=== PATIENT | male | born 1965 | race Caucasian/White ===

== ENCOUNTER 2019-02-04 08:05 | Inpatient (IN) | payer OTHER ==
--- NOTE | 2019-01-29 11:02 | RAD REPORT ---
EXAM DESCRIPTION: RAD - Chest Pa And Lat (2 Views) - 01/29/2019 10:56 am CLINICAL HISTORY: preop Chest pain. COMPARISON: Chest Single View dated 10/22/2018; Chest Single View dated 01/14/2017; Chest Single View d ated 10/13/2016 FINDINGS: The lungs are clear. The heart is normal in size. No displaced fractures. IMPRESSION: No acute or concerning finding suspected.
[2019-01-29 11:26] LABS: Protime INR 0.89
[2019-01-29 11:29] LABS: Absolute Lymphocytes (CBC) 1.9 K/uL (0.7-4.9); Basophils % 1.2 % (0-1.3); Eosinophils % 9.4 % (0-4.4); Hematocrit 42.4 % (39.6-49.0); Lymphocytes % 29.5 % (15.3-44.8); MPV 11.3 fL (7.6-11.3); RBC Red Blood Cell Count 5.22 M/uL (4.33-5.43)
[2019-01-29 11:35] LABS: BUN Blood Urea Nitrogen 20 mg/dL (7-18); Bicarbonate 24 mmol/L (21-32); Glucose Level 98 mg/dL (74-106); Potassium 4.3 mmol/L (3.5-5.1); Sodium Level 139 mmol/L (136-145)
[2019-01-29 12:38] LABS: Blood Morphology Comment NOT SEEN (NOT SEEN); Platelet Estimate DECR; Urine White Blood Cell Casts OK
--- NOTE | 2019-01-29 18:41 | EKG ---
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
[~2019-02-04 08:05] MED LIST: TRANEXAMIC ACID 1,000 MG in NA CHLORIDE 0.9% 50 ML IV SCH; VANCOMYCIN/NS 1 gm 1 GM/250 ML BAG IV SCH
--- OUTSIDE RECORDS SUMMARY | 2019-02-04 08:08 | XMS REPORT ---
:1965 Author Organization e[employer] Care Team Providers Name Role Phone Ribera Julian Provider Role Unavailable Allergies, Adverse Reactions, Alerts Substance Reaction Event Type N.K.D.A. Info Not Available Non Drug Allergy Problems Problem Type Condition Code Onset Dates Condition Status Problem Type 2 diabetes mellitus without E11.9 Active complication, without long-term current use of insulin Problem Essential hypertension I10 Active Problem Primary osteoarthritis of left knee M17.12 Active Assessment Pain in joint of left knee M25.562 Active Assessment Primary osteoarthritis of left knee M17.12 Active Problem Dyslipidemia E78.5 Active Medications Medication Code Code Instructions Start End Status Dosage System Date Date GlipiZIDE [facility] [address]-67 Active not defined Atenolol NDC 0 Active not defined Omeprazole NDC 0 Active not defined Farxiga NDC 0 Active not defined Gabapentin NDC 0 Active not defined PredniSONE [facility] 22457289764 20 MG Orally Active 1 tablet BID Augmentin [facility] 66444641264 875-125 MG Active 1 tablet Orally every 12 hrs Simvastatin [facility] [address]-28 Active not defined Metformin HCl [facility] [address]-81 Active not defined Results No Known Results Summary Purpose [facility]
--- OUTSIDE RECORDS SUMMARY | 2019-02-04 08:08 | XMS REPORT ---
[...] osteoarthritis of left knee M17.12 Active Assessment Primary osteoarthritis of left knee M17.12 Active Problem Dyslipidemia E78.5 Active Medications Medication Code Code Instructions Start End Status Dosage System Date Date Atenolol NDC 0 Active not defined Tramadol HCl [facility] 59973699611 50 MG Orally May 08, Active 1 tablet every 6 hrs 2017 as needed Farxiga NDC 0 Active not defined Gabapentin NDC 0 Active not defined Omeprazole NDC 0 Active not defined Metformin HCl [facility] [address]-97 Active not defined Simvastatin [facility] [address]-33 Active not defined GlipiZIDE [facility] [address]-64 Active not defined Results No Known Results Summary Purpose [employer] Submission
--- OUTSIDE RECORDS SUMMARY | 2019-02-04 08:09 | XMS REPORT ---
:1965 Author Organization e[employer] Care Team Providers Name Role Phone Julian Ribera Provider Role Unavailable Allergies, Adverse Reactions, Alerts [...] in joint of left knee M25.562 Active Problem Dyslipidemia E78.5 Active Medications Medication Code Code Instructions Start End Status Dosage System Date Date Tramadol HCl [facility] 50713431456 50 MG Orally Active 1 tablet as every 6 hrs needed Ibuprofen [facility] 20276584659 200 MG Orally Active 1 tablet Three times a with food day or milk as needed Simvastatin [facility] [address]-18 Active not defined Farxiga NDC 0 Active not defined GlipiZIDE [facility] [address]-54 Active not defined Atenolol NDC 0 Active not defined Lyrica [facility] 01107247625 25 MG Orally Active 2 capsules Twice a day Omeprazole [facility] 47918811215 Active not defined Metformin HCl [facility] [address]-46 Active not defined Results No Known Results Summary Purpose [employer] Submission
--- OUTSIDE RECORDS SUMMARY | 2019-02-04 08:09 | XMS REPORT ---
:1965 Author Organization e[employer] Care Team Providers Name Role Phone Julian Ribera Provider Role Unavailable Allergies No Known Allergies Problems Problem Type Condition Code Onset Dates Condition Status Problem Type 2 diabetes mellitus without E11.9 Active complication, without long-term current use of insulin Problem Essential hypertension I10 Active Problem Primary osteoarthritis of left knee M17.12 Active Problem Dyslipidemia E78.5 Active Medications Medication Code Code Instructions Start End Date Status Dosage System Date Tramadol HCl [facility] 73997485506 50 MG Orally December 09, Active 1 tablet every 6 hrs 2019 as needed Results No Known Results Summary Purpose [employer]Works Submission
--- OUTSIDE RECORDS SUMMARY | 2019-02-04 08:09 | XMS REPORT ---
[...] M17.12 Active Problem Dyslipidemia E78.5 Active Medications No Known Medications Results No Known Results Summary Purpose [employer] Submission
--- OUTSIDE RECORDS SUMMARY | 2019-02-04 08:09 | XMS REPORT ---
[...] Start End Status Dosage System Date Date Ibuprofen [facility] 36523558983 200 MG Orally Active 1 tablet Three times a with food day or milk as needed GlipiZIDE [facility] [address]-43 Active not defined Farxiga NDC 0 Active not defined Atenolol NDC 0 Active not defined Lyrica [facility] 88255242009 25 MG Orally Active 2 capsules Twice a day Simvastatin [facility] [address]-09 Active not defined Omeprazole [facility] [address]-04 Active not defined Metformin HCl [facility] [address]-89 Active not defined Tramadol HCl [facility] 68513759751 50 MG Orally Active 1 tablet as every 6 hrs needed Results No Known Results Summary Purpose [employer]ClinicalWorks Submission
--- OUTSIDE RECORDS SUMMARY | 2019-02-04 08:09 | XMS REPORT ---
[...] End Status Dosage System Date Date GlipiZIDE [facility] [address]-96 Active not defined Atenolol NDC 0 Active not defined Metformin HCl [facility] [address]-39 Active not defined Gabapentin NDC 0 Active not defined Simvastatin [facility] [address]-60 Active not defined Farxiga NDC 0 Active not defined Omeprazole NDC 0 Active not defined Tramadol HCl [facility] 42310269721 50 MG Orally Active 1 tablet every 6 hrs as needed Results No Known Results Summary Purpose [employer]Works Submission
--- OUTSIDE RECORDS SUMMARY | 2019-02-04 08:09 | XMS REPORT ---
[...] Status Dosage System Date Tramadol HCl [facility] 01563803824 50 MG Orally Aug 22, Active 1 tablet every 6 hrs PRN 2019 as needed pain Results No Known Results Summary Purpose [employer]ClinicalWorks Submission
--- OUTSIDE RECORDS SUMMARY | 2019-02-04 08:09 | XMS REPORT ---
[...] Problem Dyslipidemia E78.5 Active Medications Medication Code System Code Instructions Start End Date Status Dosage Date Xarelto [facility] 68887179718 10 MG Orally Once January 29, Active 1 tablet a day 2019 with food Results No Known Results Summary Purpose [employer]ClinicalWorks Submission
--- OUTSIDE RECORDS SUMMARY | 2019-02-04 08:09 | XMS REPORT ---
[...] Start End Date Status Dosage System Date Tylenol (#4) NDC 0 60/300 oral Q 6 February 02February 12, Active take 1 with codeine hrs PRN 2018 2018 tablet Tramadol HCl [facility] 93672789813 50 MG Orally February 02March 04, Active 1 tablet every 6 hrs 2018 2018 as needed Results No Known Results Summary Purpose [employer]ClinicalWorks Submission
[2019-02-04] MEDS ORDERED: CEFAZOLIN/SWI 2gm 2 GM/20 ML SYR ONE (08:46)
[2019-02-04] MEDS ORDERED: D50W 25 GM/50 ML SYRINGE IV ONE (08:46)
[2019-02-04] MEDS ORDERED: NA CHLORIDE 0.9% 1,000 ML ONE ×2 (08:46→14:08)
[2019-02-04] MEDS ORDERED: FENTANYL CITR 250 MCG/5 ML ONE ×2 (09:29→10:10)
[2019-02-04] MEDS ORDERED: MIDAZOLAM HCL 2 MG/2 ML INJ ONE ×2 (09:29→10:10)
[2019-02-04] MEDS ORDERED: PROPOFOL 200 MG/20 ML VIAL IV ONE (09:29)
[2019-02-04] MEDS ORDERED: LIDOCAINE 2% MPF 5 ML VIAL ONE (09:29)
[2019-02-04] MEDS ORDERED: EPINEPHRINE/PF 1 MG/ML AMP ONE (10:10)
[2019-02-04] MEDS ORDERED: DEXAMETHASONE 4 MG/ML VIAL ONE (10:10)
[2019-02-04] MEDS ORDERED: ROPLVACAINE HCL 20 ML ONE (10:11)
[2019-02-04] MEDS: BUPIVACA 0.5%/EPI 0.0005%/PF 30 ML VIAL ONE ×2 (12:03→13:40)
[2019-02-04] MEDS: NA CHLORIDE 0.9% 1,000 ML ONE ×2 (12:05→12:25)
[2019-02-04] MEDS ORDERED: KETOROLAC 30 MG/ML INJ ONE (13:36)
[2019-02-04] MEDS: HYDROMORPHONE HCL 2 MG/ML inj ONE ×4 (14:15→14:39)
--- NOTE | 2019-02-04 14:19 | P.BOP ---
Preoperative diagnosis: left knee osteoarthritis Postoperative diagnosis: same Primary procedure: left total knee arthroplasty Development Planner: NONE,NONE Estimated blood loss: 20 cc Specimen: left knee bone remnants Findings: see dictation Anesthesia: General Complications: None Implants: Ric Persona 9 STD CR femur, G tibia, 10 mm CR Poly Fluids & blood products: per anesthesia record; TT: 80 mins @ 300 mmHg Transferred to: Recovery Room Condition: Good
[2019-02-04] MEDS ORDERED: DOCUSATE NA 100 MG CAP PO PRN (14:20)
[2019-02-04] MEDS ORDERED: ONDANSETRON 4 MG/2 ML VIAL IV PRN (14:20)
[2019-02-04] MEDS ORDERED: TRAMADOL HCL 50 MG TAB PO PRN (14:23)
[2019-02-04] MEDS: HYDROMORPHONE HCL 1 MG/ML INJ ONE ×2 (14:49→15:06)
--- NOTE | 2019-02-04 15:10 | RAD REPORT ---
EXAM DESCRIPTION: RAD - Knee Left 2 View - 02/04/2019 2:59 pm CLINICAL HISTORY: Left knee surgery FINDINGS: Postsurgical changes left knee arthroplasty. Prosthesis is in good position No fracture or dislocation
[2019-02-04 15:13] LABS: Hematocrit 41.6 % (39.6-49.0)
[2019-02-04] MEDS ORDERED: MORPHINE 4 MG/ML SYR IV ONE ×2 (15:25→15:32)
[2019-02-04] MEDS: MORPHINE 4 MG/ML SYR IV PRN ×3 (15:25→21:19)
[2019-02-04 15:29] VITALS: O2SAT 97
[2019-02-04] MEDS ORDERED: GLUCAGON 1 MG/VIAL IM PRN (15:58)
[2019-02-04] MEDS ORDERED: D50W 25 GM/50 ML SYRINGE IV PRN (15:58)
--- NOTE | 2019-02-04 16:00 | P.CNS ---
Date of Consult: 02/04/19 Reason for Consult: Medical management Requesting Physician: Julian Ribera Primary Care Provider: Dr. Tamayo; Ortho-Dr. Ribera Chief Complaint: Status post left total knee replacement History of Present Illness: 53-year-old male presented to the hospital for elective surgery-left total knee replacement. Patient with underlying diabetes mellitus type 2-non insulin dependent, hypertension, hyperlipidemia and diabetic neuropathy. Patient has been suffering from left knee arthritis. Patient has failed conservative treatment including corticosteroid and Visco supplemental injections. Patient had total left knee replacement today. I was consulted for medical management. Patient currently stable at this time postoperatively. Patient with well controlled diabetes and hypertension. No complaints noted at this time. Allergies acetaminophen [From Vicodin] Allergy (Verified 01/29/19 10:07) Unknown hydrocodone [From Vicodin] Allergy (Verified 01/29/19 10:07) Unknown Home medications list reviewed: Yes Home Medications: Atenolol 100 mg PO [id number] 10/19/18 Dapagliflozin Propanediol [Farxiga] 10 mg PO DAILY 10/19/18 Metformin ER [Glucophage ER*] 1,000 mg PO BID 10/19/18 Omeprazole 20 mg PO BID 10/19/18 Pregabalin [Lyrica] 100 mg PO BID 10/19/18 Simvastatin 40 mg PO BEDTIME 10/19/18 glipiZIDE [Glipizide] 5 mg PO BID 10/19/18 Semaglutide [Ozempic] 0.25 mg SQ EVERY 7TH DAY 01/29/19 - Past Medical/Surgical History Diabetic: Yes -: Diabetes mellitus type 2, non-insulin dependent -: Hyperlipidemia -: Neuropathy -: Obstructive sleep apnea -: Asthma -: Osteoarthritis -: HTN -: Left foot fx repair (pin in place) -: Left knee sx x7 -: tonsillectomy -: Right 1st and 2nd toe amputations -: hernia repair Psychosocial/ Personal History: Patient is - Family History Father Medical History: Hypertension, Diabetes Sister Medical History: Diabetes Mother Medical History: Diabetes, Stroke Notes: breast - Social History Smoking Status: Current every day smoker Alcohol use: Yes CD- Drugs: No Caffeine use: Yes Place of Residence: Home Review of Systems General: As per HPI Eyes: Unremarkable ENT: Unremarkable Respiratory: Unremarkable Cardiovascular: Unremarkable Gastrointestinal: Unremarkable Genitourinary: Unremarkable Musculoskeletal: Leg Pain Integumentary: Unremarkable Neurological: Unremarkable Lymphatics: Unremarkable Physical Examination Temp Pulse Resp BP Pulse Ox 97.8 F 88 14 147/79 H 02/04/19 15:01 02/04/19 15:01 02/04/19 15:01 02/04/19 15:01 General: Alert, In no apparent distress, Cooperative HEENT: Atraumatic, Normocephalic, PERRLA, Mucous membr. moist/pink Neck: Supple Respiratory: Clear to auscultation bilaterally, Normal air movement Cardiovascular: Normal pulses, Regular rate/rhythm Gastrointestinal: Normal bowel sounds, Soft and benign, Non-distended, No tenderness, No masses, No rebound, No guarding Musculoskeletal: Other (Postoperative changes noted to the left knee) Neurological: Normal speech, Normal strength at 5/5 x4 extr, Normal tone, Normal affect Laboratory Data (last 24 hrs) 02/04/19 14:42: Hgb 13.2 L, Hct 41.6 Conclusions/Impression: Impression: Severe left knee arthritis, failed conservative therapy status post total left knee replacement Diabetes mellitus type 2, [id number] Hypertension Hyperlipidemia Obstructive sleep apnea Plan: Case discussed at length with orthopedics. Patient status post total left knee replacement. Will restart home medications for diabetes, hypertension, hyperlipidemia. Patient will continue with CPAP at night. DVT prophylaxis to be initiated. Pain medication will be provided. Physical therapy to be initiated tomorrow. Orthopedics plan of care is likely discharge on Saturday with home health/physical therapy. Will continue to reassess. Will provide Accu-Cheks and sliding scale. Will follow along with Orthopedics. Time Spent Managing Pts care (In Minutes): 55
[2019-02-04] MEDS: INSULIN -REGULAR HUMAN 50 UNIT/0.5 ML ML SQ SCH ×2 (16:30→21:27)
[2019-02-04] MEDS: CEFAZOLIN/SWI 2gm 2 GM/20 ML SYR IVP SCH (17:02)
[2019-02-04 19:49] VITALS: BMI 36.3
[2019-02-04] MEDS: CODEINE 30MG/APAP 300MG TAB PO PRN ×2 (20:02→23:59)
[2019-02-04] MEDS ORDERED: HOME MED 1 EA UNK (Pregabalin [Lyrica] 100 MG) PO SCH (21:00)
[2019-02-04] MEDS ORDERED: METFORMIN 1000 MG PO SCH (21:00)
[2019-02-04] MEDS ORDERED: HOME MED 1 EA UNK (Simvastatin [Simvastatin] 40 MG) PO SCH (21:00)
[2019-02-04] MEDS ORDERED: HOME MED 1 EA UNK (Omeprazole [Omeprazole] 20 MG) PO SCH (21:00)
[2019-02-04] MEDS ORDERED: GLIPIZIDE 5 MG PO SCH (21:00)
--- NOTE | 2019-02-04 22:20 | P.OP ---
Preoperative diagnosis: left knee osteoarthritis Postoperative diagnosis: same Primary procedure: left total knee arthroplasty Anesthesia: general Estimated blood loss: 20 cc Specimen: left knee bone remnants Findings: see dictation Operative Technique: Indication For Procedure: Alessandro is a 53-year-old male, who presented to my clinic with left knee pain due to left knee osteoarthritis. The patient failed conservative treatment measures including home exercises, corticosteroid injections and viscosupplementation injections. He reported continued pain that affect his activities of daily living. He was recommended for total knee arthoplasty. Description Of Procedure: After informed consent was obtained, the patient was identified in preop holding area. The left lower extremity was marked. The patient underwent a femoral nerve block performed by Anesthesia. He was then taken back to the operative room and transferred to the operating table in supine fashion and placed under general anesthesia. The left lower extremity was then prepped and draped in usual sterile fashion. A time-out was initiated. Correct patient and procedure were confirmed and identified. The patient had received preoperative prophylactic antibiotics. The right lower extremity was exsanguinated and the tourniquet was inflated to 300 mmHg. Approximately, a 20 cm longitudinal incision was made over the anterior aspect of the knee centered over the patella. A standard median parapatellar approach was taken. The dissection was taken to the extensor mechanism. A median parapatellar arthrotomy was then performed. The patella was then everted and the fat pad and medial and lateral meniscus were excised. A lateral release was performed of the patella and osteophytes were removed using a rongeur. There was minimal cartilage wear on the undersurface of the patella and it was decided to not resurface the patella. Next, attention was taken to the femur, retractors were placed within the knee and the knee was held in flexion. A partial synovectomy was performed over the anterior aspect of the distal femur. A cutting block has been created preoperatively using CT imaging and the block was then placed over the distal femur and then positioned and was stacked into place and pins were placed within the guide hole in the block. The distal femoral cutting guide was then placed over the pre-placed guide pin and the distal femur was cut after proper confirming using an Albert wing. After this was performed, the anterior-posterior distal femoral cuts were made as well as the chamfer cut without complication. MCL and lateral collateral were protected as well as patellar tendon with knee retractors. Bone remnants were then removed and sent to Pathology. Next attention was taken to the proximal tibia. The soft tissue medially was then elevated off the proximal tibia directly off bone using Bovie electrocautery. Pre-made cutting block was placed over the proximal tibia and once locked into position, pin were placed as well as the alignment margaux was used to ensure proper placement of the cutting guide. There was overall good alignment and position of the cutting guide. Pins were then placed. The cutting block was removed. The cutting guide was placed on the proximal tibia and again the albert wing was then used to ensure proper depth of the cut. An osteotome then used to make cuts around the PCL and the saw was used to cut the proximal tibia and the proximal tibial cut was then removed with the meniscal grasper. Bone fragments were then removed and meniscectomies were completed. Next, the knee was held in 90 degrees of flexion and forward extension and a 10-mm guide was then selected and there was good overall fit and stability in flexion and extension. Next, the trials were placed, size 9 CR standard femur was placed and a size G tibia with a 10 mm poly. The knee was then ranged and had good stability, both in forward flexion and extension and had full range of motion. The knee was ranged and there was good stability of the patella as well as the rest of the knee. The tibia was marked with the Bovie electrocautery. The femur was drilled and once in proper position and the tibia was punched. Trial implants were then removed. The knee was then irrigated thoroughly with pulsed lavage normal saline. A 0.5% Marcaine with epinephrine was then used 30 cc for local anesthetic and to aid with postoperative pain control. The cement was prepared as well as the implant. Size G tibia was then placed followed by the size 9 standard CR femur. Excess cement was then removed using [place] elevator. A 10-mm trial poly was then placed and the knee was held in full extension as the cement hardened. Once the cement was completely hardened, the knee was ranged with good overall stability as well as good flexion and extension. Trial poly ethylene liner was removed and a final 10 mm CR poly was placed and locked in position. The knee was again irrigated thoroughly with normal saline. The tourniquet was let down. Hemostasis was achieved with Bovie electrocautery. The extensor mechanism was closed with #1 Vicryl in an interrupted fashion followed by #1 Vicryl in a running fashion. Fascia was then approximated using 0 Vicryl. Subcutaneous tissue was approximated used 2-0 Vicryl and the skin was approximated using a skin staple. Sterile dressings were applied. The patient was awakened and transferred to PACU in stable condition. Postoperative Plan: He will be weightbearing as tolerated. Physical therapy will be consulted to aid with mobilization and he will be admitted for pain management and blood pressure monitoring given his history of diabetes mellitus , hyperlipidemia and hypertension. He will stay at least 2 midnights while in the hospital. CPM machine will be placed in the PACU postoperatively. Complications: None Implants: Ric Persona Size 9 STD femur, G tibia, 10 mm CR poly Fluids & blood products: per anesthesia record; TT: 80 mins @ 300 mmHg Transferred to: Recovery Room Condition: Good
[2019-02-05] MEDS: CEFAZOLIN/SWI 2gm 2 GM/20 ML SYR IVP SCH ×2 (00:02→08:31)
[2019-02-05] MEDS: MORPHINE 4 MG/ML SYR IV PRN ×4 (04:34→21:01)
[2019-02-05] MEDS ORDERED: ATENOLOL 100 MG PO SCH (06:00)
[2019-02-05] MEDS: ENOXAPARIN 30 MG/0.3 ML SQ SCH ×2 (06:03→08:32)
[2019-02-05] MEDS: CODEINE 30MG/APAP 300MG TAB PO PRN ×5 (06:03→23:18)
[2019-02-05 06:22] LABS: Absolute Lymphocytes (CBC) 1.3 K/uL (0.7-4.9); Basophils % 0.6 % (0-1.3); Eosinophils % 0.7 % (0-4.4); Hematocrit 38.5 % (39.6-49.0); Lymphocytes % 14.2 % (15.3-44.8); MPV 10.8 fL (7.6-11.3); Monocytes % 12.1 % (3.3-12.3); RBC Red Blood Cell Count 4.71 M/uL (4.33-5.43)
[2019-02-05] MEDS: INSULIN -REGULAR HUMAN 50 UNIT/0.5 ML ML SQ SCH ×4 (07:30→21:00)
--- NOTE | 2019-02-05 08:07 | P.PN ---
Subjective Date of Service: 02/05/19 Primary Care Provider: Dr. Tamayo; Ortho-Dr. Ribera Chief Complaint: Status post left total knee replacement some breakthrough pain overnight as block wore off; Tylenol #3 not providing adequate pain relief at this time Physical Examination - Vital Signs Temperature: 97.9 F Blood Pressure: 112/57 Pulse: 84 Respirations: 18 Pulse Ox (%): 96 - Physical Exam General: Alert, In no apparent distress Musculoskeletal: Other (LLE: dressing c/d/i; NVI distally) - Studies Laboratory Data (last 24 hrs) 02/05/19 05:45: WBC 9.0 D, Hgb 12.6 L, Hct 38.5 L, Plt Count 158 D 02/04/19 14:42: Hgb 13.2 L, Hct 41.6 Assessment And Plan - Plan Alessandro is a 53 yo male s/p L TKA POD#1 w/ h/o DM, HTN -Dr. Curry for medical management -PT to mobilize; WBAT LLE -lovenox for DVT prophylaxis -will make tramadol 50 mg scheduled Q6 hours to aid with pain control
[2019-02-05] MEDS: CELECOXIB 100 MG CAPSULE PO SCH (08:29)
[2019-02-05] MEDS: TRAMADOL HCL 50 MG TAB PO SCH ×3 (08:29→19:38)
[2019-02-05] MEDS ORDERED: HOME MED 1 EA UNK (Dapagliflozin Propanediol [Farxiga] 10 MG) PO SCH (09:00)
--- NOTE | 2019-02-05 14:48 | P.PN ---
Subjective Date of Service: 02/05/19 Primary Care Provider: Dr. Tamayo; Ortho-Dr. Ribera Chief Complaint: Status post left total knee replacement Subjective: Doing well (Patient reports some pain to the knee this morning.) Physical Examination - Vital Signs Temperature: 97.9 F Blood Pressure: 112/57 Pulse: 84 Respirations: 18 Pulse Ox (%): 96 - Physical Exam General: Alert, In no apparent distress, Oriented x3, Cooperative HEENT: Atraumatic Neck: Supple Respiratory: Clear to auscultation bilaterally, Normal air movement Cardiovascular: Normal pulses, Regular rate/rhythm Gastrointestinal: Normal bowel sounds, Soft and benign, Non-distended Neurological: Normal speech, Normal strength at 5/5 x4 extr, Normal tone - Studies Laboratory Data (last 24 hrs) 02/05/19 05:45: WBC 9.0 D, Hgb 12.6 L, Hct 38.5 L, Plt Count 158 D 02/04/19 14:42: Hgb 13.2 L, Hct 41.6 Medications List Reviewed: Yes Assessment & Plan Discharge Plan: Home Plan to discharge in: 24 Hours Physician Review Additional Text: Impression: Severe left knee arthritis, failed conservative therapy status post total left knee replacement Diabetes mellitus type 2, pbc-tfubyhi-pquqduvxr Hypertension Hyperlipidemia Obstructive sleep apnea Plan: Patient to start physical therapy. Pain medication adjusted by orthopedics. Continue with DVT prophylaxis-Lovenox. Patient continues with home medications for diabetes, hypertension and hyperlipidemia. Arrangements for Dc planning in place. Likely discharge as early as tomorrow. Patient will do outpatient physical therapy in [place]. Continue to monitor and assess closely. Lab stable. Time Spent Managing Pts Care (In Minutes): 55
[2019-02-06] MEDS: MORPHINE 4 MG/ML SYR IV PRN ×4 (01:04→13:49)
[2019-02-06] MEDS: TRAMADOL HCL 50 MG TAB PO SCH ×3 (02:19→14:25)
[2019-02-06] MEDS: CODEINE 30MG/APAP 300MG TAB PO PRN (04:22)
[2019-02-06 06:31] LABS: Absolute Lymphocytes (CBC) 1.2 K/uL (0.7-4.9); Basophils % 0.4 % (0-1.3); Eosinophils % 2.8 % (0-4.4); Hematocrit 38.5 % (39.6-49.0); Lymphocytes % 17.7 % (15.3-44.8); MPV 11.1 fL (7.6-11.3); Monocytes % 14.2 % (3.3-12.3)
[2019-02-06] MEDS: INSULIN -REGULAR HUMAN 50 UNIT/0.5 ML ML SQ SCH ×2 (07:30→11:30)
[2019-02-06] MEDS: CELECOXIB 100 MG CAPSULE PO SCH (08:30)
[2019-02-06] MEDS ORDERED: ENOXAPARIN 40 MG/0.4 ML SQ SCH (09:00)
[2019-02-06] MEDS ORDERED: TYLENOL PO PRN (09:00)
[2019-02-06] MEDS ORDERED: ENOXAPARIN 30 MG/0.3 ML SQ SCH (09:00)
--- NOTE | 2019-02-06 10:02 | P.PN ---
Subjective Date of Service: 02/06/19 Primary Care Provider: Dr. Tamayo; Ortho-Dr. Ribera Chief Complaint: Status post left total knee replacement Subjective: Other (Patient reported pain to the left lower extremity. Medications for pain yesterday by orthopedics.) Physical Examination - Vital Signs Temperature: 97.8 F Blood Pressure: 164/83 Pulse: 98 Respirations: 16 Pulse Ox (%): 94 - Physical Exam General: Alert, In no apparent distress, Oriented x3, Cooperative HEENT: Atraumatic Neck: Supple Respiratory: Clear to auscultation bilaterally, Normal air movement Cardiovascular: Normal pulses, Regular rate/rhythm Gastrointestinal: Normal bowel sounds, Soft and benign Musculoskeletal: Other (Left lower extremity currently an oscillating machine.) Neurological: Normal speech, Normal strength at 5/5 x4 extr, Normal tone, Normal affect - Studies Laboratory Data (last 24 hrs) 02/06/19 06:03: WBC 7.1 D, Hgb 12.4 L, Hct 38.5 L, Plt Count 130 L Medications List Reviewed: Yes Assessment & Plan Discharge Plan: Home Plan to discharge in: 24 Hours Physician Review Additional Text: Impression: Severe left knee arthritis, failed conservative therapy status post total left knee replacement Diabetes mellitus type 2, smn-ryssgtt-wyijhxbgr Hypertension Hyperlipidemia Obstructive sleep apnea Plan: Severe left knee arthritis, failed conservative therapy status post total left knee replacement: Orthopedics adjusted pain medications yesterday. Pain medication to be adjusted today. Tylenol #3 increased to Tylenol #4. Will increase Lyrica to 150 mg 1 pill twice daily for better pain control. Patient to continue with physical therapy today. Likely discharge as early as today. Patient plans to do outpatient physical therapy at [place]. There is plan for outpatient DVT oral prophylaxis at discharge. Await recommendations by orthopedics about discharge. Diabetes mellitus type 2, gfd-vulfeyc-xrezujjvf: Overall stable. Continue with home medication. Hypertension: Stable. Continue with home medication. Hyperlipidemia: Stable, continue with home medication. Obstructive sleep apnea: Continue with CPAP at night. Time Spent Managing Pts Care (In Minutes): 55
--- NOTE | 2019-02-06 11:52 | P.DS ---
Admission Date: 02/04/19 Discharge Date: 02/06/19 Primary Care Provider: Dr. Tamayo; Ortho-Dr. Ribera Disposition: ROUTINE DISCHARGE Discharge Condition: GOOD Reason for Admission: Status post left total knee replacement Consultations: Dr. Curry- Hospitalist Medicine Procedures: Left total knee arthroplasty on 02/04/2019 Brief History of Present Illness: Alessandro is a 53 yo male w/ PMHx of DM, HTN, hyperlipidemia and underwent L TKA on 02/06/2019 without complication Hospital Course: Alessandro underwent L TKA on 02/04/19 without complication and was admitted to the floor. Dr. Curry was consulted for medical management while on the floor. His blood glucose was monitored and his vital signs remained stable while on the floor. Physical therapy was consulted and aided with mobilization while in the hospital. He was discharged on 02/06/2019 in stable condition. He was on lovenox for DVT prophylaxis while in the hospital and will start Xarelto while at home. Vital Signs/Physical Exam: Temp Pulse Resp BP Pulse Ox 97.8 F 98 H 16 164/83 H 94 02/06/19 10:01 02/06/19 10:01 02/06/19 10:01 02/06/19 10:01 02/06/19 10:01 Laboratory Data at Discharge: WBC 7.1 K/uL (4.3-10.9) D 02/06/19 06:03 Hgb 12.4 g/dL (13.6-17.9) L 02/06/19 06:03 Hct 38.5 % (39.6-49.0) L 02/06/19 06:03 Plt Count 130 K/uL (152-406) L 02/06/19 06:03 PT 10.6 SECONDS (9.5-12.5) 01/29/19 10:35 INR 0.89 01/29/19 10:35 APTT 30.8 SECONDS (24.3-36.9) 01/29/19 10:35 Sodium 139 mmol/L (136-145) 01/29/19 10:35 Potassium 4.3 mmol/L (3.5-5.1) 01/29/19 10:35 BUN 20 mg/dL (7-18) H 01/29/19 10:35 Creatinine 0.82 mg/dL (0.55-1.3) 01/29/19 10:35 Glucose 98 mg/dL (74-106) 01/29/19 10:35 Home Medications: Atenolol 100 mg PO [id number] 10/19/18 Dapagliflozin Propanediol [Farxiga] 10 mg PO DAILY 10/19/18 Metformin ER [Glucophage ER*] 1,000 mg PO BID 10/19/18 Omeprazole 20 mg PO BID 10/19/18 Pregabalin [Lyrica] 100 mg PO BID 10/19/18 Simvastatin 40 mg PO BEDTIME 10/19/18 glipiZIDE [Glipizide] 5 mg PO BID 10/19/18 Semaglutide [Ozempic] 0.25 mg SQ EVERY 7TH DAY 01/29/19 Tylenol #4 1 tab PO Q6HP PRN 02/06/19 traMADol HCL [Ultram*] 50 mg PO Q6H tab 02/06/19 Patient Discharge Instructions: keep dressing c/d/i; change dressing with new aquacel bandage on Saturday02/09/19 and clean incision with alcohol swabs; begin Xarelto on 02/07/2019 with breakfast for DVT prophylaxis Diet: ADA Activity: Weight bearing as tolerated Followup: Julian Ribera MD [ACTIVE - CAN ADMIT] -
[2019-02-06 13:10] VITALS: BP 100/73; TEMP 97.3
[2019-02-06] MEDS ORDERED: PREGABALIN 150 MG PO SCH (21:00)
[2019-02-11] MEDS ORDERED: SEMAGLUTIDE 0.25 MG SQ SCH (09:00)
== END 2019-02-06 14:31 | disposition home or self-care (01) | DRG 470 ==
LOC: PRE 08:05 → 2ND 15:21 → 4TH 02-05 20:44
PROVIDERS: ADMIT Orthopaedic Surgery Sports Medicine; ATTEND Orthopaedic Surgery Sports Medicine
PROC: 0SRD0J9 Replacement of Left Knee Joint with Synthetic Substitute, Cemented, Open Approach (ICD-10-PCS; principal; 2019-02-04 09:45)
DX: M17.12 Unilateral primary osteoarthritis, left knee (principal); E11.40 Type 2 diabetes mellitus with diabetic neuropathy, unspecified; I10 Essential (primary) hypertension; E78.5 Hyperlipidemia, unspecified; G47.33 Obstructive sleep apnea (adult) (pediatric); F17.210 Nicotine dependence, cigarettes, uncomplicated; Z79.84 Long term (current) use of oral hypoglycemic drugs
CPT/HCPCS: 36415; 71046; 80048; 82962; 85014; 85018; 85025; 85610; 85730; 88304; 88305; 88311; 93005; 97110; 97116; 97139; 97163; 97530; J0171; J0690; J1170; J1650; J2250; J2704; J2795; J3010; J3370; J7030

== ENCOUNTER 2020-05-25 11:22 | Emergency (ER) | payer OTHER ==
--- OUTSIDE RECORDS SUMMARY | 2020-05-25 11:25 | XMS REPORT | Continuity of Care Document ---
:1965 Author Organization [facility] t Address [address] [place] [address] Care Team Providers Name Role Phone Unavailable Unavailable Unavailable Problems Condition Condition Condition Status Onset Resolution Last Treating Co mments Source Name Details Category Date Date Treatment Clinician Date Type 2 Type [address] [facility] diabetes diabetes [facility] - mellitus mellitus Mem[facility] a without without l complicati complicati Ou tpati on, on, ent without without Clinics long-term long-term current current use of use of insulin insulin Essential Essential Problem Active [facility] hypertensi hypertensi Taya kes - on on [facility] Primary Primary Problem Active [facility] osteoarthr osteoarthr Taya kes - itis of itis of Memoria left knee left knee l [facility] Dyslipidem Dyslipidem Problem Active [facility] ia ia [facility] Presence Presence Problem Active [facility] left of left [facility] - artificial artificial Me moria knee joint knee joint l [facility] Pain, Pain, Diagnosis Active [facility] joint, joint, [facility] - knee, left knee, left Me moria l [facility] Allergies, Adverse Reactions, Alerts This patient has no known allergies or adverse reactions. Medications Ordered Filled Start Stop Current Ordering Indication Dosage Frequency Signature Comments Components Source Medication Medication Date Date Medication? Clinician (SIG) Name Name Tramadol Tramadol 2019-0 2019- No Julian [address] [facility] HCl HCl 03-02 Ribera as needed [facility] - 00:00: 00:00 [facility] 00 [facility] ent Clinics Xarelto Xarelto 2019-0 Yes Julian [address] [facility] 6-20 Ribera with food [facility] - 00:[facility]: [facility] Lyrica Lyrica Yes Julian [address] [facility]era [facility] Ibuprofen Ibuprofen Yes Julian [address] [facility] Rbiera with food [facility] - or milk as Memoria needed l Outpati ent Clinics Atenolol Atenolol Yes Julian not [facility] Ribera defined [facility] Tylenol Tylenol Yes Julian not [facility] (#4) with (#4) with Ribera defined Taya kes - codeine codeine [facility] Farxiga Farxiga Yes Julian not [facility]era defined [facility] GlipiZIDE GlipiZIDE Yes Julian not [facility] defined [facility] Omeprazole Omeprazole Yes Julian not [facility]era defined [facility] Ozempic Ozempic Yes Julian not [facility] Ribera defined [facility] Simvastatin Simvastatin Yes Julian not [facility]era defined [facility] Metformin Metformin Yes Julian not [facility] HCl HCl [facility] defined [facility] Procedures This patient has no known procedures. Encounters Start End Encounter Admission Attending Care Care Encounter Source Date/Time Date/Time Type Type Clinicians Facility Department ID 2020-02-15 2020-02-15 Outpatient Mic Gruber [id number] [facility] 15:[facility]00 15:00[facility]00 [facility] 2019-07-30 2019-07-30 Outpatient Mic Gruber [id number] [facility] 15:30:00 15:30:00 t [facility] 2019-05-04 2019-05-04 Outpatient Mic Gruber [id number] [facility] 15:30:00 15:30:00 t [facility] 2019-03-23 2019-03-23 [facility] [id number] [facility] 11:00:00 11:00:00 t [facility] 2019-03-02 2019-03-02 [facility] [id number] [facility] 08:59:00 08:59:00 t [facility] 2019-02-17 2019-02-17 [facility] [id number] [facility] 14:30:00 14:30:00 t [facility] 2019-02-05 2019-02-05 [facility] [id number] [facility] [address] 10:30:00 10:30:00 t [facility] 2019-02-05 2019-02-05 [facility] [id number] [facility] 09[facility]38:00 09:38:00 t [facility] 2019-02-03 2019-02-03 [facility] [id number] [facility] 13:19:00 13:19:00 t [facility] 2019-02-02 2019-02-02 [facility] [id number] [facility] 14:39:00 14:39:00 t [facility] 2019-02-02 2019-02-02 [facility] [id number] [facility] 12:32:00 12:32:00 t [facility] 2019-01-29 2019-01-29 [facility] [id number] [facility] [address] 13:21:00 13:21:00 t [facility] 2019-01-29 2019-01-29 [facility] [id number] [facility] [address] 11:43:00 11:43:00 t [facility] 2019-01-29 2019-01-29 [facility] [id number] [facility] 09:33:00 09:33:00 t [facility] 2018-12-22 2018-12-22 [facility] [id number] [facility] [address] 14:29:00 14:29:00 t [facility] 2018-12-10 2018-12-10 [facility] [id number] [facility] 14:29:00 14:29:00 t [facility] 2018-12-09 2018-12-09 [facility] [id number] [facility] [address] 11:06:00 11:06:00 t [facility] 2018-12-08 2018-12-08 [facility] [id number] [facility] 14:04:00 14:04:00 t [facility] 2018-12-03 2018-12-03 [facility] [id number] [facility] 08:30:00 08:30:00 t [facility] 2018-09-29 2018-09-29 [facility] [id number] [facility] 15:00:00 15:00:00 t [facility] 2018-08-22 2018-08-22 [facility] [id number] [facility] 11:04:00 11:04:00 t [facility] 2018-05-20 2018-05-20 Outpatient Mic Gruber [id number] [facility] 15:30:00 15:30:00 t [facility] 2018-05-08 2018-05-08 Outpatient Mic Gruber [id number] [facility] 08:30:00 08:30:00 t [facility] 2018-04-28 2018-04-28 Outpatient Mic Gruber [id number] [facility] 13:30:00 13:30:00 t [facility] Results This patient has no known results.
--- NOTE | 2020-05-25 12:11 | ER ---
Nurse's Notes [facility] Name: Alessandro Taylor Age: 54 yrs Sex: Male : 1965 Arrival Date: 05/25/2020 Time: 11:29 Bed 23 Private MD: Diagnosis: Laceration without foreign body of right thumb without damage to nail Presentation: 05/25 11:33 Chief complaint: Patient states: Lac on R thumb by a knife on Saturday. Now swelling , ca1 draining a bit, tender and red. Coronavirus screen: Client denies travel out of the [place] in the last 14 days. At this time, the client does not indicate any symptoms associated with coronavirus-19. Ebola Screen: Patient negative for fever greater than or equal to 101.5 degrees Fahrenheit, and additional compatible Ebola Virus Disease symptoms Patient denies exposure to infectious person. Patient denies travel to an Ebola-affected area in the 21 days before illness onset. No symptoms or risks identified at this time. Initial Sepsis Screen: Does the patient meet any 2 criteria? No. Patient's initial sepsis screen is negative. Does the patient have a suspected source of infection? No. Patient's initial sepsis screen is negative. Risk Assessment: Do you want to hurt yourself or someone else? Patient reports no desire to harm self or others. Onset of symptoms was May 23, 2020. 11:33 Method Of Arrival: Ambulatory ca1 11:33 Acuity: ROBERT 5 ca1 12:06 Acuity: ROBERT 4 hb Historical: - Allergies: 11:40 HYDROCODONE; ca1 11:40 Vicodin; ca1 - Home Meds: 11:40 atenolol 100 mg Oral tab 1 tab once daily [Active]; Jardiance oral oral [Active]; ca1 glipizide 10 mg Oral tab 1 tab once daily [Active]; Lyrica 150 mg Oral 1 cap daily [Active]; metformin 1,000 mg Oral tr24 2 tabs once daily [Active]; omeprazole 40 mg oral cpDR 1 cap once daily [Active]; simvastatin 40 mg Oral tab 1 tab once daily [Active]; - PMHx: 11:40 Diabetes - NIDDM; GERD; High Cholesterol; Hyperlipidemia; Hypertension; osteomyelitis; ca1 - PSHx: 11:40 toe amputation; Hernia repair; ca1 - Immunization history:: Adult Immunizations up to date, Last tetanus immunization: up to date. - Social history:: Smoking status: Patient reports the use of cigarette tobacco products, smokes one-half pack cigarettes per day. Screenin:12 Abuse screen: Denies threats or abuse. Denies injuries from another. Nutritional hb screening: No deficits noted. Tuberculosis screening: No symptoms or risk factors identified. Fall Risk None identified. Assessment: 12:12 General: Appears in no apparent distress. Behavior is calm, cooperative. Pain: Pain hb currently is 6 out of 10 on a pain scale. Neuro: Level of Consciousness is awake, alert, obeys commands, Oriented to person, place, time, situation. Cardiovascular: Capillary refill < 3 seconds Patient's skin is warm and dry. Respiratory: Respiratory effort is even, unlabored, Respiratory pattern is regular, symmetrical. GI: No signs and/or symptoms were reported involving the gastrointestinal system. : No signs and/or symptoms were reported regarding the genitourinary system. EENT: No signs and/or symptoms were reported regarding the EENT system. Derm: Skin is pink, warm \T\ dry. Musculoskeletal: No signs and/or symptoms reported regarding the musculoskeletal system. Injury Description: Laceration sustained to dorsal aspect of proximal phalanx of right thumb is not bleeding. 12:24 Reassessment: Discharge pending shot time. hb Vital Signs: 11:33 BP 130 / 69; Pulse 83; Resp 15 S; Temp 97.1(TE); Pulse Ox 99% on R/A; Weight 117.03 kg ca1 (R); Height 5 ft. 10 in. (177.80 cm) (R); Pain 6/10; 11:33 Body Mass Index 37.02 (117.03 kg, 177.80 cm) ca1 ED Course: 11:29 Patient arrived in ED. mr 11:37 Triage completed. ca1 11:40 Arm band placed on right wrist. ca1 11:54 Roseann Sheehan, LUIS FELIPE is Primary Nurse. hb 12:05 Chino Goldstein PA is PHCP. jr8 12:05 Fede Rodriguez MD is Attending Physician. jr8 12:12 Patient has correct armband on for positive identification. Bed in low position. Call hb light in reach. 12:12 No provider procedures requiring assistance completed. hb 12:12 Patient did not have IV access during this emergency room visit. 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 Exp: hb 10/01/2022. Lot #: [id number]. } Route: IM; Site: right deltoid; 12:36 Follow up: Response: No adverse reaction hb Outcome: 12:10 Discharge ordered by MD. grant 12:36 Discharged to home ambulatory. hb 12:36 Condition: stable 12:36 Discharge instructions given to patient, Instructed on discharge instructions, follow up and referral plans. medication usage, wound care, Demonstrated understanding of instructions, follow-up care, medications, wound care, Prescriptions given X 1. 12:37 Patient left the ED. Signatures: Venus Alex mr Chino Goldstein PA PA jr8 Roseann Sheehan, RN RN Shereen Mills RN RN ca1
--- NOTE | 2020-05-25 12:11 | EDPHYS ---
Physician Documentation [facility] Name: Alessandro Taylor Age: 54 yrs Sex: Male : 1965 Arrival Date: 05/25/2020 Time: 11:29 Bed 23 Private MD: ED Physician Fede Rodriguez HPI: 05/25 13:06 This 54 yrs old Male presents to ER via Ambulatory with complaints of Thumb jr8 laceration. 13:06 The patient or guardian reports a laceration, 2.5 cm(s), simple. The complaints affect jr8 the IP of right thumb. Onset: The symptoms/episode began/occurred acutely, 2 day(s) ago. Modifying factors: The symptoms are alleviated by nothing, the symptoms are aggravated by movement. Associated signs and symptoms: The patient has no apparent associated signs or symptoms. Severity of symptoms: At their worst the symptoms were mild, in the emergency department the symptoms are unchanged. The patient has not experienced similar symptoms in the past. The patient has not recently seen a physician. Stated that he was cleaning deer meat and accidently but his thumb with knife . Historical: - Allergies: 11:40 HYDROCODONE; ca1 11:40 Vicodin; ca1 - Home Meds: 11:40 atenolol 100 mg Oral tab 1 tab once daily [Active]; Jardiance oral oral [Active]; ca1 glipizide 10 mg Oral tab 1 tab once daily [Active]; Lyrica 150 mg Oral 1 cap daily [Active]; metformin 1,000 mg Oral tr24 2 tabs once daily [Active]; omeprazole 40 mg oral cpDR 1 cap once daily [Active]; simvastatin 40 mg Oral tab 1 tab once daily [Active]; - PMHx: 11:40 Diabetes - NIDDM; GERD; High Cholesterol; Hyperlipidemia; Hypertension; osteomyelitis; ca1 - PSHx: 11:40 toe amputation; Hernia repair; ca1 - Immunization history:: Adult Immunizations up to date, Last tetanus immunization: up to date. - Social history:: Smoking status: Patient reports the use of cigarette tobacco products, smokes one-half pack cigarettes per day. ROS: 13:06 Eyes: Negative for injury, pain, redness, and discharge, ENT: Negative for injury, jr8 pain, and discharge, Neck: Negative for injury, pain, and swelling, Cardiovascular: Negative for chest pain, palpitations, and edema, Respiratory: Negative for shortness of breath, cough, wheezing, and pleuritic chest pain, Abdomen/GI: Negative for abdominal pain, nausea, vomiting, diarrhea, and constipation, Back: Negative for injury and pain, Neuro: Negative for headache, weakness, numbness, tingling, and seizure. 13:06 MS/extremity: Positive for laceration. Exam: 13:06 Constitutional: This is a well developed, well nourished patient who is awake, alert, jr8 and in no acute distress. Cardiovascular: Regular rate and rhythm with a normal S1 and S2. No gallops, murmurs, or rubs. Normal PMI, no JVD. No pulse deficits. Respiratory: Lungs have equal breath sounds bilaterally, clear to auscultation and percussion. No rales, rhonchi or wheezes noted. No increased work of breathing, no retractions or nasal flaring. MS/ Extremity: Pulses equal, no cyanosis. Neurovascular intact. Full, normal range of motion. Neuro: Awake and alert, GCS 15, oriented to person, place, time, and situation. Cranial nerves II-XII grossly intact. Motor strength 5/5 in all extremities. Sensory grossly intact. Cerebellar exam normal. Normal gait. 13:06 Skin: injury, laceration(s), the wound is approximately 2.5 cm(s), with a depth of .2 cm(s), of the IP of right thumb, that can be described as clean, no foreign body, linear, without bleeding. Vital Signs: 11:33 BP 130 / 69; Pulse 83; Resp 15 S; Temp 97.1(TE); Pulse Ox 99% on R/A; Weight 117.03 kg ca1 (R); Height 5 ft. 10 in. (177.80 cm) (R); Pain 6/10; 11:33 Body Mass Index 37.02 (117.03 kg, 177.80 cm) ca1 MDM: 12:08 Patient medically screened. jr8 12:09 Data reviewed: vital signs, nurses notes, and as a result, I will discharge patient. jr8 Data interpreted: Pulse oximetry: on room air is 99 %. Interpretation: normal. Counseling: I had a detailed discussion with the patient and/or guardian regarding: the historical points, exam findings, and any diagnostic results supporting the discharge/admit diagnosis, the need for outpatient follow up, a family practitioner, to return to the emergency department if symptoms worsen or persist or if there are any questions or concerns that arise at home. ED course: Discussed with patient that because laceration happened on Saturday and he is diabetic. Would be worse to try and suture at this point. No large gap noted. Should secondarily heal just fine. Will put on Abx and f/u with PCP. Patient good with this . 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 Exp: hb 10/01/2022. Lot #: [id number]. } Route: IM; Site: right deltoid; 12:36 Follow up: Response: No adverse reaction hb Disposition: 14:46 Co-signature as Attending Physician, Fede Rodriguez MD I agree with the assessment and kdr plan of care. Disposition: 05/25/20 12:10 Discharged to Home. Impression: Laceration without foreign body of right thumb without damage to nail. - Condition is Stable. - Discharge Instructions: Delayed Wound Closure. - Prescriptions for Bactrim DS 800- 160 mg Oral Tablet - take 1 tablet by ORAL route every 12 hours for 7 days; 14 tablet. - Medication Reconciliation Form, Thank You Letter, Antibiotic Education, Prescription Opioid Use form. - Follow up: Private Physician; When: 5 - 6 days; Reason: Wound Recheck, Recheck today's complaints, Continuance of care, Re-evaluation by your physician. - Problem is new. - Symptoms have improved. Signatures: Fede Rodriguez MD MD [facility] Chino Goldstein PA PA jr8 Roseann Sheehan RN RN Shereen Mills RN RN [facility] Corrections: (The following items were deleted from the chart) 12:37 12:10 05/25/2020 12:10 Discharged to Home. Impression: Laceration without foreign body hb of right thumb without damage to nail. Condition is Stable. Forms are Medication Reconciliation Form, Thank You Letter, Antibiotic Education, Prescription Opioid Use. Follow up: Private Physician; When: 5 - 6 days; Reason: Wound Recheck, Recheck today's complaints, Continuance of care, Re-evaluation by your physician. Problem is new. Symptoms have improved. jr8
[2020-05-25] MEDS ORDERED: TETANUS & DIPHTHERIA TOX,ADULT 0.5 ML VIAL ONE (12:23)
[2020-05-25 12:46] VITALS: BP 130/69; TEMP 97.1; O2SAT 99
== END 2020-05-25 12:37 | disposition home or self-care (01) ==
LOC: ER 11:22
DX: S61.011A Laceration without foreign body of right thumb without damage to nail, initial encounter (principal); W26.0XXA Contact with knife, initial encounter; Y93.89 Activity, other specified; Y92.9 Unspecified place or not applicable; Z23 Encounter for immunization; Z88.5 Allergy status to narcotic agent; F17.210 Nicotine dependence, cigarettes, uncomplicated; I10 Essential (primary) hypertension; E11.9 Type 2 diabetes mellitus without complications
CPT/HCPCS: 90471; 90714; 99283

== ENCOUNTER 2022-01-29 15:22 | Emergency (ER) | payer BC, OTHER ==
--- OUTSIDE RECORDS SUMMARY | 2022-01-29 15:25 | XMS REPORT | Continuity of Care Document ---
:1965 Author Organization [facility] t Address [address] [place] [address] Care Team Providers Name Role Phone ALEC Primary Care Physician Unavailable Doug Attending Clinician Unavailable DR ALEC Attending Clinician Unavailable [id number] Attending Clinician Unavailable [id number] Attending Clinician Unavailable DR RICHIE Attending Clinician Unavailable [phone] Attending Clinician Unavailable Doug Admitting Clinician Unavailable DR ALEC Admitting Clinician Unavailable DR RICHIE Admitting Clinician Unavailable Payers Payer Name Policy Type Policy Number Effective Date Expiration Date S ource [facility] BLUE [id number] [facility] BLUE [place] BL[place] [id number] [facility] Problems This patient has no known problems. Allergies, Adverse Reactions, Alerts Allergy Allergy Status Severity Reaction(s) Onset Inactive Treating Comm ents Source Name Type Date Date Clinician No Known MA Active UNKNOWN [facility] Medications Ordered Filled [place] Stop Current Ordering Indication Dosage Frequency Signature Comments Components Source Medication Medication Date Date Medication? Clinician (SIG) Name Name Tramadol Tramadol 2018- 2019- No Julian 1 tablet Common HCl HCl 03-02 Ribera as needed [facility] 00:00: 00:00 - [facility] :00 [facility] Xarelto Xarelto 2018- Yes Julian 1 tablet Common 6-20 Ribera with food [facility] 00:00: - [facility] 00 [facility] Lyrica Lyrica Yes Julian 2 capsules Co mmon Ribera [facility] Ibuprofen Ibuprofen Yes Julian 1 tablet Common Ribera with food [facility] or milk as - [facility] needed [facility] Atenolol Atenolol Yes Julian not Comm on Ribera defined [facility] Tylenol Tylenol Yes Julian not Common (#4) with (#4) with Ribera defined Sp beto codeine codeine [facility] Farxiga Farxiga Yes Julian not Common Ribera defined [facility] GlipiZIDE GlipiZIDE Yes Julian not Co mmon Ribera defined [facility] Omeprazole Omeprazole Yes Julian not Common Ribera defined [facility] Ozempic Ozempic Yes Julian not Common Ribera defined [facility] Simvastatin Simvastatin Yes Julian not Common Ribera defined [facility] Metformin Metformin Yes Julian not Co mmon HCl HCl Ribera defined [facility] Procedures This patient has no known procedures. Encounters [place] End Encounter Admission Attending Care Care Encounter Source Date/Time Date/Time Type Type Clinicians Facility Department ID 2021-12-22 Outpatient [facility] [id number] El 12:07:01 [id number] [facility] 2021-12-08 Outpatient [place], [facility] [id number] Common 09:23:00 Justice [id number] [facility] 2021-09-06 Outpatient [place], [facility] [id number] Common 13:22:17 Justice [id number] [facility] 2021-09-06 Outpatient [place], [facility] [id number] Common 11:29:36 Justice [id number] [facility] 2022-01-28 2022-01-28 Outpatient [facility] [id number] El 11:27:00 13:14:00 [id number] [facility] [id number] [facility] 2021-12-22 2021-12-22 Outpatient DELMAR FAYE [facility] [id number] 12:08:00 12:40:00 [id number] [facility] 2021-12-11 2021-12-11 ambulatory [facility] [id number] Common 00:00:00 00:00:00 [facility] 2021-02-14 2021-02-14 Outpatient [facility] [id number] Common 00:00:00 00:00:00 [facility] 2020-02-15 2020-02-15 [facility] [id number] Common 15:00:00 15:00:00 [facility] 2019-07-30 2019-07-30 [facility] [id number] Common 15:30:00 15:30:00 [facility] 2019-05-04 2019-05-04 [facility] [id number] Common 15:30:00 15:30:00 t [facility] 2019-03-23 2019-03-23 [facility] [id number] Common 11:00:00 11:00:00 t [facility] 2019-03-02 2019-03-02 [facility] [id number] Common 08:59:00 08:59:00 t [facility] 2019-02-17 2019-02-17 [facility] [id number] Common 14:30:00 14:30:00 t [facility] 2019-02-05 2019-02-05 [facility] [id number] Common 10:30:00 10:30:00 t [facility] Bone [facility] 2019-02-05 2019-02-05 [facility] [id number] Common 09:38:00 09:38:00 t [facility] Sp[facility] 2019-02-03 2019-02-03 [facility] [id number] Common 13:19:00 13:19:00 t [facility] Bone [facility] Sp[facility] 2019-02-02 2019-02-02 [facility] [id number] Common 14:39:00 14:39:00 t [facility] Bone [facility] Spiri t and Joint [facility] 2019-02-02 2019-02-02 [facility] [id number] Common 12:32:00 12:32:00 t [facility] Bone [facility] Sp[facility] 2019-01-29 2019-01-29 [facility] [id number] Common 13:21:00 13:21:00 t [facility] Bone [facility] Spiri t and Joint [facility] 2019-01-29 2019-01-29 [facility] [id number] Common 11:43:00 11:43:00 t Bone Bone and Spiri t and Joint [facility] 2019-01-29 2019-01-29 [facility] [id number] Common 09:33:00 09:33:00 t Bone Bone and Spiri t and Joint [facility] 2018-12-22 2018-12-22 [facility] [id number] Common 14:29:00 14:29:00 t Bone Bone and Spiri t and Joint [facility] 2018-12-10 2018-12-10 [facility] [id number] Common 14:29:00 14:29:00 t Bone Bone and Spiri t and Joint [facility] 2018-12-09 2018-12-09 [facility] [id number] Common 11:06:00 11:06:00 t Bone Bone and Spiri t and Joint [facility] 2018-12-08 2018-12-08 [facility] [id number] Common 14:04:00 14:04:00 t Bone Bone and Spiri t and Joint [facility] 2018-12-03 2018-12-03 [facility] [id number] Common 08:30:00 08:30:00 t Bone Bone and Spiri t and Joint [facility] 2018-09-29 2018-09-29 [facility] [id number] Common 15:00:00 15:00:00 t Bone Bone and Spiri t and Joint [facility] 2018-08-22 2018-08-22 [facility] [id number] Common 11:04:00 11:04:00 t Bone Bone and Spiri t and Joint [facility] 2018-05-20 2018-05-20 [facility] [id number] Common 15:30:00 15:30:00 t Bone Bone and Spiri t and Joint [facility] 2018-05-08 2018-05-08 [facility] [id number] Common 08:30:00 08:30:00 t Bone Bone and Spiri t and Joint [facility] 2018-04-28 2018-04-28 [facility] [id number] Common 13:30:00 13:30:00 t Bone Bone and Spiri t and Joint [facility] Results This patient has no known results.
[2022-01-29] MEDS ORDERED: Ringers Lactate 1,000 ML IV ONE (16:58)
[2022-01-29 17:11] LABS: Absolute Lymphocytes (CBC) 0.4 K/uL (0.7-4.9); Hematocrit 41.2 % (39.6-49.0); Lymphocytes % 7.8 % (15.3-44.8); MPV 9.6 fL (7.6-11.3); RBC Red Blood Cell Count 5.45 M/uL (4.33-5.43)
[2022-01-29 17:41] LABS: Albumin 3.6 g/dL (3.4-5.0); Bilirubin Total 0.6 mg/dL (0.2-1.0); Potassium 4.4 mmol/L (3.5-5.1); Protein, Total 7.7 g/dL (6.4-8.2)
--- NOTE | 2022-01-29 18:08 | RAD REPORT ---
EXAM DESCRIPTION: CTAbdomen Pelvis W Contrast - 01/29/2022 5:59 pm CLINICAL HISTORY: Diarrhea, fever COMPARISON: <Comparisons> TECHNIQUE: CT of the abdomen and pelvis was performed. All CT scans are performed using dose optimization technique as appropriate and may include automated exposure control or mA/KV adjustment according to patient size. FINDINGS: Lower chest: No acute abnormality. Liver: No acute abnormality or suspicious lesions. Biliary: No biliary ductal dilatation. Stomach: No significant focal abnormality. Duodenum: No significant focal abnormality. Pancreas: No significant abnormality. Spleen: No significant abnormality. Adrenal: No suspicious lesions. Kidney/ureter: No hydronephrosis. No renal calculi. Retroperitoneum: No retroperitoneal adenopathy. Vascular: No aneurysm. Atherosclerosis Bowel: Circumferential thickening of the ascending and proximal transverse colon. Stranding is presen t.. Normal appendix. No bowel obstruction. Peritoneum: No ascites or free air. Bladder: Grossly unremarkable. Reproductive: No adnexal masses. Bones: No acute fracture. Other: n/a IMPRESSION: Colitis involving the ascending and proximal transverse colon with differential to inclu de infectious, inflammatory, as well as ischemic etiologies. Normal appendix.
[2022-01-29] MEDS ORDERED: METRONIDAZOLE 500mg IVPB 500 MG/100 ML BAG IV ONE (19:46)
--- NOTE | 2022-01-29 19:54 | ER ---
Nurse's Notes [facility] Name: Alessandro Taylor Age: 56 yrs Sex: Male : 1965 Arrival Date: 01/29/2022 Time: 15:27 Bed 13 Private MD: Justice Camacho Diagnosis: Colitis Presentation: 01/29 16:32 Chief complaint: Pt's sates "he started with diarrhea since Saturday, worked aa5 outside in heat all day and Saturday woke up with chills and he had a fever of 103.0*F". Pt's states "I took him to urgent care yesterday and they said his blood pressure was low and his heart rate was high and they advised us to go to the ER". Pt denies vomiting and reports taking Imodium since Saturday night without any relief. Pt also c/o "pain all over". Coronavirus screen: diarrhea, vomiting. Ebola Screen: No symptoms or risks identified at this time. Initial Sepsis Screen: Does the patient meet any 2 criteria? HR > 90 bpm. Does the patient have a suspected source of infection? No. Patient's initial sepsis screen is negative. Risk Assessment: Do you want to hurt yourself or someone else? Patient reports no desire to harm self or others. Onset of symptoms was January 2022. 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 - Social history:: Smoking status: Patient/guardian denies using tobacco. Screenin:09 Abuse screen: Denies threats or abuse. Denies injuries from another. Nutritional sm5 screening: No deficits noted. Tuberculosis screening: No symptoms or risk factors identified. Fall Risk None identified. Assessment: 21:09 General: Appears in no apparent distress. Behavior is cooperative. Pain: Complains of sm5 pain in abdomen. Neuro: No deficits noted. Level of Consciousness is awake, alert, obeys commands, Oriented to person, place, time, situation. Cardiovascular: No deficits noted. Capillary refill < 3 seconds Patient's skin is warm and dry. Respiratory: No deficits noted. Airway is patent Trachea midline Respiratory effort is even, unlabored. GI: Abdomen is obese, Reports diarrhea. 22:00 Reassessment: No changes from previously documented assessment. Patient and/or family 5 updated on plan of care and expected duration. Pain level reassessed. Vital Signs: 16:32 BP 96 / 54; Pulse 104; Resp 18 S; Temp 98.9(O); Pulse Ox 100% on R/A; Weight 117.03 kg aa5 (R); Height 5 ft. 10 in. (177.80 cm) (R); 20:06 BP 111 / 63; Pulse 108; Resp 17; Temp 102.3(O); sm5 21:08 BP 97 / 57; Pulse 101; Resp 18; Pulse Ox 94% on R/A; sm5 21:18 Pulse 99; Resp 18; Temp 99.7(O); Pulse Ox 96% on R/A; sm5 21:35 BP 97 / 55; Pulse 96; Resp 18; Pulse Ox 96% on R/A; sm5 21:40 BP 90 / 51 RA Sitting (auto/); Pulse 95; sm5 21:45 BP 82 / 57 RA Standing (auto/); Pulse 97; sm5 22:34 BP 98 / 53; Pulse 94; Resp 17; Pulse Ox 97% on R/A; sm5 16:32 Body Mass Index 37.02 (117.03 kg, 177.80 cm) aa5 ED Course: 15:27 Patient arrived in ED. am2 15:27 Justice Camacho MD is Private Physician. am2 16:30 Arm band placed on. aa5 16:40 Triage completed. aa5 16:47 Nathaniel De La Garza PA is PHCP. aa5 16:47 Javier Frye MD is Attending Physician. aa5 17:00 Initial lab(s) drawn, by me, sent to lab. Inserted saline lock: 20 gauge in right aa5 antecubital area, using aseptic technique. Blood collected. 18:01 CT Abd/Pelvis - IV Contrast Only In Process Unspecified. EDMS 18:36 Call light in reach. Side rails up X 1. Door closed. Noise minimized. Warm blanket mb7 given. 19:09 Isabella Hutchinson LUIS FELIPE is Primary Nurse. 5 22:34 No provider procedures requiring assistance completed. IV discontinued, intact, sm5 bleeding controlled, No redness/swelling at site. Pressure dressing applied. Administered Medications: 17:00 Drug: Lactated Ringers Solution 1000 ml Route: IV; Rate: 1000 bolus; Site: right aa5 antecubital; 17:02 CANCELLED (Physician Discretion; no nausea reportedd): Zofran (Ondansetron) 4 mg IVP aa5 once; over 2 minutes 20:05 Drug: Flagyl (metroNIDAZOLE) 500 mg Volume: 100 ml; Route: IVPB; Rate: 200 ml/hr; sm5 Infused Over: 30 mins; Site: left antecubital; 20:22 Follow up: IV Status: Completed infusion; IV Intake: 100ml 5 20:13 Drug: Acetaminophen 1000 mg Route: PO; sm5 20:43 Follow up: Response: No adverse reaction 5 20:22 Drug: Cipro (ciprofloxacin) 400 mg Volume: 200 ml; Route: IVPB; Infused Over: 60 mins; sm5 Site: left antecubital; 21:52 Follow up: IV Status: Completed infusion; IV Intake: 200ml 5 21:07 Drug: NS 0.9% 500 ml Route: IV; Rate: bolus; Site: left antecubital; sm5 21:52 Follow up: IV Status: Completed infusion; IV Intake: 500ml 5 Medication: 21:09 VIS not applicable for this client. sm5 Intake: 20:22 IV: 100ml; Total: 100ml. sm5 21:52 IV: 500ml; Total: 600ml. sm5 21:52 IV: 200ml; Total: 800ml. 5 Outcome: 19:54 Discharge ordered by . jim 22:34 Discharged to home ambulatory, with significant other. 5 22:34 Condition: stable 22:34 Discharge instructions given to patient, significant other, Instructed on discharge instructions, follow up and referral plans. no drinking with medication, medication usage, Demonstrated understanding of instructions, follow-up care, medications, Prescriptions given X 4. 22:35 Patient left the ED. 5 Signatures: Dispatcher [employer] EDMS Nathaniel De La Garza PA PA jmm Calderon, Audri, RN RN aa5 Alexa Stanford Mary mb7 Isabella Hutchinson, RN RN sm5 Corrections: (The following items were deleted from the chart) 16:40 16:32 Initial Sepsis Screen: Does the patient meet any 2 criteria? HR > 90 bpm. Does aa5 the patient have a suspected source of infection? No. Patient's initial sepsis screen is negative. aa5 16:40 16:32 Resp 18bpm; Spontaneous; Temp 98.9F Oral; aa5 aa5 21:51 21:43 BP 97 / 55; Pulse 96bpm; Resp 18bpm; Pulse Ox 96% RA; sm5 sm5
--- NOTE | 2022-01-29 19:54 | EDPHYS ---
Physician Documentation [facility] Name: Alessandro Taylor Age: 56 yrs Sex: Male : 1965 Arrival Date: 01/29/2022 Time: 15:27 Bed 13 Private MD: Justice Camacho ED Physician Javier Frye HPI: 01/29 16:41 This 56 yrs old Male presents to ER via Ambulatory with complaints of Diarrhea, Fever. jmm 16:41 The patient presents to the emergency department with nausea, diarrhea, abdominal pain. jmm Onset: The symptoms/episode began/occurred gradually, 4 day(s) ago. Possible causes: unknown. The symptoms are aggravated by nothing. The symptoms are alleviated by nothing. This is a 56 year old male with a history of dm, hlp, htn that presents to the ED with complaints of diarrhea beginning approx 4 to 5 days ago. Patient also states working outside. Denies vomiting but states having some nausea. . Historical: - Allergies: 16:31 HYDROCODONE; aa5 16:31 Vicodin; aa5 - PMHx: 16:31 Diabetes - NIDDM; GERD; High Cholesterol; Hyperlipidemia; Hypertension; osteomyelitis; aa5 16:37 Diabetic wound to right foot; aa5 - Immunization history:: Adult Immunizations unknown. - Social history:: Smoking status: Patient/guardian denies using tobacco. ROS: 16:41 Constitutional: Positive for body aches, chills, fever. jmm 16:41 Abdomen/GI: Positive for abdominal pain, nausea, diarrhea. 16:41 All other systems are negative. Exam: 16:41 Constitutional: This is a well developed, well nourished patient who is awake, alert, jmm and in no acute distress. Head/Face: atraumatic. Eyes: EOMI, no conjunctival erythema appreciated ENT: Moist Mucus Membranes Neck: Trachea midline, Supple Chest/axilla: Normal chest wall appearance and motion. Cardiovascular: Regular rate and rhythm. No edema appreciated Respiratory: Normal respirations, no respiratory distress appreciated 16:41 Back: Normal ROM Skin: General appearance color normal MS/ Extremity: Moves all extremities, no obvious deformities appreciated, no edema noted to the lower extremities Neuro: Awake and alert Psych: Behavior is normal, Mood is normal, Patient is cooperative and pleasant 16:41 Abdomen/GI: Inspection: abdomen appears normal, Bowel sounds: normal, Palpation: soft, mild abdominal tenderness, in all quadrants. Vital Signs: 16:32 BP 96 / 54; Pulse 104; Resp 18 S; Temp 98.9(O); Pulse Ox 100% on R/A; Weight 117.03 kg aa5 (R); Height 5 ft. 10 in. (177.80 cm) (R); 20:06 BP 111 / 63; Pulse 108; Resp 17; Temp 102.3(O); sm5 21:08 BP 97 / 57; Pulse 101; Resp 18; Pulse Ox 94% on R/A; sm5 21:18 Pulse 99; Resp 18; Temp 99.7(O); Pulse Ox 96% on R/A; sm5 21:35 BP 97 / 55; Pulse 96; Resp 18; Pulse Ox 96% on R/A; sm5 21:40 BP 90 / 51 RA Sitting (auto/); Pulse 95; sm5 21:45 BP 82 / 57 RA Standing (auto/); Pulse 97; sm5 22:34 BP 98 / 53; Pulse 94; Resp 17; Pulse Ox 97% on R/A; sm5 16:32 Body Mass Index 37.02 (117.03 kg, 177.80 cm) aa5 MDM: 16:53 Patient medically screened. [facility] 18:49 Data reviewed: vital signs, nurses notes. [facility] 19:53 Counseling: I had a detailed discussion with the patient and/or guardian regarding: the [facility] historical points, exam findings, and any diagnostic results supporting the discharge/admit diagnosis, lab results, radiology results, the need for outpatient follow up, to return to the emergency department if symptoms worsen or persist or if there are any questions or concerns that arise at home. 01/29 16:41 Order name: CBC with Diff; Complete Time: 17:19 [facility] 01/29 16:41 Order name: CMP; Complete Time: 17:43 [facility] 01/29 16:41 Order name: Lipase; Complete Time: 17:43 [facility] 01/29 17:28 Order name: CT Abd/Pelvis - IV Contrast Only; Complete Time: 18:12 [facility] 01/29 16:41 Order name: IV Saline Lock; Complete Time: 17:02 [facility] 01/29 16:41 Order name: Labs collected and sent; Complete Time: 17:02 aa5 Administered Medications: 17:00 Drug: Lactated Ringers Solution 1000 ml Route: IV; Rate: 1000 bolus; Site: right aa5 antecubital; 17:02 CANCELLED (Physician Discretion; no nausea reportedd): Zofran (Ondansetron) 4 mg IVP aa5 once; over 2 minutes 20:05 Drug: Flagyl (metroNIDAZOLE) 500 mg Volume: 100 ml; Route: IVPB; Rate: 200 ml/hr; sm5 Infused Over: 30 mins; Site: left antecubital; 20:22 Follow up: IV Status: Completed infusion; IV Intake: 100ml sm5 20:13 Drug: Acetaminophen 1000 mg Route: PO; sm5 20:43 Follow up: Response: No adverse reaction 5 20:22 Drug: Cipro (ciprofloxacin) 400 mg Volume: 200 ml; Route: IVPB; Infused Over: 60 mins; sm5 Site: left antecubital; 21:52 Follow up: IV Status: Completed infusion; IV Intake: 200ml sm5 21:07 Drug: NS 0.9% 500 ml Route: IV; Rate: bolus; Site: left antecubital; 5 21:52 Follow up: IV Status: Completed infusion; IV Intake: 500ml sm5 Disposition Summary: 01/29/22 19:54 Discharge Ordered Location: Home [facility] Condition: Stable [facility] Diagnosis - Colitis [facility] Followup: [facility] - With: Private Physician - When: 2 - 3 days - Reason: Recheck today's complaints, Continuance of care, Re-evaluation by your physician Discharge Instructions: - Discharge Summary Sheet [facility] - Diarrhea, Adult [facility] Forms: - Medication Reconciliation Form [facility] - Thank You Letter [facility] - Antibiotic Education [facility] - Prescription Opioid Use [facility] Prescriptions: - Cipro 500 mg Oral Tablet - take 1 tablet by ORAL route every 12 hours for 10 days; 20 tablet; Refills: 0, [facility] Product Selection Permitted - Flagyl 500 mg Oral Tablet - take 1 tablet by ORAL route every 6 hours for 10 days; 40 tablet; Refills: 0, [facility] Product Selection Permitted - ondansetron 4 mg Oral tablet,disintegrating - take 1 tablet by ORAL route every 4-6 hours As needed; 20 tablet; Refills: 0, [facility] Product Selection Permitted - dicyclomine 20 mg Oral Tablet - take 1 tablet by ORAL route 4 times per day; 20 tablet; Refills: 0, Product jim Selection Permitted Signatures: Dispatcher [employer] Nathaniel Duarte PA PA jmm Calderon, Audri RN RN aa5 Isabella Hutchinson RN RN sm5 Corrections: (The following items were deleted from the chart) 17:02 16:51 Zofran (Ondansetron) 4 mg IVP once; over 2 minutes ordered. jim aa5
[2022-01-29] MEDS ORDERED: ACETAMINOPHEN 500 MG TAB ONE (20:16)
[2022-01-29] MEDS ORDERED: CIPROFLOXACIN 400mg IV 400 MG/200 ML BAG IV ONE (20:23)
[2022-01-29] MEDS ORDERED: NA CHLORIDE 0.9% 500 ML ONE (21:12)
[2022-01-29 23:08] VITALS: TEMP 99.7
[2022-01-29 23:14] VITALS: BP 98/53; O2SAT 97
== END 2022-01-29 22:35 | disposition home or self-care (01) ==
LOC: ER 15:22
DX: K52.9 Noninfective gastroenteritis and colitis, unspecified (principal); I10 Essential (primary) hypertension; Z88.5 Allergy status to narcotic agent
CPT/HCPCS: 85025; 36415; 83690; 80053; 74177; Q9967; J7120; J7040; J3490; J0744; 96365; 96367; 99284

== ENCOUNTER 2022-02-02 18:58 | Inpatient (IN) | payer BC, OTHER ==
--- OUTSIDE RECORDS SUMMARY | 2022-02-02 19:01 | XMS REPORT | Continuity of Care Document ---
:1965 Author Organization [facility] t Address [address] [place] [address] Care Team Providers Name Role Phone ALEC Primary Care Physician Unavailable Doug Attending Clinician Unavailable DR ALEC Attending Clinician Unavailable [phone] Attending Clinician Unavailable [id number] Attending Clinician Unavailable DR RICHIE Attending Clinician Unavailable [phone] Attending Clinician Unavailable Doug Admitting Clinician Unavailable DR ALEC Admitting Clinician Unavailable DR RICHIE Admitting Clinician Unavailable Payers Payer Name Policy Type Policy Number Effective Date Expiration Date S ource [facility] BLUE [id number] [facility] BLUE CROSS BLUE [id number] [facility] Problems This patient has no known problems. Allergies, Adverse Reactions, Alerts Allergy Allergy Status Severity Reaction(s) Onset Inactive Treating Comm ents Source Name Type Date Date Clinician No Known MA Active UNKNOWN [facility] Medications Ordered Filled Start Stop Current Ordering Indication Dosage Frequency Signature Comments Components Source Medication Medication Date Date Medication? Clinician (SIG) Name Name Tramadol Tramadol 2018- 2019- No Julian 1 tablet Common HCl HCl 03-02- Ribera as needed Spirit 00:00: 00:00 - [facility] 00 :00 [facility] Xarelto Xarelto 2018- Yes Julian 1 tablet Common 6-20 Ribera with food [facility] 00:00: - [facility] 00 [facility] Lyrica Lyrica Yes Julian 2 capsules Co mmon Ribera [facility] Ibuprofen Ibuprofen Yes Julian 1 tablet Common Ribera with food Spirit or milk as - [facility] needed [facility] Atenolol Atenolol Yes Julian not Comm on Ribera defined [facility] Tylenol Tylenol Yes Julian not Common (#4) with (#4) with Ribera defined Sp beto codeine codeine [facility] Farxiga Farxiga Yes Julian not Common Ribera defined [facility] GlipiZIDE GlipiZIDE Yes Julian not Co mmon Ribera defined [facility] Omeprazole Omeprazole Yes Julian not Common Ribera defined [facility] Ozempic Ozempic Yes Julian not Common Ribera defined [facility] Simvastatin Simvastatin Yes Julian not Common Ribera defined [facility] Metformin Metformin Yes Julian not Co mmon HCl HCl Ribera defined [facility] Procedures This patient has no known procedures. Encounters Start End Encounter Admission Attending Care Care Encounter Source Date/Time Date/Time Type Type Clinicians Facility Department ID 2021-12-22 Outpatient [facility] [id number] El 12:07:01 [id number] [facility] 2021-12-08 Outpatient [place], [facility] [id number] Common 09:23:00 Justice [id number] [facility] 2021-09-06 Outpatient [place], [facility] [id number] Common 13:22:17 Justice [id number] [facility] 2021-09-06 Outpatient [place], [facility] [id number] Common 11:29:36 Justice [id number] [facility] 2022-01-28 2022-01-28 Outpatient GILBERTO DALEY [facility] [id number] El 11:27:00 13:14:00 [id number] [facility] [id number] [facility] 2021-12-22 2021-12-22 Outpatient DELMAR FAYE [facility] [id number] 12:08:00 12:40:00 [id number] [facility] 2021-12-11 2021-12-11 ambulatory [facility] [id number] Common 00:00:00 00:00:00 [facility] 2021-02-14 2021-02-14 Outpatient [facility] [id number] Common 00:00:00 00:00:00 [facility] 2020-02-15 2020-02-15 [facility] [id number] Common 15:00:00 15:00:00 [facility] 2019-07-30 2019-07-30 [facility] [id number] Common 15:30:00 15:30:00 [facility] 2019-05-04 2019-05-04 [facility] [id number] Common 15:30:00 15:30:00 [facility] 2019-03-23 2019-03-23 [facility] [id number] Common 11:00:00 11:00:00 [facility] 2019-03-02 2019-03-02 [facility] [id number] Common 08:59:00 08:59:00 [facility] 2019-02-17 2019-02-17 [facility] [id number] Common 14:30:00 14:30:00 [facility] 2019-02-05 2019-02-05 [facility] [id number] Common 10:30:00 10:30:00 [facility] 2019-02-05 2019-02-05 [facility] [id number] Common 09:38:00 09:38:00 [facility] 2019-02-03 2019-02-03 [facility] [id number] Common 13:19:00 13:19:00 [facility] 2019-02-02 2019-02-02 [facility] [id number] Common 14:39:00 14:39:00 t [facility] 2019-02-02 2019-02-02 [facility] [id number] Common 12:32:00 12:32:00 [facility] 2019-01-29 2019-01-29 [facility] [id number] Common 13:21:00 13:21:00 t [facility] 2019-01-29 2019-01-29 [facility] [id number] Common 11:43:00 11:43:00 t [facility] 2019-01-29 2019-01-29 [facility] [id number] Common 09:33:00 09:33:00 t [facility] Bone [facility] Spiri t and Joint [facility] 2018-12-22 2018-12-22 [facility] [id number] Common 14:29:00 14:29:00 t [facility] Bone [facility] Sp[facility] t [facility] 2018-12-10 2018-12-10 [facility] [id number] Common 14:29:00 14:29:00 t [facility] Bone [facility] Sp[facility] 2018-12-09 2018-12-09 [facility] [id number] Common 11:06:00 11:06:00 t Bone Bone and Spiri t and Joint [facility] 2018-12-08 2018-12-08 [facility] [id number] Common 14:04:00 14:04:00 t [facility] Bone and Spiri t and Joint [facility] 2018-12-03 2018-12-03 [facility] [id number] Common 08:30:00 08:30:00 t [facility] Bone [facility] Sp[facility] t [facility] 2018-09-29 2018-09-29 [facility] [id number] Common 15:00:00 15:00:00 t Bone Bone and Spiri t and Joint [facility] 2018-08-22 2018-08-22 [facility] [id number] Common 11:04:00 11:04:00 t [facility] Bone and Spiri t [facility] 2018-05-20 2018-05-20 [facility] [id number] Common 15:30:00 15:30:00 t Bone Bone and Spiri t [facility] 2018-05-08 2018-05-08 [facility] [id number] Common 08:30:00 08:30:00 t Bone Bone and Spiri t and Joint [facility] 2018-04-28 2018-04-28 [facility] [id number] Common 13:30:00 13:30:00 t Bone Bone and Spiri t and Joint [facility] Results This patient has no known results.
[2022-02-02] MEDS ORDERED: MORPHINE 4 MG/ML SYR ONE (20:26)
[2022-02-02] MEDS ORDERED: VANCOMYCIN 1 GM/VIAL ONE (20:26)
[2022-02-02] MEDS ORDERED: Levofloxacin500mg IV 500 MG/100 ML BAG IV ONE (20:27)
[2022-02-02] MEDS ORDERED: NA CHLORIDE 0.9% 1,000 ML ONE (20:27)
[2022-02-02] MEDS ORDERED: ONDANSETRON 4 MG/2 ML VIAL ONE (20:27)
[2022-02-02] MEDS ORDERED: NA CHLORIDE 0.9% 250 ML ONE (20:27)
[2022-02-02 20:33] LABS: Absolute Lymphocytes (CBC) 0.9 K/uL (0.7-4.9); Lymphocytes % 20.9 % (15.3-44.8); MCV 74.1 fL (80-100); MPV 8.7 fL (7.6-11.3); RBC Red Blood Cell Count 4.72 M/uL (4.33-5.43)
[2022-02-02 20:37] LABS: Protime INR 1.15
--- NOTE | 2022-02-02 20:38 | RAD REPORT ---
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 This is long-standing. Osteotomy sites are stable. No erosive or destructive bone process identifiab le. Large plantar spur is present. Tibiotalar joint degenerative changes are seen. Fluid is present along the plantar surface of the foot at the base of the metatarsal level. Soft tiss ues are generally edematous. The soft tissue wound is superficial and could be an open wound or surgi leonides defect. No suspicious gas pattern in the soft tissues. IMPRESSION: Soft tissue edema with no suspicious gas pattern in the soft tissues. No acute or destructive bone process.
[2022-02-02 20:49] LABS: Albumin 3.2 g/dL (3.4-5.0); Bilirubin Direct 0.1 mg/dL (0-0.2); Bilirubin Total 0.3 mg/dL (0.2-1.0); Potassium 3.9 mmol/L (3.5-5.1); Protein, Total 6.6 g/dL (6.4-8.2)
[2022-02-02 21:13] LABS: Urine Blood Negative (Negative); Urine Glucose 3+ (Negative); Urine Protein Negative (Negative)
[2022-02-02 21:43] LABS: Blood Morphology Comment NOT SEEN (NOT SEEN); Platelet Estimate ADEQ; Toxic Granulation PRESENT; White Blood Cell Scan OK (OK)
--- NOTE | 2022-02-02 21:53 | EDPHYS ---
Physician Documentation [facility] Name: Alessandro Taylor Age: 56 yrs Sex: Male : 1965 Arrival Date: 02/02/2022 Time: 19:02 Bed 16 Private MD: ED Physician Wily Ford HPI: 02/02 19:44 This 56 yrs old Male presents to ER via Ambulatory with complaints of Wound Infection, mh7 - foot. 19:44 The patient presents with cellulitis of the right foot. Description: erythematous, mh7 swollen, warm. Onset: The symptoms/episode began/occurred 3 day(s) ago. Possible cause(s): unknown. Associated signs and symptoms: Pertinent positives: drainage, erythema, fever, swelling, Pertinent negatives: nausea, shortness of breath, vomiting. Modifying factors: the symptoms are alleviated by nothing, the symptoms are aggravated by walking. Severity of symptoms: At their worst the symptoms were moderate, earlier today, in the emergency department the symptoms are unchanged. States that his right foot had drainage then an ulcer on bottom. He saw his wound care doctor today and was told to come to the ER for evaluation and possible admission for IV antibiotics due to redness and swelling of the foot.. 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 - Social history:: Smoking status: Patient/guardian denies using tobacco, the patient reports quitting approximately 1 years ago, Patient uses alcohol, on a daily basis. ROS: 19:44 Eyes: Negative for injury, pain, redness, and discharge, ENT: Negative for injury, mh7 pain, and discharge, Neck: Negative for injury, pain, and swelling, Cardiovascular: Negative for chest pain, palpitations, and edema, Respiratory: Negative for shortness of breath, cough, wheezing, and pleuritic chest pain, Abdomen/GI: Negative for abdominal pain, nausea, vomiting, diarrhea, and constipation, Back: Negative for injury and pain, : Negative for injury, bleeding, discharge, and swelling, Neuro: Negative for headache, weakness, numbness, tingling, and seizure, Psych: Negative for depression, anxiety, suicide ideation, homicidal ideation, and hallucinations, Allergy/Immunology: Negative for hives, rash, and allergies, Endocrine: Negative for neck swelling, polydipsia, polyuria, polyphagia, and marked weight changes, Hematologic/Lymphatic: Negative for swollen nodes, abnormal bleeding, and unusual bruising. Exam: 19:44 Head/Face: Normocephalic, atraumatic. Eyes: Pupils equal round and reactive to light, mh7 extra-ocular motions intact. Lids and lashes normal. Conjunctiva and sclera are non-icteric and not injected. Cornea within normal limits. Periorbital areas with no swelling, redness, or edema. Neck: Trachea midline, no thyromegaly or masses palpated, and no cervical lymphadenopathy. Supple, full range of motion without nuchal rigidity, or vertebral point tenderness. No Meningismus. Chest/axilla: Normal chest wall appearance and motion. Nontender with no deformity. No lesions are appreciated. Cardiovascular: Regular rate and rhythm with a normal S1 and S2. No gallops, murmurs, or rubs. Normal PMI, no JVD. No pulse deficits. Respiratory: Lungs have equal breath sounds bilaterally, clear to auscultation and percussion. No rales, rhonchi or wheezes noted. No increased work of breathing, no retractions or nasal flaring. Abdomen/GI: Soft, non-tender, with normal bowel sounds. No distension or tympany. No guarding or rebound. No evidence of tenderness throughout. Back: No spinal tenderness. No costovertebral tenderness. Full range of motion. Neuro: Awake and alert, GCS 15, oriented to person, place, time, and situation. Cranial nerves II-XII grossly intact. Motor strength 5/5 in all extremities. Sensory grossly intact. Cerebellar exam normal. Normal gait. Psych: Awake, alert, with orientation to person, place and time. Behavior, mood, and affect are within normal limits. 19:44 Constitutional: The patient appears in no acute distress, alert, awake, uncomfortable. 19:44 Musculoskeletal/extremity: Extremities: noted in the right foot: erythema, pain, swelling, tenderness, partial amputation, ulcer plantar aspect, ROM: intact in all extremities, Circulation is intact in all extremities. Sensation intact. Compartment Syndrome exam of affected extremity: is normal. no numbness, no tingling, no sensation deficit, no palor, no weak pulses, Joints: All joints appear normal with full range of motion. Weight bearing: can bear weight with assistance only, uses walker, Tendon exam: specific tendon testing normal through active and passive range of motion 19:44 Skin: cellulitis, that is moderate, on the right foot. Vital Signs: 19:40 BP 131 / 69; Pulse 76; Resp 18; Temp 98.9(O); Pulse Ox 100% on R/A; Weight 126.1 kg; ld1 Height 5 ft. 10 in. (177.80 cm); Pain 7/10; 21:13 BP 109 / 61; Pulse 74; Resp 14; Pulse Ox 94% on R/A; ld1 19:40 Body Mass Index 39.89 (126.10 kg, 177.80 cm) ld1 MDM: 21:50 Differential diagnosis: abscess, allergic reaction, cellulitis, insect bite. Data [facility] reviewed: vital signs, nurses notes, lab test result(s), CBC, electrolytes, radiologic studies, plain films. Data interpreted: Pulse oximetry: on room air is 96 %. Interpretation: normal. Counseling: I had a detailed discussion with the patient and/or guardian regarding: the historical points, exam findings, and any diagnostic results supporting the discharge/admit diagnosis, lab results, radiology results, the need for further work-up and treatment in the hospital. Response to treatment: the patient's symptoms have mildly improved after treatment. 21:52 Patient medically screened. [facility] 02/02 19:41 Order name: CBC with Diff [facility] 02/02 19:41 Order name: Basic Metabolic Panel; Complete Time: 21:21 [facility] 02/02 19:41 Order name: Protime (+inr); Complete Time: 20:44 [facility] 02/02 19:41 Order name: Ptt, Activated; Complete Time: 20:44 [facility] 02/02 19:41 Order name: LFT's; Complete Time: 21:21 [facility] 02/02 19:41 Order name: Blood Culture Adult (2) [facility] 02/02 19:41 Order name: Lactate; Complete Time: 21:21 [facility] 02/02 19:56 Order name: ESR; Complete Time: 21:21 la1 02/02 19:56 Order name: CDIFF la 02/02 19:56 Order name: Stool Culture [facility] 02/02 19:56 Order name: COVID-19 SARS RT PCR (Document "Date of Onset" if Symptomatic); Complete la1 Time: 21:21 02/02 21:14 Order name: Urine Dipstick-Ancillary; Complete Time: 21:21 EDAL 02/02 21:44 Order name: CBC Smear Scan [facility] 02/02 21:44 Order name: Urine --Ancillary (enter results) 02/02 19:41 Order name: Urine Dipstick-Ancillary (obtain specimen); Complete Time: 21:13 [facility] 02/02 19:41 Order name: Foot Right 3 View XRAY; Complete Time: 20:44 [facility] 02/02 21:56 Order name: Urine --Ancillary EDMS Administered Medications: 20:31 Drug: morphine 4 mg Route: IVP; Infused Over: 4 mins; Site: left antecubital; ld1 20:31 Drug: Zofran (Ondansetron) 4 mg Route: IVP; Site: left antecubital; ld1 20:32 Drug: NS 0.9% 1000 ml Route: IV; Rate: 1000 ml; Site: left antecubital; ld1 20:32 Drug: LevaQUIN (levofloxacin) 500 mg Volume: 100 ml; Route: IVPB; Infused Over: 60 ld1 mins; Site: left antecubital; 21:28 Drug: vancoMYCIN 1 grams Route: IVPB; Infused Over: 2 hrs; Site: left antecubital; ld1 Disposition Summary: 02/02/22 21:52 Hospitalization Ordered Hospitalization Status: Inpatient Admission [facility] Provider: Emil Maynard Warren Location: Telemetry/MedSur (Inpatient) [facility] Condition: Stable [facility] Problem: an acute exacerbation [facility] Symptoms: have improved [facility] Bed/Room Type: Standard [facility] Room Assignment: 228(02/02/22 21:55) Diagnosis - Diabetic Foot Infection, Cellulitis [facility] Forms: - Medication Reconciliation Form [facility] - SBAR form [facility] Signatures: Dispatcher [employer] EDAL Alexandre Hook FNP-C DAIRY POWDER MIXER OPERATOR-Cla1 Neva Blake RN RN Wily Ford MD MD 7 Cyndie Navarrete RN RN ld1 Corrections: (The following items were deleted from the chart) : 21:52 7
--- NOTE | 2022-02-02 21:53 | ER ---
Nurse's Notes [facility] Name: Alessandro Taylor Age: 56 yrs Sex: Male : 1965 Arrival Date: 02/02/2022 Time: 19:02 Bed 16 Private MD: Diagnosis: Diabetic Foot Infection, Cellulitis Presentation: 02/02 19:40 Chief complaint: Patient states: Right foot wound - Pt reports Dr. Velazquez performed ld1 surgery on right foot 02/01/22. Redness and irritation to right foot. Coronavirus screen: At this time, the client does not indicate any symptoms associated with coronavirus-19. Ebola Screen: No symptoms or risks identified at this time. Risk Assessment: Do you want to hurt yourself or someone else? Patient reports no desire to harm self or others. Onset of symptoms was February 02, 2022. 19:40 Method Of Arrival: Ambulatory ld1 19:40 Acuity: ROBERT 3 ld1 19:40 Initial Sepsis Screen: Does the patient meet any 2 criteria? No. Patient's initial ld1 sepsis screen is negative. Does the patient have a suspected source of infection? Yes: Skin breakdown/wound. Triage Assessment: 19:42 General: Appears in no apparent distress. comfortable, Behavior is calm, cooperative, ld1 appropriate for age. Pain: Complains of pain in right foot Pain does not radiate. Pain currently is 7 out of 10 on a pain scale. Quality of pain is described as throbbing, Pain began 1 day ago. Is continuous. EENT: No signs and/or symptoms were reported regarding the EENT system. Neuro: Level of Consciousness is awake, alert, obeys commands, Oriented to person, place, time, situation. Cardiovascular: Capillary refill < 3 seconds Patient's skin is warm and dry. Respiratory: Airway is patent Respiratory effort is even, unlabored. GI: Abdomen is round non-distended, Reports diarrhea. : No signs and/or symptoms were reported regarding the genitourinary system. Derm: Wound noted heel of right foot Reports pain that is 7 out of 10 on a pain scale. Musculoskeletal: No signs and/or symptoms reported regarding the musculoskeletal system. 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 - Social history:: Smoking status: Patient/guardian denies using tobacco, the patient reports quitting approximately 1 years ago, Patient uses alcohol, on a daily basis. Screenin:44 Abuse screen: Denies threats or abuse. Denies injuries from another. Nutritional ld1 screening: No deficits noted. Tuberculosis screening: No symptoms or risk factors identified. Fall Risk None identified. Assessment: 19:44 Reassessment: See triage assessment. ld1 Vital Signs: 19:40 BP 131 / 69; Pulse 76; Resp 18; Temp 98.9(O); Pulse Ox 100% on R/A; Weight 126.1 kg; ld1 Height 5 ft. 10 in. (177.80 cm); Pain 7/10; 21:13 BP 109 / 61; Pulse 74; Resp 14; Pulse Ox 94% on R/A; ld1 19:40 Body Mass Index 39.89 (126.10 kg, 177.80 cm) ld1 ED Course: 19:02 Patient arrived in ED. bp1 19:30 Wily Ford MD is Attending Physician. mh7 19:32 Cyndie Navarrete, LUIS FELIPE is Primary Nurse. ld1 19:42 Triage completed. ld1 19:42 Arm band placed on right wrist. ld1 19:44 Patient has correct armband on for positive identification. Placed in gown. Bed in low ld1 position. Call light in reach. Side rails up X2. cafeteria monitor on. Pulse ox on. NIBP on. Door closed. Noise minimized. Warm blanket given. 19:44 No provider procedures requiring assistance completed. ld1 20:10 Foot Right 3 View XRAY In Process Unspecified. EDMS 20:16 COVID-19 SARS RT PCR (Document "Date of Onset" if Symptomatic) Sent. ld1 20:32 Inserted saline lock: 20 gauge in left antecubital area, using aseptic technique. Blood ld1 collected. 21:51 Emil Maynard MD is Hospitalizing Provider. 7 22:05 Patient admitted, IV remains in place. ld1 Administered Medications: 20:31 Drug: morphine 4 mg Route: IVP; Infused Over: 4 mins; Site: left antecubital; ld1 20:31 Drug: Zofran (Ondansetron) 4 mg Route: IVP; Site: left antecubital; ld1 20:32 Drug: NS 0.9% 1000 ml Route: IV; Rate: 1000 ml; Site: left antecubital; ld1 20:32 Drug: LevaQUIN (levofloxacin) 500 mg Volume: 100 ml; Route: IVPB; Infused Over: 60 ld1 mins; Site: left antecubital; 21:28 Drug: vancoMYCIN 1 grams Route: IVPB; Infused Over: 2 hrs; Site: left antecubital; ld1 Medication: 19:44 VIS not applicable for this client. ld1 Outcome: 21:52 Decision to Hospitalize by Provider. [facility] 22:05 Admitted to Med/surg accompanied by tech, via wheelchair, room 228. ld1 22:05 Condition: stable 22:05 Instructed on the need for admit. 22:27 Patient left the ED. bb Signatures: Dispatcher [employer] Brittaney Fu, RN RN Grecia Ashby Maurice, MD MD [facility] Cyndie Navarrete RN RN ld1
[2022-02-02] MEDS: ATORVASTATIN 40 MG TAB PO SCH (22:40)
[2022-02-02] MEDS ORDERED: VANCOMYCIN 1 GM in NA CHLORIDE 0.9% 250 ML IVPB SCH (22:40)
[2022-02-02] MEDS ORDERED: ONDANSETRON 4 MG/2 ML VIAL IV PRN (22:40)
[2022-02-02] MEDS ORDERED: Levofloxacin500mg IV 500 MG/100 ML BAG IV SCH (22:40)
[2022-02-02] MEDS ORDERED: ACETAMINOPHEN 500 MG TAB PO PRN (22:40)
[2022-02-02] MEDS ORDERED: TRAMADOL HCL 50 MG TAB PO PRN (22:40)
[2022-02-02] MEDS ORDERED: MORPHINE 2 MG/ML SYR IV PRN (22:40)
[2022-02-02] MEDS: INSULIN -REGULAR HUMAN 50 UNIT/0.5 ML ML SQ SCH (22:40)
--- NOTE | 2022-02-02 22:58 | P.HP ---
Certification for Inpatient Patient admitted to: Inpatient With expected LOS: >2 Midnights Patient will require the following post-hospital care: None Practitioner: I am a practitioner with admitting privileges, knowledge of patient current condition, hospital course, and medical plan of care. Services: Services provided to patient in accordance with Admission requirements found in Title 42 Section 412.3 of the Code of Federal Regulations Patient History Date of Service: 02/02/22 Reason for admission: Diabetic foot wound History of Present Illness: 56-year-old male history of diabetes mellitus type [id number], PAD, hypertension, hyperlipidemia presents to the emergency department for diabetic foot wound. Patient is currently under the care of general surgeon Dr. Velazquez, patient and family noticed worsening in wound to his right heel this past Saturday had a incision/drainage/debridement with Dr. Velazquez earlier this week family noticed worsening pain and surrounding cellulitis referred to the emergency department for further evaluation. He was also seen in the emergency department on Saturday for diarrhea and fever, fever and diarrhea that started on Saturday T-max 103.2, he reports having copious amounts of watery diarrhea from Saturday until today, diarrhea has improved with 3 episodes today less watery. He was prescribed Cipro/Flagyl which she has been taking ever since his ED visit on Saturday. Fever free today last fever was 02/01/2022. He was evaluated here in the emergency department his labs overall are unremarkable x-ray of right foot was negative for any abnormal gas patterns or signs of osteomyelitis. Patient was started on broad-spectrum antibiotics in the emergency department blood cultures were obtained C. difficile and stool culture have been ordered. We will need to admit for further evaluation and management. Allergies hydrocodone [From Vicodin] Allergy (Verified 01/29/19 10:07) Unknown Home Medications: Dapagliflozin Propanediol [Farxiga] 10 mg PO DAILY 10/19/18 Metformin ER [Glucophage ER*] 1,000 mg PO BID 10/19/18 Omeprazole 20 mg PO BID 10/19/18 Pregabalin [Lyrica] 100 mg PO BID 10/19/18 Simvastatin 40 mg PO BEDTIME 10/19/18 atenoloL [Atenolol] 100 mg PO [id number] 10/19/18 glipiZIDE [Glipizide] 5 mg PO BID 10/19/18 Semaglutide [Ozempic] 0.25 mg SQ EVERY 7TH DAY 01/29/19 Tylenol #4 1 tab PO Q6HP PRN 02/06/19 traMADol HCL [Ultram*] 50 mg PO Q6H tab 02/06/19 - Past Medical/Surgical History Diabetic: Yes -: Diabetes mellitus type 2, non-insulin dependent -: Hyperlipidemia -: Neuropathy -: Obstructive sleep apnea -: Asthma -: Osteoarthritis -: HTN -: PAD -: Left foot fx repair (pin in place) -: Left knee sx x7 -: tonsillectomy -: Right 1st and 2nd toe amputations -: hernia repair Psychosocial/ Personal History: Patient is - Family History Father -: Hypertension, Diabetes Sister -: Diabetes Mother -: Diabetes, Stroke Notes: breast - Social History Alcohol use: Yes CD- Drugs: No Caffeine use: Yes Place of Residence: Home Review of Systems 10-point ROS is otherwise unremarkable General: Fever Gastrointestinal: Diarrhea Musculoskeletal: Foot Pain Physical Examination - Vital Signs Temperature: 98.9 F Blood Pressure: 131/69 Pulse: 76 Respirations: 18 - Physical Exam General: Alert, In no apparent distress, Oriented x3, Obese HEENT: Atraumatic, PERRLA, Mucous membr. moist/pink, EOMI, Sclerae nonicteric Neck: Supple, 2+ carotid pulse no bruit, No LAD, Without JVD or thyroid abnormality Respiratory: Clear to auscultation bilaterally, Normal air movement Cardiovascular: No edema, Regular rate/rhythm, Normal S1 S2 Capillary refill: <2 Seconds Gastrointestinal: Normal bowel sounds, No tenderness, No masses, No rebound, No guarding Musculoskeletal: Other (Open wound to the bottom of the right foot in the heel area with surrounding erythema/cellulitis ) Integumentary: No rashes Neurological: Normal gait, Normal speech, Normal strength at 5/5 x4 extr, Normal tone, Normal affect Assessment and Plan - Plan Assessment: Diabetic foot wound with surrounding cellulitis Colitis/diarrhea Diabetes mellitus type [id number] Hypertension PAD Hyperlipidemia Plan: Diabetic foot wound with surrounding cellulitis: Continue broad-spectrum antibiotics vancomycin/Levaquin, general surgery consult in place, wound healing consult in place, infectious disease consult in place given likely need for prolonged IV ABX as well as recent high fevers and treatment for colitis/possible infectious diarrhea. Patient likely require MRI to rule out osteomyelitis, this would not be available until Saturday. Colitis/diarrhea: Symptoms from the standpoint are improving patient reports watery diarrhea and high fevers which began on 01/27/2022, patient was started on oral Cipro/Flagyl on 01/29/2022, last fever was 02/01/2022 diarrhea is improving had 3 episodes today C. difficile and stool cultures have been ordered. He has no abdominal pain or tenderness. His previous CT showed Colitis involving the ascending and proximal transverse colon. Continue antibiotics vancomycin/Levaquin await blood/stool culture/C. difficile. Diabetes mellitus type [id number]: ACH S Accu-Chek, sliding scale insulin, continue home medications when appropriate. Hypertension: Continue home medications PAD: Continue home medications Hyperlipidemia: Continue home medications DVT PPX: Lovenox Code status: Full Discharge Plan: Home Plan to discharge in: 72 Hours - Advance Directives Does patient have a Living Will: No Does patient have a Durable POA for Healthcare: No - Code Status/Comfort Care Code Status Assessed: Yes (Full code) Critical Care: No Time Spent Managing Pts Care (In Minutes): 70
[2022-02-02] MEDS ORDERED: VANCOMYCIN 1 GM in NA CHLORIDE 0.9% 250 ML IVPB ONE (23:00)
[2022-02-02 23:08] VITALS: BMI 39.9
[2022-02-02] MEDS: NA CHLORIDE 0.9% 1,000 ML IV SCH (23:48)
[2022-02-03] MEDS ORDERED: MORPHINE 2 MG/ML SYR IV ONE (02:17)
[2022-02-03 06:30] LABS: Absolute Lymphocytes (CBC) 1.1 K/uL (0.7-4.9); Lymphocytes % 27.4 % (15.3-44.8); MCV 73.9 fL (80-100); MPV 8.7 fL (7.6-11.3); RBC Red Blood Cell Count 4.47 M/uL (4.33-5.43)
[2022-02-03] MEDS: PANTOPRAZOLE 40MG TABLET PO SCH (06:30)
[2022-02-03 06:56] LABS: Albumin 2.8 g/dL (3.4-5.0); Bilirubin Total 0.2 mg/dL (0.2-1.0); Magnesium 1.7 mg/dL (1.8-2.4); Potassium 3.9 mmol/L (3.5-5.1); Protein, Total 5.9 g/dL (6.4-8.2)
--- NOTE | 2022-02-03 06:58 | P.PN ---
Date of Service: 02/03/22 Subjective: erythema improved, pain improved with medication no new symptoms ROS: 10 point ROS as noted above, otherwise negative Physical exam GEN: Alert, oriented, NAD HEENT: Normal conjunctiva, sclera anicteric CV: Regular rate and rhythm, no edema Pulm: Nonlabored respirations on room air ABD: Soft, nontender, nondistended Integumentary: small plantar foot wound with surrounding erythema up to ankle Neuro: Normal speech, normal affect Problem List Diabetic foot wound with surrounding cellulitis Colitis/diarrhea Diabetes mellitus type [id number] Hypertension PAD Hyperlipidemia Continue empiric IV antibiotics Patient failed outpatient therapy Will most likely need IV antibiotics, patient reports he is very difficult IV stick PICC line ordered General surgery following, infectious disease consulted MRI ordered to rule out osteomyelitis, patient has been dealing with this wound for a long time, now recently getting infected again colitis / diarrhea improving, formed stool today, no abd pain/tenderness continue insulin sliding scale, hold home PO meds for now resume chronic home meds DVT PPX: Lovenox Code status: Full Dispo: home, likely saturday, possibly saturday needs MRI saturday Time Spent Managing Pts Care (In Minutes): 35
[2022-02-03] MEDS: INSULIN -REGULAR HUMAN 50 UNIT/0.5 ML ML SQ SCH ×4 (07:30→21:00)
[2022-02-03] MEDS ORDERED: POTASSIUM CL SA 10 MEQ TAB PO ONE (09:00)
[2022-02-03] MEDS: MAGNESIUM SULFATE 1 gm IVPB 1 GM/100 ML BAG IV ONE ×2 (09:45→09:53)
[2022-02-03] MEDS: MORPHINE 2 MG/ML SYR IV PRN ×3 (09:53→22:01)
[2022-02-03] MEDS: NA CHLORIDE 0.9% 1,000 ML IV SCH ×2 (09:54→18:40)
--- NOTE | 2022-02-03 10:46 | P.CNS ---
Date of Consult: 02/03/22 Reason for consult: Infected right foot wound History of present illness: Patient is a 56-year-old gentleman with multiple medical problems who I saw in the wound healing center on . Patient had been seen in the ER on Saturday was diagnosed with colitis and was treated with Cipro and Flagyl. Patient does have a chronic wound on his right plantar foot which was being managed as an outpatient by Dr. Michael. However, on patient had developed an abscess and came to the wound healing center. Incision, drainage and debridement was performed. Cultures were done. They are growing normal skin seth. I was contacted by the patient yesterday because of increasing redness and pain in the foot. I advised the patient to go to the ER and be admitted for cellulitis which has failed outpatient therapy. Patient denies sore throat, runny nose, cough, headaches, dizziness, chest pain, fever or chills. Patient denies purulent discharge from the foot. Review of systems: Otherwise unremarkable Past medical history: Type 2 diabetes, hypertension, peripheral arterial disease Past surgical history: Left foot and knee surgery, right forefoot amputation Allergies: Hydrocodone Social history: Patient does not smoke, alcohol use is occasional Family history: Diabetes and stroke Vital signs: Stable, afebrile Physical exam: Awake alert oriented x4 Head and neck exam: No masses Chest: Clear Heart: S1-S2 Abdomen: Soft, nondistended, positive bowel sounds, nontender Extremity: Diminished dorsalis pedis and posterior tibial pulses on the right side. Approximately a 2 x 1 cm open wound on the plantar aspect of the right foot with surrounding erythema, edema and warmth extending towards the medial foot. No purulent discharge. Neuro: Nonfocal Diagnostic data: X-ray of the right foot does not reveal any evidence of osteo- White count was normal, sed rate was 32, lactic acid was 1.2 Assessment: Infected right foot wound with cellulitis and recent history of colitis Plan/recommendation: Continue antibiotics and wound care as ordered. If needed, MRI will be ordered on Saturday. As patient has failed outpatient oral antibiotic therapy, patient may require IV antibiotics for 10 to 14 days at least. Therefore, we will go ahead and get a PICC line placed. I will go ahead and get a arterial Doppler to evaluate patient's circulatory status as well. CC:
[2022-02-03] MEDS: VANCOMYCIN 2 GM in NA CHLORIDE 0.9% 500 ML IVPB SCH (12:14)
[2022-02-03] MEDS: ENOXAPARIN 40 MG/0.4 ML SQ SCH (12:15)
[2022-02-03] MEDS: COLLAGENASE 30 GM OINTMENT TOP SCH (12:15)
--- NOTE | 2022-02-03 17:45 | RAD REPORT ---
EXAM DESCRIPTION: US - Lower Extremity Arterial Bilat - 02/03/2022 4:47 pm CLINICAL HISTORY: Leg pain COMPARISON: None FINDINGS: The common femoral, superficial femoral and popliteal arteries bilaterally demonstrate tri phasic waveforms The posterior tibial and dorsalis pedis arteries demonstrate monophasic waveforms on the right side. The vessels are diminutive and demonstrates slow flow. On the left side, biphasic waveforms are prese nt. IMPRESSION: Severe peripheral vascular disease involving the right dorsalis pedis and posterior tibi al arteries. The left lower extremity vessels are patent without flow limiting stenosis.
[2022-02-03] MEDS: Levofloxacin500mg IV 500 MG/100 ML BAG IV SCH (17:49)
[2022-02-03] MEDS ORDERED: HOME MED 1 EA UNK (Pregabalin [Lyrica] 100 MG Capsule) PO SCH (21:00)
[2022-02-03] MEDS: PREGABALIN 150 MG CAP PO SCH (21:00)
[2022-02-03] MEDS: ATORVASTATIN 40 MG TAB PO SCH (21:00)
[2022-02-04] MEDS: VANCOMYCIN 2 GM in NA CHLORIDE 0.9% 500 ML IVPB SCH (00:58)
[2022-02-04] MEDS: MORPHINE 2 MG/ML SYR IV PRN ×4 (01:57→22:40)
[2022-02-04 06:08] LABS: Absolute Lymphocytes (CBC) 1.3 K/uL (0.7-4.9); Lymphocytes % 27.4 % (15.3-44.8); MCV 74.6 fL (80-100); MPV 8.2 fL (7.6-11.3); RBC Red Blood Cell Count 4.42 M/uL (4.33-5.43)
[2022-02-04] MEDS: PANTOPRAZOLE 40MG TABLET PO SCH ×2 (06:30→16:30)
[2022-02-04] MEDS: NA CHLORIDE 0.9% 1,000 ML IV SCH ×3 (06:33→22:40)
--- NOTE | 2022-02-04 06:40 | P.PN ---
Date of Service: 02/04/22 Subjective: PICC placed overnight erythema improving, pain improving ROS: 10 point ROS as noted above, otherwise negative Physical exam GEN: Alert, oriented, NAD CV: Regular rate and rhythm, no edema Pulm: Nonlabored respirations on room air ABD: Soft, nontender, nondistended Integumentary: small plantar foot wound with surrounding erythema Neuro: Normal speech, normal affect Problem List Diabetic foot wound with surrounding cellulitis Colitis/diarrhea Diabetes mellitus type [id number] Hypertension PAD Hyperlipidemia Continue empiric IV antibiotics Patient failed outpatient therapy with doxy will need IV antibiotic therapy PICC line ordered General surgery following, infectious disease consulted MRI ordered to rule out osteomyelitis, patient has been dealing with this wound for a long time, now recently getting infected again culture obtained in surgeon's office just resulted: Enterococcus sensitive to penicillin, vancomycin, Levaquin, ampicillin, ciprofloxacin Resistant to Bactrim, tetracycline, Ancef, clindamycin colitis / diarrhea improving, slightly formed yesterday, loose today; less frequent, no abd pain/tenderness continue insulin sliding scale, hold home PO meds for now resume chronic home meds DVT PPX: Lovenox Code status: Full Dispo: home, likely saturday, possibly saturday pending MRI, antibiotic Time Spent Managing Pts Care (In Minutes): 35
[2022-02-04 06:56] LABS: Blood Morphology Comment NOTED (NOT SEEN); Hypochromasia 1+; Platelet Estimate ADEQ; Platelets, Giant FEW
[2022-02-04 07:01] LABS: Magnesium 1.9 mg/dL (1.8-2.4)
[2022-02-04] MEDS ORDERED: OMEPRAZOLE 20 MG PO SCH (07:30)
[2022-02-04] MEDS: INSULIN -REGULAR HUMAN 50 UNIT/0.5 ML ML SQ SCH ×4 (07:30→21:00)
[2022-02-04] MEDS: TIOTROPIUM BR IH SCH (09:00)
[2022-02-04] MEDS: [UNRECOGNIZED DRUG - OTHER] IH SCH (09:00)
[2022-02-04 09:01] LABS: Ferritin 80.5 ng/mL (26-388)
[2022-02-04] MEDS: ENOXAPARIN 40 MG/0.4 ML SQ SCH (10:05)
[2022-02-04] MEDS: PREGABALIN 150 MG CAP PO SCH ×2 (10:05→21:00)
[2022-02-04] MEDS: CLOPIDOGREL 75 MG TABLET PO SCH (10:05)
[2022-02-04] MEDS: ASPIRIN EC 81 MG TAB PO SCH (10:05)
[2022-02-04] MEDS: COLLAGENASE 30 GM OINTMENT TOP SCH (10:06)
--- NOTE | 2022-02-04 10:12 | P.PN ---
Date of Service: 02/04/22 Subjective: Patient feels a little better. Patient had a PICC line placed. Objective: Vital signs stable afebrile, arterial Doppler reviewedpatient has significant disease in his posterior tibial and dorsalis pedis Physical exam: The erythema has improved on his right medial foot as has edema. Assessment: Infected right foot wound with cellulitis, rule out osteomyelitis, in a patient with severe peripheral arterial disease. Plan: We will get an MRI of the right foot tomorrow to rule out osteomyelitis and based on that we will determine the duration of IV antibiotics that the patient will require. Wound care as ordered. CC:
--- NOTE | 2022-02-04 11:51 | CON ---
History Of Present Illness: This is a 56-year-old male, known to me from previous admissions. The p young is here with right leg cellulitis. He has significant past medical history of diabetes mellit us type 2, peripheral arterial disease, hypertension, hyperlipidemia, transmetatarsal amputation of r ight foot, coming in with ulceration of the right foot below first metatarsal area. The patient was debrided in the [facility]. The patient developed high fever of 103 and diarrhea which has robbins bsided. The patient has been on antibiotic and was given oral antibiotic to take initially. Past Medical History: Diabetes mellitus, hyperlipidemia, neuropathy, obstructive sleep apnea, asthma , osteoarthritis, hypertension, peripheral arterial disease, left foot fracture repair, left knee katerina elliott x7, tonsillectomy, right foot TMA, hernia repairs. Social History: Alcohol yes. Tobacco negative. Family History: Diabetes mellitus, hypertension. Medications: Include Levaquin and vancomycin. See MAR for other medications. Allergies: HYDROCODONE. Review of Systems: A 10-point review was performed. Physical Examination: General: This is a 56-year-old male, lying in bed, not in any acute cardiopulmonary distress. Vital Signs: Temperature 97, pulse 76, respirations 20, blood pressure 117/57. HEENT: Unremarkable. Neck: Supple: Basal crackles. Heart: S1, S2. Regular. Abdomen: Soft, nontender. Bowel sounds present. Extremities: No edema. Right foot with ulceration noted with erythematous changes to the foot regio n below ankle. Laboratory Data: Shows WBC 4.8, hemoglobin 10.6, platelets are 208. Chemistry shows sodium 140, pot assium 4, chloride 110, bicarb 27, BUN is 14, creatinine 0.5, glucose is 106, albumin is 2.8. X-ray of the foot shows the patient has soft tissue edema. No gas pattern was noted. Assessment And Plan: A 56-year-old male with longstanding history of diabetes mellitus, diabetic jolanta ropathy, and peripheral arterial disease, anemia of chronic disease, moderate protein-calorie malnour ishment, coming in with cellulitis of right foot with diabetic foot ulcer, status post debridement, c urrently on vancomycin and Levaquin. Cultures are pending and negative blood for 24 hours, we will f ollow the patient closely. Continue MRI and ID consult. Depending on MRI results, we will most like ly continue antibiotic either 2 weeks for soft tissue infection or 6-week . Thank you Dr. Maynard for consult. LATRICE/MAYTE Voice ID: [id number] Report ID: [id number]
[2022-02-04] MEDS: VANCOMYCIN 1.75 GM in NA CHLORIDE 0.9% 500 ML IVPB SCH ×2 (12:36→23:28)
[2022-02-04] MEDS: Levofloxacin500mg IV 500 MG/100 ML BAG IV SCH (18:38)
[2022-02-04] MEDS: ATORVASTATIN 40 MG TAB PO SCH (21:00)
[2022-02-05] MEDS: NA CHLORIDE 0.9% 1,000 ML IV SCH ×3 (00:40→20:40)
[2022-02-05 04:50] LABS: Absolute Lymphocytes (CBC) 1.2 K/uL (0.7-4.9); Hematocrit 30.8 % (39.6-49.0); MCV 73.4 fL (80-100); MPV 8.2 fL (7.6-11.3); RBC Red Blood Cell Count 4.19 M/uL (4.33-5.43)
[2022-02-05 04:58] LABS: Magnesium 1.8 mg/dL (1.8-2.4); Potassium 3.6 mmol/L (3.5-5.1)
[2022-02-05] MEDS: MORPHINE 2 MG/ML SYR IV PRN ×4 (04:58→21:48)
--- NOTE | 2022-02-05 06:51 | P.PN ---
Date of Service: 02/05/22 Subjective: pain and erythema improving ROS: 10 point ROS as noted above, otherwise negative Physical exam GEN: Alert, oriented, NAD CV: Regular rate and rhythm, no edema Pulm: Nonlabored respirations on room air ABD: Soft, nontender, nondistended Integumentary: small plantar foot wound with surrounding erythema Neuro: Normal speech, normal affect Problem List Diabetic foot wound with surrounding cellulitis Colitis/diarrhea Diabetes mellitus type [id number] Hypertension PAD Hyperlipidemia Continue empiric IV antibiotics Patient failed outpatient therapy with doxy will need IV antibiotic therapy PICC line placed MRI negative for osteo culture obtained in surgeon's office just resulted: Enterococcus sensitive to penicillin, vancomycin, Levaquin, ampicillin, ciprofloxacin Resistant to Bactrim, tetracycline, Ancef, clindamycin discussed with general surgery, recommend vanc x 2 weeks patient with hydrocodone allergy, reports tolerates oxycodone fine colitis / diarrhea improving, slightly formed yesterday, loose today; less frequent, no abd pain/tenderness continue insulin sliding scale, hold home PO meds for now resume chronic home meds DVT PPX: Lovenox Code status: Full Dispo: home health, PICC, tomorrow once set up Time Spent Managing Pts Care (In Minutes): 35
[2022-02-05] MEDS: PANTOPRAZOLE 40MG TABLET PO SCH ×2 (07:30→16:30)
[2022-02-05] MEDS: INSULIN -REGULAR HUMAN 50 UNIT/0.5 ML ML SQ SCH ×4 (07:30→21:00)
[2022-02-05] MEDS ORDERED: MAGNESIUM SULFATE 1 gm IVPB 1 GM/100 ML BAG IV ONE (07:30)
[2022-02-05] MEDS: ENOXAPARIN 40 MG/0.4 ML SQ SCH (08:56)
[2022-02-05] MEDS ORDERED: POTASSIUM CL SA 10 MEQ TAB PO ONE (09:00)
[2022-02-05] MEDS: PREGABALIN 150 MG CAP PO SCH ×2 (09:00→21:00)
[2022-02-05] MEDS: ASPIRIN EC 81 MG TAB PO SCH (09:00)
[2022-02-05] MEDS: CLOPIDOGREL 75 MG TABLET PO SCH (09:00)
[2022-02-05] MEDS: [UNRECOGNIZED DRUG - OTHER] IH SCH (09:00)
[2022-02-05] MEDS: COLLAGENASE 30 GM OINTMENT TOP SCH (09:00)
[2022-02-05] MEDS: TIOTROPIUM BR IH SCH (09:00)
--- NOTE | 2022-02-05 09:20 | RAD REPORT ---
EXAM DESCRIPTION: MRIFoot Right Wo Cont02/05/2022 8:06 am CLINICAL HISTORY: Right foot pain and swelling COMPARISON: February 02, 2022 x-ray TECHNIQUE: Axial, sagittal and coronal magnetic resonance imaging of the right foot was obtained. FINDINGS: Resection involves the phalanges. Soft tissue ulceration medial forefoot Subchondral cyst within the talar dome Edema within the subcutaneous tissues. No significant abnormal signal within the bones IMPRESSION: No evidence of osteomyelitis
[2022-02-05 11:47] LABS: C.diff Antigen/Toxin Ag neg : Tox neg (NEG : NEG)
--- NOTE | 2022-02-05 14:11 | RAD REPORT ---
EXAM DESCRIPTION: RAD - Chest Single View - 02/04/2022 1:44 am CLINICAL HISTORY: 56 years Male, S/P PICC insertion COMPARISON: Chest x-ray report from 01/29/2019. The image was not available for review. TECHNIQUE: Single portable x-ray view of the chest performed on 02/04/2022 at 1:37 AM FINDINGS: The lungs are well expanded and are clear. There is no evidence of a pneumothorax. The car diac silhouette is normal in size and configuration. The mediastinal contours are normal. No acute os seous abnormality is identified. There are a couple of old right-sided rib fractures. No acute soft t issue abnormalities are seen.Lines and tubes: The left upper extremity PICC line catheter tip termi nates in the region of the superior vena cava.Free air: None IMPRESSION: No evidence of acute intrathoracic disease. The tip of the left upper extremity PICC josseline e catheter terminates in the region of the superior vena cava. Electronically signed by: Kaity Tam DO 02/04/2022 3:38 AM CDT Due to temporary technical issues with the PACS/Fluency reporting system, reports are being signed by the in house radiologist without review as a courtesy to ensure prompt reporting. The interpreting r adiologist is fully responsible for the content of the report.
[2022-02-05] MEDS: VANCOMYCIN 1.75 GM in NA CHLORIDE 0.9% 500 ML IVPB SCH (14:38)
--- NOTE | 2022-02-05 15:21 | P.PN ---
Date of Service: 02/05/22 Subjective: Patient feels a little better. Patient had a PICC line placed. Objective: Vital signs stable afebrile, MRI does not show any evidence of osteomyelitis Physical exam: The erythema has improved on his right medial foot as has edema. Assessment: Infected right foot wound with cellulitis refractory to outpatient therapy with oral antibiotics Plan: Based on the cultures done in the wound healing centerEnterococcus faecalis sensitive to vancomycin, 2 weeks of IV is recommended as well as wound care. Patient can follow-up with me in the wound healing center in my clinic. Based on the progress after 2 weeks of antibiotics, will decide whether patient needs further IV or oral antibiotics. Discharge planning is in progress. CC:
--- NOTE | 2022-02-05 17:45 | P.PN ---
Subjective Date of Service: 02/05/22 Chief Complaint: Diabetic foot wound Patient seen and examined at bedside, doing well with no acute complaints. Review of Systems 10-point ROS is otherwise unremarkable Physical Examination - Vital Signs Temperature: 97.3 F Blood Pressure: 121/66 Pulse: 70 Respirations: 16 Pulse Ox (%): 96 - Physical Exam General: Alert, In no apparent distress HEENT: Atraumatic Neck: Supple Cardiovascular: No edema, Normal pulses Capillary refill: <2 Seconds Gastrointestinal: Normal bowel sounds Integumentary: Other (Right foot diabetic ulcer) Assessment And Plan - Plan Antibiotics Vancomycin: 02/04current Levaquin: 02/05current Assessment/plan Right foot diabetic ulcer Continue current wound care MRI negative for osteomyelitis Recommend continuing IV vancomycin and Levaquin for 2 weeks duration Vancomycin trough goal of 12-17 Patient will need weekly labs including: CBC, CMP, vancomycin trough Diabetes Continue sliding scale insulin Anemia Continue to monitor H&H Plan of care discussed with Dr. Rivas Thank you for consultation
[2022-02-05] MEDS ORDERED: Levofloxacin 750mg IV 750 MG/150 ML BAG IV SCH (18:00)
[2022-02-05] MEDS: AMINO ACIDS/PROTEIN HYDROLYS 30 ML LIQUID.PKT PO SCH (21:00)
[2022-02-05] MEDS: ATORVASTATIN 40 MG TAB PO SCH (21:00)
[2022-02-05 22:52] VITALS: O2SAT 100
[2022-02-06] MEDS: VANCOMYCIN 1.75 GM in NA CHLORIDE 0.9% 500 ML IVPB SCH ×2 (00:23→12:24)
[2022-02-06] MEDS: OXYCODONE HCL 5 MG TAB PO PRN ×2 (03:48→12:23)
[2022-02-06 04:13] LABS: Magnesium 1.8 mg/dL (1.8-2.4); Potassium 3.9 mmol/L (3.5-5.1)
[2022-02-06] MEDS: PANTOPRAZOLE 40MG TABLET PO SCH ×2 (07:30→16:18)
[2022-02-06] MEDS: INSULIN -REGULAR HUMAN 50 UNIT/0.5 ML ML SQ SCH ×3 (07:30→16:02)
[2022-02-06] MEDS ORDERED: MAGNESIUM SULFATE 1 gm IVPB 1 GM/100 ML BAG IV ONE (08:00)
[2022-02-06] MEDS: AMINO ACIDS/PROTEIN HYDROLYS 30 ML LIQUID.PKT PO SCH (08:13)
[2022-02-06] MEDS: ASPIRIN EC 81 MG TAB PO SCH (08:15)
[2022-02-06] MEDS: CLOPIDOGREL 75 MG TABLET PO SCH (08:16)
[2022-02-06] MEDS: PREGABALIN 150 MG CAP PO SCH (08:16)
[2022-02-06] MEDS: [UNRECOGNIZED DRUG - OTHER] IH SCH (08:22)
[2022-02-06] MEDS: TIOTROPIUM BR IH SCH (08:22)
[2022-02-06] MEDS: ENOXAPARIN 40 MG/0.4 ML SQ SCH (08:51)
[2022-02-06] MEDS: COLLAGENASE 30 GM OINTMENT TOP SCH (08:52)
[2022-02-06] MEDS ORDERED: POTASSIUM CL SA 10 MEQ TAB PO ONE (09:00)
[2022-02-06] MEDS ORDERED: levoFLOXacin 750 MG TAB PO SCH (14:00)
--- NOTE | 2022-02-06 14:51 | P.PN ---
Date of Service: 02/06/22 Subjective: Patient feels a little better. Objective: Vital signs stable afebrile Physical exam: The erythema has improved on his right medial foot as has edema. Assessment: Infected right foot wound with cellulitis refractory to outpatient therapy with oral antibiotics Plan: Based on the cultures done in the wound healing centerEnterococcus faecalis sensitive to vancomycin, 2 weeks of IV is recommended as well as wound care. Patient can follow-up with me in the wound healing center in my clinic. Based on the progress after 2 weeks of antibiotics, will decide whether patient needs further IV or oral antibiotics. Discharge planning is in progress. CC:
--- NOTE | 2022-02-06 15:19 | P.DS ---
Admission Date: 02/02/22 Discharge Date: 02/06/22 Disposition: [facility] Discharge Condition: FAIR Reason for Admission: Diabetic foot wound Brief History of Present Illness: 56-year-old male history of diabetes mellitus type [id number], PAD, hypertension, hyperlipidemia presented to the emergency department for diabetic foot wound. Patient is currently under the care of general surgeon Dr. Velazquez. Patient and family noticed worsening in wound to his right heel. He had a incision/drainage/debridement with Dr. Velazquez earlier this week. Family noticed worsening pain and surrounding cellulitis. He was referred to the emergency department for further evaluation. He was also seen in the emergency department on Saturday for diarrhea and fever. He had fever up to103.2. He also reported having copious amounts of watery diarrhea. He was prescribed Cipro/Flagyl for the dirarrhea and fever. He was evaluated here in the emergency department and his labs overall were unremarkable. X-ray of right foot was negative for any abnormal gas patterns or signs of osteomyelitis. Patient was started on broad- spectrum antibiotics in the emergency department after blood cultures were obtained. C. difficile and stool culture ordered ordered and admitted for further management. Hospital Course: Diagnosis Diabetic foot wound with surrounding cellulitis Colitis/diarrhea Diabetes mellitus type [id number] Hypertension PAD Hyperlipidemia Patient admitted to the medical floor and started on empiric IV antibiotic. He failed outpatient therapy with doxycycline. Patient seen by general surgery-Dr. Velazquez who performed incision and drainage and debridement. Per report pus was drained from the wound. Deep tissue wound culture grew Enterococcus. Patient seen by infectious disease. MRI of the foot was negative for osteomyelitis. IV vancomycin and oral Levaquin recommended PICC line placed Patient slated for 2 weeks of outpatient IV antibiotics. Patient had diarrhea which improved during the hospital stay. Stool for C. difficile was negative. Outpatient IV vancomycin has been arranged. Patient is clinically stable for discharge. Vital Signs/Physical Exam: Temp Pulse Resp BP Pulse Ox 97.8 F 76 14 114/70 97 02/06/22 11:57 02/06/22 11:57 02/06/22 12:23 02/06/22 11:57 02/06/22 11:57 Laboratory Data at Discharge: WBC 4.4 K/uL (4.3-10.9) 02/05/22 04:20 Hgb 10.1 g/dL (13.6-17.9) L 02/05/22 04:20 Hct 30.8 % (39.6-49.0) L 02/05/22 04:20 Plt Count 205 K/uL (152-406) 02/05/22 04:20 PT 12.7 SECONDS (9.5-12.5) H 02/02/22 20:05 INR 1.15 02/02/22 20:05 APTT 30.1 SECONDS (24.3-36.9) 02/02/22 20:05 Sodium 143 mmol/L (136-145) 02/06/22 03:35 Potassium 3.9 mmol/L (3.5-5.1) 02/06/22 03:35 BUN 14 mg/dL (7-18) 02/06/22 03:35 Creatinine 0.55 mg/dL (0.55-1.3) 02/06/22 03:35 Glucose 97 mg/dL (74-106) 02/06/22 03:35 Magnesium 1.8 mg/dL (1.8-2.4) 02/06/22 03:35 Total Bilirubin 0.2 mg/dL (0.2-1.0) 02/03/22 05:49 AST 34 U/L (15-37) 02/03/22 05:49 ALT 31 U/L (12-78) 02/03/22 05:49 Alkaline Phosphatase 62 U/L (45-117) 02/03/22 05:49 Home Medications: Metformin ER [Glucophage ER*] 500 mg PO BID 10/19/18 Omeprazole 40 mg PO BID 10/19/18 Pregabalin [Lyrica] 150 mg PO BID 10/19/18 atenoloL [Atenolol] 100 mg PO [id number] 10/19/18 glipiZIDE [Glipizide] 10 mg PO BID 10/19/18 Tylenol #4 1 tab PO Q6HP PRN 02/06/19 Alpha Lipoic Acid 600 mg PO BID 02/03/22 Aspirin [Aspirin EC 81 MG] 81 mg PO DAILY 02/03/22 Atorvastatin Calcium [Lipitor] 40 mg PO BEDTIME 02/03/22 Benzonatate [Tessalon Perle*] 200 mg PO TID PRN 02/03/22 Clopidogrel Bisulfate [Plavix*] 75 mg PO DAILY 02/03/22 Empagliflozin [Jardiance] 25 mg PO DAILY 02/03/22 Mecobalamin [B12 Active] 2,500 mcg PO DAILY 02/03/22 Tadalafil [Cialis] 5 mg PO DAILY 02/03/22 Tiotropium Br/Olodaterol HCl [Stiolto Respimat Inhal [place]] 1 puff IH DAILY 02/03/22 traMADol HCL [Ultram*] 50 mg PO Q4HR PRN 02/03/22 Amino Acids/Protein Hydrolys [Prosource No Carb Liquid Pkt] 30 ml PO BID #60 packet 02/06/22 Oxycodone HCl [Oxyir (Oxycodone HCl Imr)*] 5 mg PO Q6H PRN #16 tab 02/06/22 levoFLOXacin [Levaquin*] 750 mg PO Q24H #10 tab 02/06/22 New Medications: levoFLOXacin [Levaquin*] 750 mg PO Q24H #10 tab Oxycodone HCl [Oxyir (Oxycodone HCl Imr)*] 5 mg PO Q6H PRN #16 tab PRN Reason: Pain Scale 5-7 (Moderate) Amino Acids/Protein Hydrolys [Prosource No Carb Liquid Pkt] 30 ml PO BID #60 packet Diet: ADA Activity: Ad christiano Followup: Justice Camacho MD [Primary Care Provider] - Gunnar Velazquez MD [ACTIVE - CAN ADMIT] - 1 Week Time spent managing pt's care (in minutes): 38
--- NOTE | 2022-02-06 15:40 | P.PN ---
Subjective Date of Service: 02/06/22 Chief Complaint: Diabetic foot wound Patient seen and examined at bedside, plan for DC today. Vancomycin trough stable. Review of Systems 10-point ROS is otherwise unremarkable Physical Examination - Vital Signs Temperature: 97.8 F Blood Pressure: 114/70 Pulse: 76 Respirations: 14 Pulse Ox (%): 97 - Studies Laboratory Last Values C. difficile Ag & Toxin Ag neg : tox neg (NEG : NEG) 02/02/22 08:09 Assessment And Plan - Plan Antibiotics Vancomycin: 02/04current Levaquin: 02/05current Assessment/plan Right foot diabetic ulcer Continue current wound care -wound culture report from 02/01 grew Enterococcus faealis MRI negative for osteomyelitis Recommend continuing IV vancomycin and Levaquin for 2 weeks duration Vancomycin trough goal of 12-17 Patient will need weekly labs including: CBC, CMP, vancomycin trough Diabetes Continue sliding scale insulin Anemia Continue to monitor H&H Plan of care discussed with Dr. Rivas Thank you for consultation
[2022-02-06 16:51] VITALS: BP 131/77; TEMP 97
== END 2022-02-06 18:18 | disposition home health service (06) | DRG 638 ==
LOC: ER 18:58 → ERHOLD 20:01 → 2ND 22:06
PROVIDERS: ADMIT Hospitalist; ATTEND Hospitalist
PROC: 02HV33Z Insertion of Infusion Device into Superior Vena Cava, Percutaneous Approach (ICD-10-PCS; principal; 2022-02-04)
PROC: 3E04329 Introduction of Other Anti-infective into Central Vein, Percutaneous Approach (ICD-10-PCS; 2022-02-04)
DX: E11.628 Type 2 diabetes mellitus with other skin complications (principal); L03.115 Cellulitis of right lower limb; E44.0 Moderate protein-calorie malnutrition; K52.9 Noninfective gastroenteritis and colitis, unspecified; I10 Essential (primary) hypertension; E11.51 Type 2 diabetes mellitus with diabetic peripheral angiopathy without gangrene; E78.5 Hyperlipidemia, unspecified; Z68.39 Body mass index [BMI] 39.0-39.9, adult; E11.621 Type 2 diabetes mellitus with foot ulcer; B95.2 Enterococcus as the cause of diseases classified elsewhere; D64.9 Anemia, unspecified; Z89.421 Acquired absence of other right toe(s); Z20.822 Contact with and (suspected) exposure to COVID-19
CPT/HCPCS: 36415; 36569; 71045; 80048; 80053; 80076; 80202; 81003; 81025; 82728; 82947; 83540; 83605; 83735; 84466; 85025; 85610; 85652; 85730; 87040; 87324; 87449; 93925; 96374; 96375; 99285; J1650; J1815; J2270; J2405; J3370; J3475; J3590; J7030; J7040; J7050; U0003

== ENCOUNTER 2023-03-29 14:48 | Inpatient (IN) | payer BC ==
--- OUTSIDE RECORDS SUMMARY | 2023-03-29 14:52 | XMS REPORT | Continuity of Care Document ---
:1965 Author Organization [facility] t Address [address] [place] [address] Care Team Providers Name Role Phone GILBERTO MICHAEL Primary Care Physician Unavailable Justice Camacho Attending Clinician Unavailable DR GILBERTO MICHAEL Attending Clinician Unavailable [phone] Attending Clinician Unavailable [id number] Attending Clinician Unavailable DR DELMAR QUIROZ Attending Clinician Unavailable [phone] Attending Clinician Unavailable Justice Camacho Admitting Clinician Unavailable DR GILBERTO MICHAEL Admitting Clinician Unavailable DR DELMAR QUIROZ Admitting Clinician Unavailable Payers Payer Name Policy Type Policy Number Effective Date Expiration Date Latosha nelson BLUE CROSS [id number] BLUE [facility] BLUE CROSS [id number] [facility] AETNA C1 [id number] [facility] - [facility] Problems Condition Condition Condition Status Onset Resolution Last Treating Co mments Source Name Details Category Date Date Treatment Clinician Date [id number] Status Problem Commo n 105 post total Spirit left knee - [facility] replacemen [facility] [id number] Presence Problem Com sat of left Spirit artificial - [facility]I knee joint [facility] [id number] Type 2 Problem Common diabetes Spirit mellitus [facility] current use of insulin [id number] Dyslipidem Problem Co mmon ia [facility] [id number] Essential Problem Comm on hypertensi [facility] on [facility] [id number] Primary Problem Comm on osteoarthr Spirit itis of [facility] left knee [facility] Allergies, Adverse Reactions, Alerts Allergy Allergy Status Severity Reaction(s) Onset Inactive Treating Comm ents Source Name Type Date Date Clinician codeine codeine Active Unknown Common [facility] amoxicil amoxicil Active Unknown Commo n josseline / josseline / Spirit clavulan clavulan - CHI ate ate [facility] No Known MA Active UNKNOWN [facility] Social History Social Habit Start Date Stop Date Quantity Comments Source Sex Assigned At Com mon [facility] History of Tobacco Use Co mmon [facility] Smoking Status Start Date Stop Date Source Never Smoker [facility] Medications Ordered Filled Start Stop Current Ordering Indication Dosage Frequency Signature Comments Components Source Medication Medication Date Date Medication? Clinician (SIG) Name Name traMADol traMADol No 1{table traMADol HCl 50 MG HCl 50 MG 09-06 t_as_ne HCl 50 MG 00:00: eded} traMADol traMADol No 1{table traMADol HCl 50 MG HCl 50 MG 09-06 t_as_ne HCl 50 MG 00:00: eded} traMADol traMADol No 1{table traMADol HCl 50 MG HCl 50 MG -26 t_as_ne HCl 50 MG 00:00: eded} 00 Tramadol Tramadol 2019- No Julian 1 tablet Common HCl HCl 03-02 07-29 Ribera as needed Spirit 00:00: 00:00 - [facility]I 00 :00 [facility] Xarelto Xarelto Yes Julian 1 tablet Common 6-20 Ribera with food Spirit 00:00: - [facility]I 00 [facility] Xarelto 10 Xarelto 10 No 1{table QD Xarelto 10 MG MG 6-20 t_with_ MG 00:00: food} 00 Xarelto 10 Xarelto 10 2019-0 No 1{table QD Xarelto 10 MG MG 6-20 t_with_ MG 00:00: food} 00 Xarelto 10 Xarelto 10 2019-0 No 1{table QD Xarelto 10 MG MG 6-20 t_with_ MG 00:00: food} 00 Xarelto 10 Xarelto 10 2019-0 No 1{table QD Xarelto 10 Common MG MG 6-20 t_with_ MG Spirit 00:00: food} - CHI [facility] Xarelto 10 Xarelto 10 2019-0 No 1{table QD Xarelto 10 MG MG 6-20 t_with_ MG 00:00: food} 00 LIDOCAINE LIDOCAINE 2019-0 No 10mg Com mon HCL 10MG/ML HCL 10MG/ML 2-18 S pirit 00:00: - CH[facility] Kenalog Kenalog 2019-0 No 40mg Common (Triamcinol (Triamcinol 2-18 S pirit one) one) 00:00: - [facility] LIDOCAINE LIDOCAINE 2019-0 No 10mg Com mon HCL 10MG/ML HCL 10MG/ML 2-18 S pirit 00:00: - [facility] Kenalog Kenalog 2019-0 No 40mg Common (Triamcinol (Triamcinol 2-18 S pirit one) one) 00:00: - CHI 00 [facility] LIDOCAINE LIDOCAINE 2019-0 No 10mg Com mon HCL 10MG/ML HCL 10MG/ML 2-18 S pirit 00:00: - [facility] Kenalog Kenalog 2019-0 No 40mg Common (Triamcinol (Triamcinol 2-18 S pirit one) one) 00:00: - [facility] LIDOCAINE LIDOCAINE 2019-0 No 10mg Com mon HCL 10MG/ML HCL 10MG/ML 2-18 S pirit 00:00: - [facility] Kenalog Kenalog 2019-0 No 40mg Common (Triamcinol (Triamcinol 2-18 S pirit one) one) 00:00: - [facility] Hyalgan 20 Hyalgan 20 2018-1 No 20mg C ommon mg mg 0-17 Spirit 00:00: - [facility] Hyalgan 20 Hyalgan 20 2018-1 No 20mg C ommon mg mg 0-17 Spirit 00:00: - [facility] Hyalgan 20 Hyalgan 20 2018-1 No 20mg C ommon mg mg 017 Spirit 00:00: - [facility] Hyalgan 20 Hyalgan 20 2018-1 No 20mg C ommon mg mg 017 Spirit 00:00: - [facility] Hyalgan 20 Hyalgan 20 2018-1 No 20mg C ommon mg mg 0 Spirit 00:00: - [facility] Hyalgan 20 Hyalgan 20 2018-1 No 20mg C ommon mg mg 0 Spirit 00:00: - [facility] Hyalgan 20 Hyalgan 20 2018-1 No 20mg C ommon mg mg 0 Spirit 00:00: - [facility] Hyalgan 20 Hyalgan 20 2017-1 No 20mg C ommon mg mg 0 Spirit 00:00: - [facility] Betamethaso Betamethaso 2018-0 No 1mL Common ne Sodium ne Sodium 9-27 Spiri t Phosphate Phosphate 00:00: - C [place] [facility] Hyalgan 20 Hyalgan 20 2018-0 No 20mg C ommon mg mg 9 Spirit 00:00: - [facility] LIDOCAINE LIDOCAINE 2018-0 No 10mg Com mon HCL 10MG/ML HCL 10MG/ML 927 S pirit 00:00: - [facility] Betamethaso Betamethaso 2018-0 No 1mL Common ne Sodium ne Sodium 9-27 Spiri t Phosphate Phosphate 00:00: - C [place] [facility] Hyalgan 20 Hyalgan 20 2018-0 No 20mg C ommon mg mg 9 Spirit 00:00: - [facility] LIDOCAINE LIDOCAINE 2018-0 No 10mg Com mon HCL 10MG/ML HCL 10MG/ML 9-27 S pirit 00:00: - [facility] Betamethaso Betamethaso 2018-0 No 1mL Common ne Sodium ne Sodium 9-27 Spiri t Phosphate Phosphate 00:00: - C [place] [facility] Hyalgan 20 Hyalgan 20 No 20mg C ommon mg mg 05-08 Spirit 00:00: - [facility] LIDOCAINE LIDOCAINE No 10mg Com mon HCL 10MG/ML HCL 10MG/ML 05-08 S pirit 00:00: - [facility] Betamethaso Betamethaso No 1mL Common ne Sodium ne Sodium 05-08 Spiri t Phosphate Phosphate 00:00: - [facility] Hyalgan 20 Hyalgan 20 No 20mg C ommon mg mg 05-08 Spirit 00:00: - [facility] LIDOCAINE LIDOCAINE No 10mg Com mon HCL 10MG/ML HCL 10MG/ML 05-08 S pirit 00:00: - [facility] Lyrica Lyrica Yes Julian 2 capsules Co mmon Ribera [facility] Ibuprofen Ibuprofen Yes Julian 1 tablet Common Ribera with food Spirit or milk as - CHI needed [facility] Atenolol Atenolol Yes Julian not Comm on Ribera defined [facility] Tylenol Tylenol Yes Julian not Common (#4) with (#4) with Ribera defined Sp beto codeine codeine [facility] Farxiga Farxiga Yes Julian not Common Ribera defined [facility] GlipiZIDE GlipiZIDE Yes Julian not Co mmon Ribera defined [facility] Omeprazole Omeprazole Yes Julian not Common Ribera defined [facility] Ozempic Ozempic Yes Julian not Common Irbera defined [facility] Simvastatin Simvastatin Yes Julian not Common Ribera defined [facility] Metformin Metformin Yes Julian not Co mmon HCl HCl Ribera defined [facility] traMADol traMADol No 1{table QID traMADol HCl 50 MG HCl 50 MG t_as_ne HCl 50 MG eded} Omeprazole Omeprazole No QD Omeprazole 40 MG 40 MG 40 MG Tylenol Tylenol No Tylenol (#4) with (#4) with (#4) with codeine codeine codeine Ozempic Ozempic No Ozempic Ibuprofen Ibuprofen No TID Ibuprofen 200 MG 200 MG 200 MG Atenolol Atenolol No 1{table QD Atenolol 100 MG 100 MG t} 100 MG Farxiga Farxiga No Farxiga Cetirizine Cetirizine No Cetirizine HCl HCl HCl Sildenafil Sildenafil No Sildenafil Citrate Citrate Citrate metFORMIN metFORMIN No QD metFORMIN HCl 500 MG HCl 500 MG HCl 500 MG Tadalafil Tadalafil No Tadalafil glipiZIDE glipiZIDE No QD glipiZIDE 10 MG 10 MG 10 MG Benzonatate Benzonatate No Benzonatat e Simvastatin Simvastatin No Simvastati n atorvastati atorvastati No atorvastat n n in Alpha Alpha No Alpha Lipoic Acid Lipoic Acid Lipoic Acid Pregabalin Pregabalin No BID Pregabalin 150 MG 150 MG 150 MG Jardiance Jardiance No 1{table QD Jardiance 25 MG 25 MG t} 25 MG traMADol traMADol No traMADol HCl HCl HCl clopidogrel clopidogrel No clopidogre l Lyrica 150 Lyrica 150 No 1{capsu BID Lyrica 150 MG MG le} MG Eveline Eveline No Eveline Aspirin Aspirin Aspirin Stiolto Stiolto No Stiolto Respimat Respimat Respimat traMADol traMADol No 1{table QID traMADol HCl 50 MG HCl 50 MG t_as_ne HCl 50 MG eded} Omeprazole Omeprazole No QD Omeprazole 40 MG 40 MG 40 MG Tylenol Tylenol No Tylenol (#4) with (#4) with (#4) with codeine codeine codeine Ozempic Ozempic No Ozempic Ibuprofen Ibuprofen No TID Ibuprofen 200 MG 200 MG 200 MG Atenolol Atenolol No 1{table QD Atenolol 100 MG 100 MG t} 100 MG Farxiga Farxiga No Farxiga Cetirizine Cetirizine No Cetirizine HCl HCl HCl Sildenafil Sildenafil No Sildenafil Citrate Citrate Citrate metFORMIN metFORMIN No QD metFORMIN HCl 500 MG HCl 500 MG HCl 500 MG Tadalafil Tadalafil No Tadalafil glipiZIDE glipiZIDE No QD glipiZIDE 10 MG 10 MG 10 MG Benzonatate Benzonatate No Benzonatat e Simvastatin Simvastatin No Simvastati n atorvastati atorvastati No atorvastat n n in Alpha Alpha No Alpha Lipoic Acid Lipoic Acid Lipoic Acid Pregabalin Pregabalin No BID Pregabalin 150 MG 150 MG 150 MG Jardiance Jardiance No 1{table QD Jardiance 25 MG 25 MG t} 25 MG traMADol traMADol No traMADol HCl HCl HCl clopidogrel clopidogrel No clopidogre l Lyrica 150 Lyrica 150 No 1{capsu BID Lyrica 150 MG MG le} MG Eveline Eveline No Eveline Aspirin Aspirin Aspirin Stiolto Stiolto No Stiolto Respimat Respimat Respimat traMADol traMADol No 1{table QID traMADol HCl 50 MG HCl 50 MG t_as_ne HCl 50 MG eded} Omeprazole Omeprazole No QD Omeprazole 40 MG 40 MG 40 MG Tylenol Tylenol No Tylenol (#4) with (#4) with (#4) with codeine codeine codeine Ozempic Ozempic No Ozempic Ibuprofen Ibuprofen No TID Ibuprofen 200 MG 200 MG 200 MG Atenolol Atenolol No 1{table QD Atenolol 100 MG 100 MG t} 100 MG Farxiga Farxiga No Farxiga Cetirizine Cetirizine No Cetirizine HCl HCl HCl Sildenafil Sildenafil No Sildenafil Citrate Citrate Citrate metFORMIN metFORMIN No QD metFORMIN HCl 500 MG HCl 500 MG HCl 500 MG Tadalafil Tadalafil No Tadalafil glipiZIDE glipiZIDE No QD glipiZIDE 10 MG 10 MG 10 MG Benzonatate Benzonatate No Benzonatat e Simvastatin Simvastatin No Simvastati n atorvastati atorvastati No atorvastat n n in Alpha Alpha No Alpha Lipoic Acid Lipoic Acid Lipoic Acid Pregabalin Pregabalin No BID Pregabalin 150 MG 150 MG 150 MG Eveline Eveline No Eveline Common Aspirin Aspirin Aspirin [facility] Jardiance Jardiance No 1{table QD Jardiance 25 MG 25 MG t} 25 MG traMADol traMADol No traMADol HCl HCl HCl clopidogrel clopidogrel No clopidogre l Lyrica 150 Lyrica 150 No 1{capsu BID Lyrica 150 MG MG le} MG Eveline Eveline No Eveline Aspirin Aspirin Aspirin Benzonatate Benzonatate No Benzonatat Common e [facility] metFORMIN metFORMIN No QD metFORMIN Common HCl 500 MG HCl 500 MG HCl 500 MG [facility] Pregabalin Pregabalin No BID Pregabalin Common 150 MG 150 MG 150 MG [facility] Jardiance Jardiance No 1{table QD Jardiance Common 25 MG 25 MG t} 25 MG [facility] Ozempic Ozempic No Ozempic [facility] Stiolto Stiolto No Stiolto Common Respimat Respimat Respimat [facility] Farxiga Farxiga No Farxiga Common [facility] clopidogrel clopidogrel No clopidogre Common l [facility] traMADol traMADol No traMADol Com mon HCl HCl HCl [facility] Alpha Alpha No Alpha Common Lipoic Acid Lipoic Acid Lipoic [facility] Atenolol Atenolol No 1{table QD Atenolol Common 100 MG 100 MG t} 100 MG [facility] Tylenol Tylenol No Tylenol Common (#4) with (#4) with (#4) with [facility] codeine codeine codeine [facility] Sildenafil Sildenafil No Sildenafil Common Citrate Citrate Citrate [facility] Lyrica 150 Lyrica 150 No 1{capsu BID Lyrica 150 Common MG MG le} MG [facility] Ibuprofen Ibuprofen No TID Ibuprofen Common 200 MG 200 MG 200 MG [facility] Omeprazole Omeprazole No QD Omeprazole Common 40 MG 40 MG 40 MG [facility] atorvastati atorvastati No atorvastat Common n n in [facility] Tadalafil Tadalafil No Tadalafil Common [facility] glipiZIDE glipiZIDE No QD glipiZIDE Common 10 MG 10 MG 10 MG [facility] traMADol traMADol No 1{table QID traMADol Common HCl 50 MG HCl 50 MG t_as_ne HCl 50 MG [facility] Sim[facility] Simvastatin No Simvastati Common n [facility] Alpha Alpha No Alpha Lipoic Acid Lipoic Acid Lipoic Acid Sildenafil Sildenafil No Sildenafil Citrate Citrate Citrate Tylenol Tylenol No Tylenol (#4) with (#4) with (#4) with codeine codeine codeine Jardiance Jardiance No 1{table QD Jardiance 25 MG 25 MG t} 25 MG glipiZIDE glipiZIDE No QD glipiZIDE 10 MG 10 MG 10 MG Simvastatin Simvastatin No Simvastati n Eveline Eveline No Eveline Aspirin Aspirin Aspirin Lyrica 150 Lyrica 150 No 1{capsu BID Lyrica 150 MG MG le} MG Ozempic Ozempic No Ozempic Ibuprofen Ibuprofen No TID Ibuprofen 200 MG 200 MG 200 MG Pregabalin Pregabalin No BID Pregabalin 150 MG 150 MG 150 MG Omeprazole Omeprazole No QD Omeprazole 40 MG 40 MG 40 MG Stiolto Stiolto No Stiolto Respimat Respimat Respimat Benzonatate Benzonatate No Benzonatat e traMADol traMADol No 1{table QID traMADol HCl 50 MG HCl 50 MG t_as_ne HCl 50 MG eded} traMADol traMADol No traMADol HCl HCl HCl metFORMIN metFORMIN No QD metFORMIN HCl 500 MG HCl 500 MG HCl 500 MG Tadalafil Tadalafil No Tadalafil atorvastati atorvastati No atorvastat n n in Atenolol Atenolol No 1{table QD Atenolol 100 MG 100 MG t} 100 MG clopidogrel clopidogrel No clopidogre l Farxiga Farxiga No Farxiga Stiolto Stiolto No Stiolto Respimat Respimat Respimat Immunizations Ordered Immunization Filled Immunization Date Status Commen ts Source Name Name Val Neal 2018-09-29 Completed [facility] (Triamcinolone) (Triamcinolone) 08:03:00 [facility] LIDOCAINE HCL 10MG/ML LIDOCAINE HCL 2018-09-29 Completed Common [facility] 10MG/ML 08:00:00 [facility] Hyalgan 20 mg Hyalgan 20 mg 2018-05-28 Completed Common S pirit 14:17:00 [facility] Hyalgan 20 mg Hyalgan 20 mg 2018-05-20 Completed Common S pirit 15:47:00 [facility] Hyalgan 20 mg Hyalgan 20 mg 2018-05-08 Completed Common S pirit 08:34:00 [facility] Betamethasone Sodium Betamethasone Sodium 2018-05-08 Completed Common [facility] Phosphate Phosphate 08:34:00 [facility] LIDOCAINE HCL 10MG/ML LIDOCAINE HCL 2018-05-08 Completed Common [facility] 10MG/ML 08:34:00 [facility] Vital Signs Vital Name Observation Time Observation Value Comments Source height 2022-09-03 08:00:00 69.5 [in_i] [facility] weight 2022-09-03 08:00:00 264 [lb_av] [facility] temperature 2022-09-03 08:00:00 98.1 [degF] [facility] bmi 2022-09-03 08:00:00 38.42 kg/m2 [facility] blood pressure 2022-09-03 08:00:00 124 mm[Hg] Common [facility] - systolic [facility] blood pressure 2022-09-03 08:00:00 76 mm[Hg] Common [facility] - diastolic [facility] height 2021-12-11 13:30:00 69.5 [in_i] [facility] weight 2021-12-11 13:30:00 270 [lb_av] [facility] temperature 2021-12-11 13:30:00 97.3 [degF] [facility] bmi 2021-12-11 13:30:00 39.3 kg/m2 [facility] blood pressure 2021-12-11 13:30:00 132 mm[Hg] Common [facility] - systolic [facility] blood pressure 2021-12-11 13:30:00 72 mm[Hg] Common [facility] - diastolic [facility] height 2021-02-14 15:00:00 69.5 [in_i] [facility] weight 2021-02-14 15:00:00 253.4 [lb_av] [facility] temperature 2021-02-14 15:00:00 97.3 [degF] [facility] bmi 2021-02-14 15:00:00 36.88 kg/m2 Common S pirit - [facility] blood pressure 2021-02-14 15:00:00 126 mm[Hg] Common [facility] - systolic [facility] blood pressure 2021-02-14 15:00:00 74 mm[Hg] Common [facility] - diastolic [facility] Procedures This patient has no known procedures. Encounters Start End Encounter Admission Attending Care Care Encounter Source Date/Time Date/Time Type Type Clinicians Facility Department ID 2022-09-18 Outpatient [place], STLMLC STLMLC [id number] Common 14:48:00 Justice [id number] [facility] 2022-09-03 Outpatient [place], STLMLC STLMLC [id number] Common 08:42:00 Justice [id number] [facility] 2022-08-31 Outpatient [place], STLMLC STLMLC [id number] Common 08:18:00 Justice [id number] [facility] 2021-12-22 Outpatient ELCAMPO ELCAMPO [id number] El 12:07:01 [id number] [facility] 2021-12-08 Outpatient [place], STLMLC STLMLC [id number] Common 09:23:00 Justice [id number] [facility] 2021-09-06 Outpatient [place], STLMLC STLMLC [id number] Common 13:22:17 Justice [id number] [facility] 2021-09-06 Outpatient [place], STLMLC STLMLC [id number] Common 11:29:36 Justice [id number] [facility] 2022-09-04 2022-09-04 (TEL) STLMLC STLMLC [id number] Co mmon 00:00:00 00:00:00 [facility] 2022-09-04 2022-09-04 (TEL) STLMLC STLMLC [id number] Co mmon 00:00:00 00:00:00 [facility] 2022-09-03 2022-09-03 OFFICE STLMLC STLMLC [id number] Co mmon 00:00:00 00:00:00 VISIT Spirit ESTAB PT - CHI LEVEL 4 [facility] 2022-01-28 2022-01-28 Outpatient GILBERTO DALEY [facility] TY [id number] El 11:27:00 13:14:00 [id number] [id number] 2021-12-22 2021-12-22 Outpatient DELMAR FAYE [facility] [id number] El 12:08:00 12:40:00 [id number] [facility] 2021-12-11 2021-12-11 OFFICE STLMLC STLMLC [id number] Co mmon 00:00:00 00:00:00 VISIT EST Spir it PT LEVEL 3 - CH[facility] 2021-02-14 2021-02-14 OFFICE STLMLC STLMLC [id number] Co mmon 00:00:00 00:00:00 VISIT EST Spir it PT LEVEL 3 - CH[facility] 2020-02-15 2020-02-15 [facility] [id number] Common 15:00:00 15:00:00 [facility] - [facility] 2019-07-30 2019-07-30 [facility] [id number] Common 15:30:00 15:30:00 t [facility] Sp[facility] t and Joint Joint - [facility] 2019-05-04 2019-05-04 [facility] [id number] Common 15:30:00 15:30:00 t [facility] Bone and Spiri t and Joint Joint - [facility] 2019-03-23 2019-03-23 [facility] [id number] Common 11:00:00 11:00:00 t Bone Bone and Spiri t and Joint Joint - [facility] 2019-03-02 2019-03-02 [facility] [id number] Common 08:59:00 08:59:00 t Bone Bone and Spiri t and Joint Joint - [facility] 2019-02-17 2019-02-17 [facility] [id number] Common 14:30:00 14:30:00 t Bone Bone and Spiri t and Joint Joint - [facility] 2019-02-05 2019-02-05 [facility] [id number] Common 10:30:00 10:30:00 t Bone Bone and Spiri t and Joint Joint - [facility] 2019-02-05 2019-02-05 [facility] [id number] Common 09:38:00 09:38:00 t Bone Bone and Spiri t and Joint Joint - [facility] 2019-02-03 2019-02-03 [facility] [id number] Common 13:19:00 13:19:00 t Bone Bone and Spiri t and Joint Joint - [facility] 2019-02-02 2019-02-02 [facility] [id number] Common 14:39:00 14:39:00 t Bone Bone and Spiri t and Joint Joint - [facility] 2019-02-02 2019-02-02 [facility] [id number] Common 12:32:00 12:32:00 t Bone Bone and Spiri t and Joint Joint - [facility] 2019-01-29 2019-01-29 [facility] [id number] Common 13:21:00 13:21:00 t Bone Bone and Spiri t and Joint Joint - [facility] 2019-01-29 2019-01-29 [facility] [id number] Common 11:43:00 11:43:00 t Bone Bone and Spiri t and Joint Joint - [facility] 2019-01-29 2019-01-29 [facility] [id number] Common 09:33:00 09:33:00 t Bone Bone and Spiri t and Joint Joint - [facility] 2018-12-22 2018-12-22 [facility] [id number] Common 14:29:00 14:29:00 t Bone Bone and Spiri t and Joint Joint - [facility] 2018-12-10 2018-12-10 [facility] [id number] Common 14:29:00 14:29:00 t Bone Bone and Spiri t and Joint Joint - [facility] 2018-12-09 2018-12-09 [facility] [id number] Common 11:06:00 11:06:00 t Bone Bone and Spiri t and Joint Joint - [facility] 2018-12-08 2018-12-08 [facility] [id number] Common 14:04:00 14:04:00 t Bone Bone and Spiri t and Joint Joint - [facility] 2018-12-03 2018-12-03 [facility] [id number] Common 08:30:00 08:30:00 t Bone Bone and Spiri t and Joint Joint - [facility] 2018-09-29 2018-09-29 [facility] [id number] Common 15:00:00 15:00:00 t Bone Bone and Spiri t and Joint Joint - [facility] 2018-08-22 2018-08-22 [facility] [id number] Common 11:04:00 11:04:00 t Bone Bone and Spiri t and Joint Joint - [facility] 2018-05-20 2018-05-20 [facility] [id number] Common 15:30:00 15:30:00 t Bone Bone and Spiri t and Joint Joint - [facility] 2018-05-08 2018-05-08 [facility] [id number] Common 08:30:00 08:30:00 t Bone Bone and Spiri t and Joint Joint - [facility] 2018-04-28 2018-04-28 [facility] [id number] Common 13:30:00 13:30:00 t Bone Bone and Spiri t and Joint Joint - [facility] Results This patient has no known results.
[2023-03-29 16:02] LABS: Absolute Lymphocytes (CBC) 1.5 K/uL (0.7-4.9); Hematocrit 44.5 % (39.6-49.0); MPV 9.6 fL (7.6-11.3); Platelets 133 thou/uL (152-406)
[2023-03-29 16:07] LABS: Protime INR 0.97
[2023-03-29] MEDS ORDERED: Levofloxacin 750mg IV 750 MG/150 ML BAG IV ONE (16:11)
[2023-03-29] MEDS ORDERED: NA CHLORIDE 0.9% 1,000 ML ONE (16:11)
--- NOTE | 2023-03-29 16:15 | ER ---
Nurse's Notes [facility] Name: Alessandro Taylor Age: 57 yrs Sex: Male : 1965 Arrival Date: 03/29/2023 Time: 14:48 Bed 16 Private MD: Diagnosis: Cellulitis of right lower limb;Failure of outpatient treatment of cellulitis Presentation: 03/29 15:20 Chief complaint: Patient states: wound to bottom of right foot. Pts states that cm10 the wound opened up the first week in February and he has been seeing Dr. Velazquez for the wound. Pt was placed on oral ABX on Saturday and was seen in office Saturday for a debridement. Pt states that his pain is not getting better and the redness is increasing. Coronavirus screen: Client denies travel out of the [place] in the last 14 days. Ebola Screen: Patient denies travel to an Ebola-affected area in the 21 days before illness onset. No symptoms or risks identified at this time. Initial Sepsis Screen: Does the patient meet any 2 criteria? No. Patient's initial sepsis screen is negative. Does the patient have a suspected source of infection? Yes: Skin breakdown/wound. Risk Assessment: Do you want to hurt yourself or someone else? Patient reports no desire to harm self or others. Onset of symptoms was March 29, 2023. 15:20 Method Of Arrival: Ambulatory 10 15:20 Acuity: ROBERT 3 cm10 Triage Assessment: 15:51 General: Appears in no apparent distress. comfortable, well groomed, Behavior is calm, ml4 cooperative, appropriate for age. Pain: Complains of pain in right foot Pain does not radiate. Pain currently is 8 out of 10 on a pain scale. Quality of pain is described as burning, aching, Is continuous. Neuro: [place] Agitation-Sedation Scale (RASS): 0 - Alert and Calm Level of Consciousness is awake, alert, obeys commands, Oriented to person, place, time, situation, Appropriate for age Toppiece Cutter are equal bilaterally Speech is normal, Pupils are PERRLA. Cardiovascular: No deficits noted. Denies chest pain, shortness of breath. Respiratory: No deficits noted. Airway is patent Respiratory effort is even, unlabored, Respiratory pattern is regular, symmetrical. GI: No deficits noted. : No deficits noted. Derm: Wound noted right foot Wound is packed Reports pain that is 8 out of 10 on a pain scale. Denies itching, tingling. Historical: - Allergies: 15:22 HYDROCODONE; cm10 15:22 Vicodin; cm10 15:22 Augmentin; cm10 - PMHx: 15:22 Diabetes - NIDDM; Diabetic wound to right foot; GERD; High Cholesterol; Hyperlipidemia; cm10 Hypertension; osteomyelitis; - PSHx: 15:22 right foot surgery; cm10 - Immunization history:: Adult Immunizations unknown. - Social history:: Smoking status: Patient denies any tobacco usage or history of. - Family history:: not pertinent. - Hospitalizations: : No recent hospitalization is reported. Screenin:53 [facility] ED Fall Risk Assessment (Adult) History of falling in the last 3 months, ml4 including since admission No falls in past 3 months (0 pts) Confusion or Disorientation No (0 pts) Intoxicated or Sedated No (0 pts) Impaired Gait Yes (1 pt) Mobility Assist Device Used Yes (1 pt) Altered Elimination No (0 pt) Score/Fall Risk Level 0 - 2 = Low Risk. Abuse screen: Denies threats or abuse. Nutritional screening: No deficits noted. Tuberculosis screening: No symptoms or risk factors identified. Assessment: 15:53 Reassessment: Patient appears in no apparent distress at this time. See triage note. ml4 19:08 Reassessment: Attempted to call report, no answer. cm10 19:31 Reassessment: Attempted to give report, no answer. cm10 Vital Signs: 15:20 BP 115 / 95; Pulse 79; Resp 18; Temp 98.1; Pulse Ox 94% ; Weight 120.2 kg; Height 5 ft. cm10 10 in. ; Pain 6/10; 15:53 BP 114 / 67; Pulse 87; Resp 18; Temp 98.1(O); Pulse Ox 98% on R/A; Pain 8/10; ml4 15:20 Body Mass Index 38.02 (120.20 kg, 177.8 cm) cm10 15:20 Pain Scale: Adult cm10 15:53 Pain Scale: Adult ml4 Esteban Coma Score: 15:53 Eye Response: spontaneous(4). Motor Response: obeys commands(6). Verbal Response: ml4 oriented(5). Total: 15. ED Course: 14:52 Patient arrived in ED. im 14:52 Param Maynard MD is Attending Physician. rn 15:14 LUIS FELIPE CortesIII, Johnathon RN is Primary Nurse. ml4 15:22 Triage completed. cm10 15:23 Arm band placed on Patient placed in an exam room, on a stretcher. cm10 15:54 No provider procedures requiring assistance completed. Inserted saline lock: 20 gauge ml4 in left forearm, using aseptic technique. Blood collected. Patient maintains SpO2 saturation greater than 95% on room air. 15:55 Patient has correct armband on for positive identification. Bed in low position. Call ml4 light in reach. Side rails up X2. Adult w/ patient. Provided Education on: N/A. 16:14 Nickolas Rodriguez MD is Hospitalizing Provider. rn 19:59 Report given to LUIS FELIPE Zhou. bedside report given. cm10 20:00 Patient admitted, IV remains in place. cm10 Administered Medications: 18:22 Discontinued: levofloxacin IVPB 750 mg 150 ml IVPB once over 90 mins ml4 16:04 Drug: levofloxacin IVPB 750 mg Volume: 150 ml; Route: IVPB; Infused Over: 90 mins; ml4 Site: left femoral; 18:21 Follow up: IV Status: Completed infusion ml4 18:21 Follow up: IV Status: Completed infusion; IV Intake: 150ml ml4 16:06 Drug: NS 0.9% IV 1000 ml Route: IV; Rate: 1000 ml; Site: left forearm; ml4 20:00 Follow up: Response: No adverse reaction; IV Status: Completed infusion cm10 16:57 Drug: morphine IVP or IV 4 mg Route: IVP; Infused Over: 4 mins; Site: left forearm; ml4 20:00 Follow up: Response: No adverse reaction cm10 Medication: 15:53 VIS not applicable for this client. ml4 Intake: 18:21 IV: 150ml; Total: 150ml. ml4 Outcome: 16:14 Decision to Hospitalize by Provider. rn 20:00 Admitted to Med/surg accompanied by nurse, via wheelchair, room 407. cm10 20:00 Condition: good 20:00 Instructed on the need for admit. 20:01 Patient left the ED. cm10 Signatures: Maynard, Param, MD MD rn Jensen, Jeanette im Jose Juan, Cathy, RN RN cm10 Lembo, RNIII, Johnathon, RN RN ml4
--- NOTE | 2023-03-29 16:15 | EDPHYS ---
Physician Documentation [facility] Name: Alessandro Taylor Age: 57 yrs Sex: Male : 1965 Arrival Date: 03/29/2023 Time: 14:48 Bed 16 Private MD: ED Physician Param Maynard HPI: 03/29 15:42 This 57 yrs old Male presents to ER via Ambulatory with complaints of Foot Pain - right.rn 15:42 The patient presents with pain. The complaints affect the right foot. Onset: The rn symptoms/episode began/occurred at an unknown time. Severity of symptoms: At their worst the symptoms were moderate, in the emergency department the symptoms are unchanged. The patient has experienced a previous episode. The patient has been recently seen by a physician:. Pt sent by Dr. Velazquez for evaluation and admission, for failure of outpatient treatment of right foot cellulitis. Has been on abx and had outpatient debridement. Patient reports increase in pain and swelling, was originally just on bottom of foot and now is on top of foot. NO fever/chills/vomiting. . Historical: - Allergies: 15:22 HYDROCODONE; cm10 15:22 Vicodin; cm10 15:22 Augmentin; cm10 - PMHx: 15:22 Diabetes - NIDDM; Diabetic wound to right foot; GERD; High Cholesterol; Hyperlipidemia; cm10 Hypertension; osteomyelitis; - PSHx: 15:22 right foot surgery; cm10 - Immunization history:: Adult Immunizations unknown. - Social history:: Smoking status: Patient denies any tobacco usage or history of. - Family history:: not pertinent. - Hospitalizations: : No recent hospitalization is reported. ROS: 15:42 Constitutional: Negative for fever, chills, and weight loss, Cardiovascular: Negative rn for chest pain, palpitations, and edema, Respiratory: Negative for shortness of breath, cough, wheezing, and pleuritic chest pain, Abdomen/GI: Negative for abdominal pain, nausea, vomiting, diarrhea, and constipation, : + polyuria MS/Extremity: + pain to right foot Exam: 15:42 Constitutional: This is a well developed, well nourished patient who is awake, alert, rn and in no acute distress. Cardiovascular: Regular rate and rhythm. Respiratory: No increased work of breathing, no retractions or nasal flaring. Skin: Warm, dry, no cellulitis MS/ Extremity: Strong DP pulse left foot, weak pulse right foot, no cyanosis, + open wound on bottom of foot with tenderness, no drainage, and mild swelling to instep of right foot. No streaking or fluctuance. Vital Signs: 15:20 BP 115 / 95; Pulse 79; Resp 18; Temp 98.1; Pulse Ox 94% ; Weight 120.2 kg; Height 5 ft. cm10 10 in. ; Pain 6/10; 15:53 BP 114 / 67; Pulse 87; Resp 18; Temp 98.1(O); Pulse Ox 98% on R/A; Pain 8/10; ml4 15:20 Body Mass Index 38.02 (120.20 kg, 177.8 cm) cm10 15:20 Pain Scale: Adult cm10 15:53 Pain Scale: Adult ml4 [place] Coma Score: 15:53 Eye Response: spontaneous(4). Motor Response: obeys commands(6). Verbal Response: ml4 oriented(5). Total: 15. MDM: 14:52 Patient medically screened. rn 15:42 Differential diagnosis: cellulitis. rn 16:14 Data reviewed: vital signs, nurses notes, lab test result(s), and as a result, I will government property inspector patient. Consideration of Admission/Observation Patient was admitted/placed on observation. Escalation of care including admission/observation considered. I considered the following discharge prescriptions or medication management in the emergency department Medications were administered in the Emergency Department. See MAR. Counseling: I had a detailed discussion with the patient and/or guardian regarding the historical points, exam findings, and any diagnostic results supporting the discharge/admit diagnosis, lab results. 03/29 14:53 Order name: Blood Culture Adult (2) rn 03/29 14:53 Order name: CBC with Diff; Complete Time: 16:10 rn 03/29 14:53 Order name: CMP; Complete Time: 16:41 rn 03/29 14:53 Order name: Lactate w/ 2H reflex if indic.; Complete Time: 16:41 rn 03/29 14:53 Order name: Protime (+inr); Complete Time: 16:10 rn 03/29 14:53 Order name: Ptt, Activated; Complete Time: 16:10 rn 03/29 16:47 Order name: Basic Metabolic Panel EDMS 03/29 16:47 Order name: Basic Metabolic Panel EDMS 03/29 16:47 Order name: CBC with Automated Diff EDMS 03/29 16:47 Order name: CBC with Automated Diff EDMS 03/29 16:47 Order name: Magnesium EDMS 03/29 16:47 Order name: Magnesium EDMS 03/29 16:47 Order name: Phosphorus EDMS 03/29 16:47 Order name: Phosphorus EDMS 03/29 14:53 Order name: EKG; Complete Time: 14:53 rn 03/29 16:47 Order name: 60g Consistent Carbohydrate (ADA 1800/2000) EDMS 03/29 16:48 Order name: Dr Elaine Velazquez EDMS 03/29 14:53 Order name: Accucheck; Complete Time: 15:50 rn 03/29 14:53 Order name: Cardiac monitoring; Complete Time: 15:51 rn 03/29 14:53 Order name: EKG - Nurse/Tech; Complete Time: 15:51 rn 03/29 14:53 Order name: IV Saline Lock - Large Bore; Complete Time: 15:34 rn 03/29 14:53 Order name: Labs collected and sent; Complete Time: 15:50 rn 03/29 14:53 Order name: O2 Per Protocol; Complete Time: 15:50 rn 03/29 14:53 Order name: O2 Sat Monitoring; Complete Time: 15:50 rn 03/29 14:53 Order name: Vital Signs; Complete Time: 15:50 rn Administered Medications: 18:22 Discontinued: levofloxacin IVPB 750 mg 150 ml IVPB once over 90 mins ml4 16:04 Drug: levofloxacin IVPB 750 mg Volume: 150 ml; Route: IVPB; Infused Over: 90 mins; ml4 Site: left femoral; 18:21 Follow up: IV Status: Completed infusion ml4 18:21 Follow up: IV Status: Completed infusion; IV Intake: 150ml ml4 16:06 Drug: NS 0.9% IV 1000 ml Route: IV; Rate: 1000 ml; Site: left forearm; ml4 20:00 Follow up: Response: No adverse reaction; IV Status: Completed infusion cm10 16:57 Drug: morphine IVP or IV 4 mg Route: IVP; Infused Over: 4 mins; Site: left forearm; ml4 20:00 Follow up: Response: No adverse reaction cm10 Disposition Summary: 03/29/23 16:14 Hospitalization Ordered Hospitalization Status: Inpatient Admission rn Provider: Nickolas Rodriguez rn Location: Telemetry/MedSur (Inpatient) rn Condition: Stable rn Problem: an ongoing problem rn Symptoms: have worsened rn Bed/Room Type: Standard rn Room Assignment: 407(03/29/23 18:44) Diagnosis - Cellulitis of right lower limb rn - Failure of outpatient treatment of cellulitis rn Forms: - Medication Reconciliation Form rn - SBAR form rn - Leadership Thank You Letter rn Signatures: Dispatcher [employer] EDParam Damico MD MD rn Blanchard, Shelby RN RN ss Cathy Manzano RN RN cm10 Sebastian, RNIII, Johnathon, RN RN ml4 Corrections: (The following items were deleted from the chart) 18:44 16:14 rn ss
[2023-03-29 16:19] LABS: Albumin 4.2 g/dL (3.4-5.0); Bilirubin Total 0.6 mg/dL (0.2-1.0); Potassium 4.6 mEq/L (3.5-5.1); Protein, Total 7.8 g/dL (6.4-8.2)
--- NOTE | 2023-03-29 16:49 | P.HP ---
Certification for Inpatient Patient admitted to: Inpatient With expected LOS: >2 Midnights Patient will require the following post-hospital care: None Practitioner: I am a practitioner with admitting privileges, knowledge of patient current condition, hospital course, and medical plan of care. Services: Services provided to patient in accordance with Admission requirements found in Title 42 Section 412.3 of the Code of Federal Regulations Patient History Date of Service: 03/29/23 Reason for admission: Cellulitis History of Present Illness: Mr. Alessandro Taylor is a pleasant 57 year old male who has a past medical history of type II diabetes mellitus complicated by diabetic neuropathy, peripheral arterial disease complicated by right toe amputations s/p right leg stenting, hypertension, dyslipidemia, and gastroesophageal reflux disease who presents to the [facility] Emergency Department for a right foot wound. He reports that, about 6 weeks ago, a callus on the plantar aspect of his right foot cracked. He states that this has been associated with a sharp pain, graded 7-8/10 in severity. He denies any obvious inciting or alleviating factors. He has not tried taking anything for his symptoms. He has a history of osteomyelitis resulting in amputation of all of the toes on his right foot. On review of systems, he denies any fevers, chills, headaches, chest pain, palpitations, shortness of breath, wheezing, cough, abdominal pain, nausea/vomiting, diarrhea, or any other symptoms. He saw Dr. Velazquez on 03/27/2023 and was advised to present to the Emergency Department for further evaluation. Upon presentation, his vital signs were stable. His laboratory studies were notable for a creatinine of 1.42, a glucose of 210, and a lactic acid of 2.4. Blood cultures x 2 were obtained. In the Emergency Department, he was given levofloxacin and 1 L Normal Saline. He was admitted to the General Internal Medicine service for further evaluation. Allergies hydrocodone [From Vicodin] Allergy (Verified 01/29/19 10:07) Unknown amoxicillin [From Augmentin] Adverse Reaction (Verified 03/29/23 17:55) clavulanic acid [From Augmentin] Adverse Reaction (Verified 03/29/23 17:55) Home Medications: Metformin ER [Glucophage ER*] 500 mg PO BID 10/19/18 Omeprazole 40 mg PO DAILY 10/19/18 Pregabalin [Lyrica] 150 mg PO BID 10/19/18 atenoloL [Atenolol] 100 mg PO [id number] 10/19/18 Aspirin [Aspirin EC 81 MG] 81 mg PO DAILY 02/03/22 Atorvastatin Calcium [Lipitor] 40 mg PO BEDTIME 02/03/22 Clopidogrel Bisulfate [Plavix*] 75 mg PO DAILY 02/03/22 Anastrozole [Arimidex] 0.25 mg PO EVERY 7TH DAY 03/29/23 Cetirizine HCl [Zyrtec] 10 mg PO DAILY PRN 03/29/23 Empagliflozin [Jardiance] 25 mg PO DAILY 03/29/23 Semaglutide [Ozempic] 0.5 mg SQ EVERY 7TH DAY 03/29/23 glipiZIDE [Glipizide] 10 mg PO DAILY 03/29/23 - Past Medical/Surgical History Diabetic: Yes -: Diabetes mellitus type 2, non-insulin dependent -: Hyperlipidemia -: Neuropathy -: Obstructive sleep apnea -: Asthma -: Osteoarthritis -: HTN -: PAD -: Left foot fx repair (pin in place) -: Left knee sx x7 -: tonsillectomy -: Right 1st and 2nd toe amputations -: hernia repair Psychosocial/ Personal History: Patient is - Family History Father -: Hypertension, Diabetes Sister -: Diabetes Mother -: Diabetes, Stroke Notes: breast - Social History Smoking Status: Former smoker (55 pack years, quit in 2019) Alcohol use: No CD- Drugs: No Caffeine use: Yes Review of Systems General: Unremarkable Eyes: Unremarkable ENT: Unremarkable Respiratory: Unremarkable Cardiovascular: Unremarkable Gastrointestinal: Unremarkable Genitourinary: Unremarkable Musculoskeletal: Foot Pain (right) Integumentary: Other (right foot wound) Neurological: Unremarkable Lymphatics: Unremarkable Physical Examination - Vital Signs Temperature: 98.1 F Blood Pressure: 114/67 Pulse: 87 Respirations: 18 Pulse Ox (%): 98 - Physical Exam General: Alert, In no apparent distress, Oriented x3 HEENT: Atraumatic, Mucous membr. moist/pink, Sclerae nonicteric Neck: JVD not distended Respiratory: Clear to auscultation bilaterally, Normal air movement Cardiovascular: No edema, Regular rate/rhythm, Normal S1 S2, No gallops, No rubs, No murmurs Gastrointestinal: Normal bowel sounds, Soft and benign, Non-distended, No tenderness, No rebound, No guarding Musculoskeletal: No clubbing, Other (S/p amputation of all 5 right toes) Integumentary: Diabetic ulcer (1 cm x 1 cm open wound on plantar aspect of right foot, just proximal to 4th/5th digits. Lesion has slight surrounding erythema, no purulence noted) Neurological: Normal speech, Normal affect - Studies Laboratory Data (last 24 hrs) 03/29/23 03/29/23 03/29/23 15:25 15:25 15:25 WBC 5.80 Hgb 13.9 Hct 44.5 Plt Count 133 L PT 10.7 INR 0.97 APTT 33.0 Sodium 135 L Potassium 4.6 BUN 28 H Creatinine 1.42 H Glucose 210 H Total Bilirubin 0.6 AST 37 ALT 50 Alkaline Phosphatase 59 Assessment and Plan - Plan # Infected Right Foot Diabetic Foot Ulcer with Streptococcus Cellulitis - Does not meet sepsis criteria - Evaluation: - Foot x-ray (03/27) = "midfoot amputation noted. Soft tissue wound is seen along the plantar aspect of the midfoot. No soft tissue gas seen. No evidence of osteomyelitis. Large plantar calcaneal spur." - Wound culture (03/27) = 4+ alpha Streptococcus - Consulted General Surgery and spoke with Dr. Velazquez - recommendations appreciated - Recommends MRI to evaluate for osteomyelitis - Consulted Infectious Diseases and spoke with NURSE PARALEGAL Danyell - recommendations appreciated - Continue vancomycin + levofloxacin - PRN pain control # KDIGO Stage II Acute Kidney Injury # Lactic Acidosis likely due to LILLIAM and Metformin Use - Creatinine = 1.42 (creatinine was 0.55 on 02/06/2022) - Urinalysis = pending - Started Lactated Ringers' @ 100 mL/hr - Monitor creatinine and urine output - If worsening, obtain renal ultrasound - Renally dose medications # Hyperglycemia in Type II Diabetes Mellitus complicated by Diabetic Neuropathy - Ordered Hgb A1c - Continue pregabalin - Correction scale insulin while hospitalized - Hold home semaglutide, empagliflozin, glipizide, metformin while hospitalized # Peripheral Arterial Disease complicated by Right Toe Amputations s/p Right Leg Stenting (2021) # Hypertension # Dyslipidemia - Continue home aspirin, atorvastatin, clopidogrel, atenolol # Gastroesophageal Reflux Disease - Continue home omeprazole # Seasonal Allergies - Continue home paulino Rodriguez M.D. - Advance Directives Does patient have a Living Will: No Does patient have a Durable POA for Healthcare: No
[2023-03-29] MEDS: INSULIN -REGULAR HUMAN 50 UNIT/0.5 ML ML SQ SCH ×2 (16:50→20:25)
[2023-03-29] MEDS ORDERED: MORPHINE 4 MG/ML SYR ONE (17:04)
[2023-03-29] MEDS ORDERED: ACETAMINOPHEN 325 MG TABLET PO PRN (18:23)
[2023-03-29] MEDS ORDERED: HOME MED 1 EA UNK (Cetirizine Hcl [Zyrtec] 10 MG Tablet) PO PRN (18:24)
[2023-03-29] MEDS ORDERED: CETIRIZINE HCL 5 MG TABLET PO PRN (18:30)
[2023-03-29] MEDS: VANCOMYCIN 2 GM in NA CHLORIDE 0.9% 500 ML IVPB SCH (18:45)
[2023-03-29] MEDS: Ringers Lactate 1,000 ML IV SCH (20:29)
[2023-03-29] MEDS: ATORVASTATIN 40 MG TAB PO SCH (20:30)
[2023-03-29] MEDS: PREGABALIN 150 MG CAP PO SCH (20:30)
[2023-03-29] MEDS: ENOXAPARIN 40 MG/0.4 ML SQ SCH (20:38)
[2023-03-29] MEDS ORDERED: HOME MED 1 EA UNK (Pregabalin [Lyrica] 100 MG Capsule) PO SCH (21:00)
[2023-03-29] MEDS: MORPHINE 2 MG/ML SYR IV PRN (21:45)
[2023-03-29 23:50] VITALS: BMI 38.0
[2023-03-30 04:10] LABS: Absolute Lymphocytes (CBC) 1.5 K/uL (0.7-4.9); Hematocrit 40.7 % (39.6-49.0); Lymphocytes % 29.9 % (15.3-44.8); MCV 78.3 fL (80-100); MPV 9.6 fL (7.6-11.3); Platelets 116 thou/uL (152-406)
[2023-03-30 04:31] LABS: Magnesium 1.6 mg/dL (1.6-2.4); Phosphorus 2.8 mg/dL (2.5-4.9); Potassium 3.7 mEq/L (3.5-5.1)
[2023-03-30] MEDS: MORPHINE 2 MG/ML SYR IV PRN ×3 (05:47→21:09)
[2023-03-30] MEDS: Ringers Lactate 1,000 ML IV SCH ×2 (05:47→15:06)
[2023-03-30] MEDS: atenoloL 50 MG TAB PO SCH (05:52)
[2023-03-30] MEDS ORDERED: HOME MED 1 EA UNK (Atenolol [Atenolol] 100 MG Tablet) PO SCH (06:00)
[2023-03-30] MEDS: INSULIN -REGULAR HUMAN 50 UNIT/0.5 ML ML SQ SCH ×4 (07:30→21:39)
[2023-03-30] MEDS ORDERED: MORPHINE 2 MG/ML SYR IM ONE (07:40)
[2023-03-30] MEDS: ENOXAPARIN 40 MG/0.4 ML SQ SCH (08:09)
[2023-03-30] MEDS: PANTOPRAZOLE 40MG TABLET PO SCH (08:09)
[2023-03-30] MEDS: PREGABALIN 150 MG CAP PO SCH ×2 (08:52→21:09)
[2023-03-30] MEDS ORDERED: HOME MED 1 EA UNK (Omeprazole [Omeprazole] 20 MG Tablet.Dr) PO SCH (09:00)
[2023-03-30] MEDS ORDERED: ASPIRIN EC 81 MG TAB PO SCH (09:00)
[2023-03-30] MEDS ORDERED: CLOPIDOGREL 75 MG TABLET PO SCH (09:00)
[2023-03-30] MEDS: COLLAGENASE 30 GM OINTMENT TOP SCH (10:45)
--- NOTE | 2023-03-30 12:53 | CON ---
Date of Consultation: 03/29/2023 History Of Present Illness: The patient is a 57-year-old gentleman, who I saw in the office last Sat with an infected wound on his right foot, which he has had in the past. He has a diabetic [facility] grade 3 probably at this time the wound was debrided, cultures were done, the patient was started on antibiotics and I advised him should his clinical condition worsen to go to the emergency room and be admitted for IV antibiotics, which happened yesterday because he had redness and increasing pain in the right foot. The patient was admitted and worked up and had elevated lactic acid and was start ed on antibiotics. X-ray had been done as an outpatient, which did not show evidence of osteo and MR I had been ordered, but has not been done yet. The patient is awake, alert, oriented x3. Denies any sore throat, runny nose, cough, headaches, or dizziness. No chest pain. No fever or chills systemi buzz, but foot feels warm. Review of Systems: Otherwise unremarkable. Past Medical History: Significant for diabetes type 2, hyperlipidemia, neuropathy, obstructive sleep apnea, asthma, hypertension, peripheral arterial disease. Past Surgical History: Left foot surgery, left knee surgery, tonsillectomy, right toe amputations, h ernia repair. Allergies: HYDROCODONE, AMOXICILLIN, AND CLAVULANIC ACID. Social History: The patient used smoke in the past, does not anymore, has a significant a pack year history. Does not drink alcohol. Family History: Significant for diabetes, stroke, and hypertension. Physical Examination: Vital Signs: Currently are stable. He is afebrile. General: He is awake, alert, and oriented x3. Head and Neck: No masses. Chest: Clear. Heart: S1 and S2. Abdomen: Soft. Extremities: Diminished dorsalis pedis and posterior tibial pulses. Neuro: Nonfocal. On the right plantar aspect of the foot, there is a wound of approximately 3.5 x 2 cm down to the subcutaneous tissue. No purulence surrounded, tender; however, slight warmth to it, and erythema. Laboratory Data: Reviewed. White count is 5.2. Chemistry reviewed. Again, lactic acid was elevate d at 2.4, back to 1.5 now. Hemoglobin A1c is 7.1. Assessment: A 57-year-old gentleman with diabetic ulcer probably a grade 3. Recommendation: Continue IV antibiotics as ordered. The cultures done in the office are growing out Strep. Once we get the sensitivity, we will adjust the antibiotics and we will get an MRI to see if the patient has osteo and make further recommendations after that. The wound care order has been gi dyan and we will treat the patient with collagenase and wet-to-dry. /MAYTE Voice ID: [id number] Report ID: [id number]
--- NOTE | 2023-03-30 13:42 | P.PN ---
Subjective Date of Service: 03/30/23 Chief Complaint: Cellulitis No acute events overnight. He reports that his right foot pain is significant this morning. He describes it as throbbing, and grades it a 5-6/10 in severity. He states that the morphine is working, but wears off within a few hours. He denies any fevers, chills, chest pain, or shortness of breath. Review of Systems 10-point ROS is otherwise unremarkable Musculoskeletal: Foot Pain (right) Physical Examination - Vital Signs Temperature: 97.2 F Blood Pressure: 111/62 Pulse: 78 Respirations: 18 Pulse Ox (%): 95 - Studies Laboratory Data (last 24 hrs) 03/29/23 03/29/23 03/29/23 15:25 15:25 15:25 WBC 5.80 Hgb 13.9 Hct 44.5 Plt Count 133 L PT 10.7 INR 0.97 APTT 33.0 Sodium 135 L Potassium 4.6 BUN 28 H Creatinine 1.42 H Glucose 210 H Total Bilirubin 0.6 AST 37 ALT 50 Alkaline Phosphatase 59 Assessment And Plan - Plan - Physical Exam General: Alert, In no apparent distress, Oriented x3 HEENT: Atraumatic, Mucous membr. moist/pink, Sclerae nonicteric Respiratory: Clear to auscultation bilaterally, Normal air movement Cardiovascular: No edema, Regular rate/rhythm, No murmurs Gastrointestinal: Normal bowel sounds, Soft, Non-distended, No tenderness Musculoskeletal: No clubbing, Other (S/p amputation of all 5 right toes) Integumentary: Diabetic ulcer (1 cm x 1 cm open wound on plantar aspect of right foot, just proximal to 4th/5th digits. Lesion has slight surrounding erythema, no purulence noted) Neurological: Normal speech, Normal affect # Infected Right Foot Diabetic Foot Ulcer with Multi-Drug Resistant Enterococcus Faecalis Cellulitis - Does not meet sepsis criteria - Evaluation: - Foot x-ray (03/27) = "midfoot amputation noted. Soft tissue wound is seen along the plantar aspect of the midfoot. No soft tissue gas seen. No evidence of osteomyelitis. Large plantar calcaneal spur." - Wound culture (03/27) = 4+ MDR E. Faecalis - Consulted General Surgery and spoke with Dr. Velazquez - recommendations appreciated - Recommends MRI to evaluate for osteomyelitis - but unable to obtain until 04/01/2023 - Consulted Infectious Diseases and spoke with [facility] Sgarbi - recommendations appreciated - Recommends continuing vancomycin and discontinuing levofloxacin - PRN pain control - increased morphine 2 mg q6hr PRN to 4 mg q4hr PRN # KDIGO Stage II Acute Kidney Injury # Lactic Acidosis likely due to LILLIAM and Metformin Use - Creatinine = 1.42 -> 1.08 (creatinine was 0.55 on 02/06/2022) - Urinalysis = pending - Started Lactated Ringers' @ 100 mL/hr - Monitor creatinine and urine output - If worsening, obtain renal ultrasound - Renally dose medications # Hyperglycemia in 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
[2023-03-30] MEDS: VANCOMYCIN 2 GM in NA CHLORIDE 0.9% 500 ML IVPB SCH (17:13)
[2023-03-30 18:37] LABS: Specific Gravity > 1.030 (1.005-1.030); Urine Bacteria None Seen /HPF (<20); Urine Bilirubin NEGATIVE (Negative); Urine Blood Negative (Negative); Urine Clarity Clear (Clear); Urine Color Colorless (Yellow); Urine Glucose 4+ (Over) (Negative); Urine Protein NEGATIVE (Negative); Urine RBC <5 /HPF (None Seen); Urine Urobilinogen Normal (Normal); Urine pH 5.5 (5.0-7.0)
[2023-03-30] MEDS: ATORVASTATIN 40 MG TAB PO SCH (21:09)
[2023-03-31] MEDS: MORPHINE 2 MG/ML SYR IV PRN ×4 (01:02→20:59)
[2023-03-31] MEDS: Ringers Lactate 1,000 ML IV SCH ×2 (01:02→08:29)
[2023-03-31] MEDS: atenoloL 50 MG TAB PO SCH (06:48)
[2023-03-31 07:12] LABS: Potassium 3.9 mEq/L (3.5-5.1)
[2023-03-31] MEDS: INSULIN -REGULAR HUMAN 50 UNIT/0.5 ML ML SQ SCH ×4 (07:30→20:59)
[2023-03-31] MEDS: PANTOPRAZOLE 40MG TABLET PO SCH (08:31)
[2023-03-31] MEDS: ENOXAPARIN 40 MG/0.4 ML SQ SCH (08:31)
[2023-03-31] MEDS: COLLAGENASE 30 GM OINTMENT TOP SCH (08:31)
[2023-03-31] MEDS: PREGABALIN 150 MG CAP PO SCH ×2 (08:31→20:59)
[2023-03-31] MEDS ORDERED: COLLAGENASE 30 GM OINTMENT TOP SCH (09:00)
--- NOTE | 2023-03-31 14:00 | PN ---
Date of Progress Note: 03/31/2023 Subjective: Patient is awake and alert. No new complaints. Still has some pain, but is getting bet ter. Objective: Vital Signs: Stable, afebrile. Skin: Redness is slightly improved. There is no purulent discharge. Assessment: Right foot infected wound. Recommendations: Continue IV antibiotics as ordered. Await MRI to rule out osteomyelitis. Based on that, I will make further recommendation for discharge. /MODL Voice ID: [id number] Report ID: [id number]
[2023-03-31] MEDS ORDERED: LEVOFLOXACIN 750MG/D5W 150 ML IV SCH (16:00)
--- NOTE | 2023-03-31 17:41 | P.PN ---
Subjective Date of Service: 03/31/23 Chief Complaint: Cellulitis No acute events overnight. He reports that his pain is well-controlled. He is pending an MRI right foot for tomorrow morning. He denies any fevers, chills, chest pain, or shortness of breath. Review of Systems 10-point ROS is otherwise unremarkable Musculoskeletal: Foot Pain (right) Physical Examination - Vital Signs Temperature: 97.4 F Blood Pressure: 136/77 Pulse: 69 Respirations: 18 Pulse Ox (%): 96 Assessment And Plan - Plan - Physical Exam General: Alert, In no apparent distress, Oriented x3 HEENT: Atraumatic, Sclerae nonicteric Respiratory: Clear to auscultation bilaterally, Normal air movement Cardiovascular: No edema, Regular rate/rhythm, No murmurs Gastrointestinal: Normal bowel sounds, Soft, Non-distended, No tenderness Musculoskeletal: No clubbing, Other (S/p amputation of all 5 right toes) Integumentary: Diabetic ulcer (covered in clean dressing) Neurological: Normal speech, Normal affect # Infected Right Foot Diabetic Foot Ulcer with Multi-Drug Resistant Enterococcus Faecalis Cellulitis - Does not meet sepsis criteria - Evaluation: - Foot x-ray (03/27) = "midfoot amputation noted. Soft tissue wound is seen along the plantar aspect of the midfoot. No soft tissue gas seen. No evidence of osteomyelitis. Large plantar calcaneal spur." - Wound culture (03/27) = 4+ MDR E. Faecalis - Consulted General Surgery and spoke with Dr. Velazquez - recommendations appreciated - Recommends MRI to evaluate for osteomyelitis - but unable to obtain until 04/01/2023 - Consulted Infectious Diseases - recommendations appreciated - Recommends continuing vancomycin - PRN pain control # KDIGO Stage II Acute Kidney Injury # Lactic Acidosis likely due to LILLIAM and Metformin Use - Creatinine = 1.42 -> 1.08 -> 0.90 (creatinine was 0.55 on 02/06/2022) - Urinalysis = 4+ glucosuria - Started Lactated Ringers' @ 100 mL/hr - Monitor creatinine and urine output - If worsening, obtain renal ultrasound - Renally dose medications # Hyperglycemia in Type II Diabetes Mellitus complicated by Diabetic Neuropathy - Hgb A1c = 7.1 % - Continue pregabalin - Correction scale insulin while hospitalized - Hold home semaglutide, empagliflozin, glipizide, metformin while hospitalized # Peripheral Arterial Disease complicated by Right Toe Amputations s/p Right Leg Stenting (2021) # Hypertension # Dyslipidemia - Continue home atorvastatin, atenolol - Hold home aspirin, clopidogrel in case surgery is required # Gastroesophageal Reflux Disease - Continue home omeprazole # Seasonal Allergies - Continue home cetirizine Nickolas Rodriguez M.D.
[2023-03-31] MEDS: VANCOMYCIN 2 GM in NA CHLORIDE 0.9% 500 ML IVPB SCH (17:58)
--- NOTE | 2023-03-31 19:01 | P.PN ---
Date of Service: 04/01/23 Subjective: ROS: 10 point ROS as noted above, otherwise negative Physical Exam: Gen: Alert, Oriented, NAD HEENT: normal conjunctiva, sclera anicteric CV: regular rate & rhythm, no edema Pulm: non-labored respirations on room air Abd: soft, nontender, nondistended MSK: S/p amputation of all 5 right toes Integumentary: Diabetic foot ulcer with dressing in place c/d/i Neuro: normal speech, normal affect Problem List: 1. Diabetic Foot Ulcer with MDR Enterococcus Faecalis Cellulitis 2. KDIGO Stage II Acute Kidney Injury 3. Lactic Acidosis likely due to LILLIAM and Metformin Use 4. DM2 with neuropathy 5. Peripheral Arterial Disease complicated by Right Toe Amputations s/p Right Leg Stenting (2021) 6. Hypertension 7. Dyslipidemia 8.GERD 9. Seasonal Allergies PLAN Wound cx(03/27): 4+ MDR E. Faecalis General Surgery consulted MRI ordered ID consulted Contineu vancomycin PRN pain medication Started Lactated Ringers' @ 100 mL/hr Monitor renal function If worsening, obtain renal ultrasound Renally dose medications Continue pregabalin Sliding scale insulin Hold home semaglutide, empagliflozin, glipizide, metformin Continue home atorvastatin, atenolol Hold home aspirin, clopidogrel in case surgery is required Continue home omeprazole continue home cetirizine VTE: Lovenox Code: Full Dispo: Home
[2023-03-31] MEDS: ATORVASTATIN 40 MG TAB PO SCH (20:59)
[2023-04-01] MEDS: Ringers Lactate 1,000 ML IV SCH ×3 (00:55→17:00)
[2023-04-01] MEDS: MORPHINE 2 MG/ML SYR IV PRN ×4 (00:57→20:57)
[2023-04-01] MEDS: atenoloL 50 MG TAB PO SCH (05:57)
[2023-04-01 06:31] LABS: Potassium 4.4 mEq/L (3.5-5.1)
--- NOTE | 2023-04-01 08:31 | RAD REPORT ---
EXAM DESCRIPTION: MRI - Foot Right Wo Cont - 04/01/2023 8:19 am CLINICAL HISTORY: eval for osteomyelitis COMPARISON: Foot Right Wo Cont dated 02/05/2022; Foot Right Wo Cont dated 08/10/2020; Foot Right Wo C ont dated 12/08/2018; Foot Right Wo Cont dated 10/20/2018 TECHNIQUE Multisequence MR obtained of the right foot using osteomyelitis protocol without contrast FINDINGS: Surgical changes from partial amputation of the right foot at the level of the distal meta tarsals. Wound along the dorsum of the foot subjacent to the first metatarsal. No evidence of underly ing osteomyelitis. No abscess identified. No acute fracture. IMPRESSION: No MRI evidence of osteomyelitis or abscess.
[2023-04-01] MEDS: ENOXAPARIN 40 MG/0.4 ML SQ SCH (09:00)
[2023-04-01] MEDS: PREGABALIN 150 MG CAP PO SCH ×2 (09:00→20:55)
[2023-04-01] MEDS: PANTOPRAZOLE 40MG TABLET PO SCH (09:00)
[2023-04-01] MEDS: INSULIN -REGULAR HUMAN 50 UNIT/0.5 ML ML SQ SCH ×4 (09:01→20:56)
[2023-04-01] MEDS: VANCOMYCIN 2 GM in NA CHLORIDE 0.9% 500 ML IVPB SCH (13:10)
[2023-04-01] MEDS: COLLAGENASE 30 GM OINTMENT TOP SCH (13:24)
--- NOTE | 2023-04-01 16:31 | P.CNS ---
Date of Consult: 04/01/23 Reason for Consult: cellulitis RLE Chief Complaint: Cellulitis History of Present Illness: Patient is a 57 yo male with a past medical history of hypertension, type II diabetes mellitus, diabetic neuropathy, peripheral arterial disease s/p right leg stenting, hx right toe amputations who presented to the ED with complaints of right foot pain and nonhealing wound. Allergies hydrocodone [From Vicodin] Allergy (Verified 01/29/19 10:07) Unknown amoxicillin [From Augmentin] Adverse Reaction (Verified 03/29/23 17:55) clavulanic acid [From Augmentin] Adverse Reaction (Verified 03/29/23 17:55) Home Medications: Metformin ER [Glucophage ER*] 500 mg PO BID 10/19/18 Omeprazole 40 mg PO DAILY 10/19/18 Pregabalin [Lyrica] 150 mg PO BID 10/19/18 atenoloL [Atenolol] 100 mg PO [id number] 10/19/18 Aspirin [Aspirin EC 81 MG] 81 mg PO DAILY 02/03/22 Atorvastatin Calcium [Lipitor] 40 mg PO BEDTIME 02/03/22 Clopidogrel Bisulfate [Plavix*] 75 mg PO DAILY 02/03/22 Anastrozole [Arimidex] 0.25 mg PO EVERY 7TH DAY 03/29/23 Cetirizine HCl [Zyrtec] 10 mg PO DAILY PRN 03/29/23 Empagliflozin [Jardiance] 25 mg PO DAILY 03/29/23 Ferrous Sulfate [Iron] 325 mg PO DAILY 03/29/23 Semaglutide [Ozempic] 0.5 mg SQ EVERY 7TH DAY 03/29/23 glipiZIDE [Glipizide] 10 mg PO DAILY 03/29/23 - Past Medical/Surgical History Diabetic: Yes -: Diabetes mellitus type 2, non-insulin dependent -: Hyperlipidemia -: Neuropathy -: Obstructive sleep apnea -: Asthma -: Osteoarthritis -: HTN -: PAD -: CAD -: BPH -: chronic back pains -: CHF -: Left foot fx repair (pin in place) -: Left knee sx x7 -: tonsillectomy -: Right foot toes amputation -: hernia repair Psychosocial/ Personal History: Patient is - Family History Father Medical History: Hypertension, Diabetes Sister Medical History: Diabetes Mother Medical History: Diabetes, Stroke Notes: breast - Social History Smoking Status: Current every day smoker Alcohol use: Yes CD- Drugs: No Caffeine use: Yes Place of Residence: Home Review of Systems 10-point ROS is otherwise unremarkable Musculoskeletal: Foot Pain (right foot) Integumentary: As per HPI Physical Examination Temp Pulse Resp BP Pulse Ox 97.0 F 64 16 126/73 95 04/01/23 12:00 04/01/23 12:00 04/01/23 13:05 04/01/23 12:00 04/01/23 13:05 General: Alert, In no apparent distress, Oriented x3, Obese HEENT: Atraumatic, Normocephalic Neck: Supple, JVD not distended Respiratory: Clear to auscultation bilaterally, Normal air movement (on room air) Cardiovascular: Regular rate/rhythm Gastrointestinal: Normal bowel sounds, No tenderness Musculoskeletal: Other (s/p right toe amputations ) Integumentary: Diabetic ulcer (right plantar foot) Neurological: Normal speech, Normal tone, Normal affect Laboratory Data - Reviewed Microbiology Data - Reviewed Imagings Data: - Reviewed Conclusions/Impression: Problem List type II diabetes mellitus diabetic neuropathy Diabetic foot ulcer right foot peripheral arterial disease s/p stent placement right leg Hx osteomyelitis s/p right transmetarsal amputation hypertension dyslipidemia gastroesophageal reflux disease Diabetic Foot Ulcer of Right Foot - Began 6 weeks ago as a callus, which has been worsening since. - History of osteomyelitis of right foot s/p transmetatarsal amputation. - No leukocytosis. Afebrile. - Blood cultures 03/29: No growth to date - MRI right foot 04/01: "No MRI evidence of osteomyelitis or abscess" - Right foot wound culture 03/27: Enterococcus faecalis - On Vancomycin (started 04/01) Recommendations - Due to wound cultures with E. faecalis, history of osteomyelitis s/p transmetatarsal amputation and history of MRSA, patient was started on Vancomycin IV. Patient would benefit from continued IV Vancomycin for 10-14 days. - Continue wound care per Dr. Velazquez - Strict blood glucose control Case discussed with Bhupendra Botello
[2023-04-01] MEDS: Mupirocin NASAL 2 APPL/1 GM TUBE NAS SCH (20:56)
[2023-04-01] MEDS: ATORVASTATIN 40 MG TAB PO SCH (20:56)
[2023-04-01 23:03] VITALS: O2SAT 97
[2023-04-02] MEDS: Ringers Lactate 1,000 ML IV SCH ×3 (01:00→20:47)
[2023-04-02] MEDS: MORPHINE 2 MG/ML SYR IV PRN ×5 (01:01→20:49)
[2023-04-02] MEDS: VANCOMYCIN 2 GM in NA CHLORIDE 0.9% 500 ML IVPB SCH ×2 (05:44→23:23)
[2023-04-02] MEDS: atenoloL 50 MG TAB PO SCH (05:45)
[2023-04-02] MEDS: INSULIN -REGULAR HUMAN 50 UNIT/0.5 ML ML SQ SCH ×4 (07:30→20:48)
[2023-04-02] MEDS: ENOXAPARIN 40 MG/0.4 ML SQ SCH (08:49)
[2023-04-02] MEDS: PREGABALIN 150 MG CAP PO SCH ×2 (08:49→20:48)
[2023-04-02] MEDS: PANTOPRAZOLE 40MG TABLET PO SCH (08:49)
[2023-04-02] MEDS: Mupirocin NASAL 2 APPL/1 GM TUBE NAS SCH ×2 (08:49→20:48)
[2023-04-02] MEDS: COLLAGENASE 30 GM OINTMENT TOP SCH (08:50)
--- NOTE | 2023-04-02 09:01 | P.PN ---
Date of Service: 04/02/23 Chief Complaint: Cellulitis Subjective: Improving. Patient seen and examined at bedside. Denies any new or worsening complaints. No acute events reported overnight. Physical Examination Temp Pulse Resp BP Pulse Ox 97.0 F 67 14 122/70 97 04/02/23 08:00 04/02/23 08:00 04/02/23 08:00 04/02/23 08:00 04/02/23 08:00 General: Alert, In no apparent distress, Oriented x3, Obese HEENT: Atraumatic, Normocephalic Neck: Supple, JVD not distended Respiratory: Clear to auscultation bilaterally, Normal air movement. On room air. Cardiovascular: Regular rate/rhythm Gastrointestinal: Normal bowel sounds, No tenderness Musculoskeletal: hx right transmetarsal amputations r Integumentary: Diabetic ulcer of right plantar foot Neurological: Normal speech, Normal tone, Normal affect Laboratory Data - Reviewed Microbiology Data - Reviewed Imagings Data: - Reviewed Medications List: Reviewed Assessment and Plan Problem List type II diabetes mellitus diabetic neuropathy Diabetic foot ulcer right foot peripheral arterial disease s/p stent placement right leg Hx osteomyelitis s/p right transmetarsal amputation hypertension dyslipidemia gastroesophageal reflux disease Diabetic Foot Ulcer of Right Foot - Began 6 weeks ago as a callus, which has been worsening since. - History of osteomyelitis of right foot s/p transmetatarsal amputation. - No leukocytosis. Afebrile. - Blood cultures 03/29: No growth to date - MRI right foot 04/01: "No MRI evidence of osteomyelitis or abscess" - Right foot wound culture 03/27: Enterococcus faecalis - Due to wound cultures with E. faecalis, history of osteomyelitis s/p transmetatarsal amputation and history of MRSA, patient was started on Vancomycin IV 04/01. Recommendations - Continue IV Vancomycin for 14 days (04/01-04/15). PICC line placement pending. - Follow up with Dr. Velazquez as outpatient - Strict blood glucose control Case discussed with Bhupendra Botello
--- NOTE | 2023-04-02 10:21 | P.PN ---
Date of Service: 04/02/23 Subjective: Patient feels better. Objective: Vital signs stable, afebrile Right foot: Dressing is clean dry and intact, no evidence of redness Assessment: Infected diabetic wound right foot with cellulitis Plan: IV antibiotics and wound care as ordered. Patient to get a PICC line for 2 weeks of IV antibiotics and patient can follow-up with me in the wound healing center upon discharge. CC:
--- NOTE | 2023-04-02 19:00 | RAD REPORT ---
EXAM DESCRIPTION: RAD - Chest Single View - 04/02/2023 6:42 pm CLINICAL HISTORY: picc line placement COMPARISON: Chest Single View dated 02/04/2022; Chest Pa And Lat (2 Views) dated 01/29/2019; Chest Sin gle View dated 10/22/2018; Chest Single View dated 01/14/2017 FINDINGS: Portable chest was obtained following placement of a right upper extremity PICC line. The catheter tip projects over the SVC.
[2023-04-02] MEDS: ATORVASTATIN 40 MG TAB PO SCH (20:48)
[2023-04-03] MEDS: atenoloL 50 MG TAB PO SCH (05:27)
[2023-04-03] MEDS: Ringers Lactate 1,000 ML IV SCH (05:28)
[2023-04-03] MEDS: MORPHINE 2 MG/ML SYR IV PRN ×3 (05:29→13:40)
[2023-04-03 05:56] LABS: Potassium 3.8 mEq/L (3.5-5.1)
[2023-04-03] MEDS: ENOXAPARIN 40 MG/0.4 ML SQ SCH (09:00)
[2023-04-03] MEDS: PANTOPRAZOLE 40MG TABLET PO SCH (09:26)
[2023-04-03] MEDS: PREGABALIN 150 MG CAP PO SCH (09:26)
[2023-04-03] MEDS: INSULIN -REGULAR HUMAN 50 UNIT/0.5 ML ML SQ SCH ×2 (09:27→12:33)
[2023-04-03] MEDS: Mupirocin NASAL 2 APPL/1 GM TUBE NAS SCH (09:27)
[2023-04-03] MEDS: COLLAGENASE 30 GM OINTMENT TOP SCH (09:28)
--- NOTE | 2023-04-03 09:44 | P.PN ---
Date of Service: 04/03/23 Chief Complaint: Cellulitis Subjective: No acute events reported overnight. Patient reports he is doing well. Denies any new or worsening complaints. Continue current plan of care. Physical Examination Temp Pulse Resp BP Pulse Ox 96.5 F L 64 16 144/86 H 94 04/03/23 04:00 04/03/23 05:27 04/03/23 05:59 04/03/23 05:27 04/03/23 05:59 General: Alert, In no apparent distress, Oriented x3, Obese HEENT: Atraumatic, Normocephalic Neck: Supple, JVD not distended Respiratory: Clear to auscultation bilaterally, Normal air movement. On room air. Cardiovascular: Regular rate/rhythm Gastrointestinal: Normal bowel sounds, No tenderness Musculoskeletal: hx right transmetarsal amputations r Integumentary: Diabetic ulcer of right plantar foot Neurological: Normal speech, Normal tone, Normal affect Laboratory Data - Reviewed Microbiology Data - Reviewed Imagings Data: - Reviewed Medications List: Acetaminophen (Acetaminophen 325 Mg Tablet) 650 mg PO Q6H PRN PRN Reason: Pain scale 2-4 (Mild) Atenolol (Atenolol 50 Mg Tab) 100 mg PO [id number] [facility] Last Admin: 04/03/23 05:27 Dose: 100 mg Atorvastatin Calcium (Atorvastatin 40 Mg Tab) 40 mg PO BEDTIME [facility] Last Admin: 04/02/23 20:48 Dose: 40 mg Cetirizine HCl (Cetirizine Hcl 5 Mg Tablet) 10 mg PO DAILY PRN PRN Reason: ALLERGIES Last Admin: 04/01/23 08:59 Dose: 10 mg Collagenase (Collagenase 30 Gm Ointment) 1 appl TOP DAILY [facility] Last Admin: 04/03/23 09:28 Dose: 1 appl Enoxaparin Sodium (Enoxaparin 40 Mg/0.4 Ml) 40 mg SQ DAILY [facility] Last Admin: 04/03/23 09:00 Dose: Not Given Vancomycin HCl 2 gm/ Sodium (Chloride) 500 mls @ 250 mls/hr IVPB Q18H [facility] Last Admin: 04/02/23 23:23 Dose: Not Given Insulin Human Regular (Insulin -Regular Human 50 Unit/0.5 Ml Ml) 0 unit SQ ACHS [facility]; Protocol Last Admin: 04/03/23 09:27 Dose: 2 unit Morphine Sulfate (Morphine 2 Mg/Ml Syr) 4 mg IV Q4H PRN PRN Reason: Pain scale 8-10 (Severe) Last Admin: 04/03/23 09:26 Dose: 4 mg Mupirocin (Mupirocin Nasal 2 Appl/1 Gm Tube) 1 appl TOI BID [facility] Stop: 04/06/23 09:01 Last Admin: 04/03/23 09:27 Dose: 1 appl Pantoprazole Sodium (Pantoprazole 40mg Tablet) 40 mg PO DAILY [facility] Last Admin: 04/03/23 09:26 Dose: 40 mg Pregabalin (Pregabalin 150 Mg Cap) 150 mg PO BID [facility] Last Admin: 04/03/23 09:26 Dose: 150 mg Assessment and Plan Problem List type II diabetes mellitus diabetic neuropathy Diabetic foot ulcer right foot peripheral arterial disease s/p stent placement right leg Hx osteomyelitis s/p right transmetarsal amputation hypertension dyslipidemia gastroesophageal reflux disease Diabetic Foot Ulcer of Right Foot - Began 6 weeks ago as a callus, which has been worsening since. - History of osteomyelitis of right foot s/p transmetatarsal amputation. - No leukocytosis. Afebrile. - Blood cultures 03/29: No growth to date - MRI right foot 04/01: "No MRI evidence of osteomyelitis or abscess" - Right foot wound culture 03/27: Enterococcus faecalis - Due to wound cultures with E. faecalis, history of osteomyelitis s/p transmetatarsal amputation and history of MRSA, patient was started on Vancomycin IV 04/01. Recommendations - Continue IV Vancomycin for 14 days (04/01-04/15). - PICC line placed 04/02 - Follow up with Dr. Velazquez as outpatient - Strict blood glucose control Case discussed with Bhupendra Botello
[2023-04-03 10:01] VITALS: BP 145/75; TEMP 97.6
== END 2023-04-03 15:00 | disposition home or self-care (01) | DRG 603 ==
LOC: ER 14:48 → ERHOLD 16:43 → 4TH 19:34
PROVIDERS: ADMIT Internal Medicine; ATTEND Hospitalist
PROC: 02HV33Z Insertion of Infusion Device into Superior Vena Cava, Percutaneous Approach (ICD-10-PCS; principal; 2023-04-02)
DX: L03.115 Cellulitis of right lower limb (principal); N17.9 Acute kidney failure, unspecified; E87.20 Acidosis, unspecified; Z16.20 Resistance to unspecified antibiotic; K21.9 Gastro-esophageal reflux disease without esophagitis; E78.00 Pure hypercholesterolemia, unspecified; I10 Essential (primary) hypertension; E11.40 Type 2 diabetes mellitus with diabetic neuropathy, unspecified; E11.51 Type 2 diabetes mellitus with diabetic peripheral angiopathy without gangrene; E11.65 Type 2 diabetes mellitus with hyperglycemia; E11.621 Type 2 diabetes mellitus with foot ulcer; L97.519 Non-pressure chronic ulcer of other part of right foot with unspecified severity; J45.909 Unspecified asthma, uncomplicated; F17.200 Nicotine dependence, unspecified, uncomplicated; B95.5 Unspecified streptococcus as the cause of diseases classified elsewhere; T38.3X5A Adverse effect of insulin and oral hypoglycemic [antidiabetic] drugs, initial encounter; Z88.5 Allergy status to narcotic agent; Z88.1 Allergy status to other antibiotic agents; Z79.82 Long term (current) use of aspirin; Z79.84 Long term (current) use of oral hypoglycemic drugs; Z79.02 Long term (current) use of antithrombotics/antiplatelets; Z79.899 Other long term (current) drug therapy; Z89.421 Acquired absence of other right toe(s)
CPT/HCPCS: 36415; 36569; 71045; 80048; 80053; 80202; 81001; 82947; 83036; 83605; 83735; 84100; 85025; 85610; 85730; 87040; 96361; 96365; 96366; 96375; 99285; J1650; J1815; J2270; J3590; J7030; J7040; J7120

== ENCOUNTER 2023-08-02 05:51 | Day surgery (SDC) | payer BC ==
[2023-07-29 11:33] LABS: Absolute Lymphocytes (CBC) 0.8 K/uL (0.7-4.9); Hematocrit 43.3 % (39.6-49.0); Lymphocytes % 14.5 % (15.3-44.8); MCV 82.2 fL (80-100); MPV 9.9 fL (7.6-11.3); Platelets 142 thou/uL (152-406); RBC Red Blood Cell Count 5.27 M/uL (4.33-5.43)
[2023-07-29 11:36] LABS: Protime INR 0.94
[2023-07-29 11:45] LABS: Potassium 4.6 mEq/L (3.5-5.1)
--- NOTE | 2023-07-29 13:26 | RAD REPORT ---
EXAM DESCRIPTION: RAD - Chest Pa And Lat (2 Views) - 07/29/2023 11:26 am CLINICAL HISTORY: Pre op pending rotator cuff repair. Hypertension, diabetes COMPARISON: Chest Single View dated 04/02/2023; Chest Single View dated 02/04/2022; Chest Pa And Lat ( 2 Views) dated 01/29/2019; Chest Single View dated 10/22/2018 TECHNIQUE: PA and lateral views of the chest were obtained. FINDINGS: The lungs are clear. Heart size is normal and central vasculature is within normal limits. No pleural effusion or pneumothorax seen. No acute bony finding noted. IMPRESSION: No acute cardiopulmonary process.
[2023-07-29 17:28] LABS: SARS-CoV-2 Antigen Rapid Res Negative (Negative)
[2023-08-02] MEDS ORDERED: CEFAZOLIN SODIUM 2 GM/VIAL ONE (06:02)
[2023-08-02] MEDS ORDERED: Ringers Lactate 1,000 ML IV ONE (06:02)
[2023-08-02] MEDS ORDERED: LIDOCAINE 2% MPF 5 ML VIAL ONE (06:36)
[2023-08-02] MEDS ORDERED: MIDAZOLAM HCL 2 MG/2 ML INJ ONE (06:36)
[2023-08-02] MEDS ORDERED: ROCURONIUM 50 MG/5 ML VIAL IV ONE (06:36)
[2023-08-02] MEDS ORDERED: ONDANSETRON 4 MG/2 ML VIAL ONE (06:36)
[2023-08-02] MEDS ORDERED: propofoL 200 MG/20 ML VIAL IV ONE (06:36)
[2023-08-02] MEDS ORDERED: FENTANYL CITR 100 MCG/2 ML ONE (06:36)
[2023-08-02] MEDS ORDERED: EPINEPHRINE 1 MG/ML VIAL ONE ×2 (06:45→07:43)
[2023-08-02] MEDS ORDERED: LIDOCAINE 1% MPF 5 ML VIAL ONE (06:45)
[2023-08-02] MEDS ORDERED: dexAMETHasone 4 MG/ML VIAL ONE (06:46)
[2023-08-02] MEDS ORDERED: Phenylephrine HCl 10 MG/ML 1 ML VIAL ONE (08:41)
[2023-08-02] MEDS ORDERED: 0.9 % SODIUM CHLORIDE 0 ML IV ONE (09:30)
[2023-08-02] MEDS ORDERED: KETOROLAC 30 MG/ML INJ ONE (09:34)
[2023-08-02] MEDS ORDERED: NA CHLORIDE 0.9% 1,000 ML ONE (09:59)
--- NOTE | 2023-08-02 10:07 | P.BOP ---
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
--- NOTE | 2023-08-02 10:14 | P.OP ---
Preoperative diagnosis: Left shoulder rotator cuff tear, biceps tendinitis, impingement syndrome Postoperative diagnosis: Same, left shoulder SLAP tear Primary procedure: left shoulder arthroscopic rotator cuff repair Secondary procedure: left shoulder SLAP debridement with biceps tenotomy Other procedure(s): left shoulder arthroscopic subacromial decompression Anesthesia: General Estimated blood loss: 5 cc Specimen: None Findings: see dictation Operative Technique: Indication For Procedure: The patient is a 57-year-old male who presented to my clinic with signs, symptoms, and MRI findings consistent with a left shoulder rotator cuff tear. The patient had failed conservative treatment measures including corticosteroid injections. I discussed with the patient risks and benefits associated with operative and nonoperative treatment. He expressed understanding and elected to proceed with operative treatment. Description Of Procedure: After informed consent was obtained, the patient was identified in the preoperative holding area. The left upper extremity was marked. The patient then was brought to the PACU where he underwent a left- sided interscalene block performed by Anesthesia. The patient was brought back to the operating room, transferred to the operative table in supine fashion, placed under general endotracheal anesthesia. He was then placed in a beach chair position with his extremities well padded. The left upper extremity was then prepped and draped in usual sterile fashion. A time-out was initiated. The correct patient and procedure were performed and identified. The patient did receive preoperative prophylactic antibiotics. Via the posterior portal position, a spinal needle was introduced in the glenohumeral joint and the shoulder was injected with 30 cc of normal saline to distend the capsule. A stab incision was made posteriorly and a posterior portal was created. Arthroscope was brought in via the posterior portal position and diagnostic arthroscopy was performed. Under direct visualization, an anterior portal and cannula were created. The patient was noted to have a type 2 SLAP tear, which was debrided using the arthroscopic shaver. There was mild fraying annd tenosynovitis of the bicipital tendon both intra-articular and extra-articular. Subscapularis was found to be stable and intact to probe. There were no loose bodies within the axillary pouch. The patient was noted to have a full- thickness tear of the anterior aspect of the supraspinatus. A lateral portal was created and an arthroscopic shaver was then used to debride the anterior aspect of the greater tuberosity to create a bleeding bony bed. The undersurface of the rotator cuff tear was also debrided using the arthroscopic shaver to remove any unhealthy tissue. The arthroscope was then brought in the subacromial space. A subacromial bursectomy was performed using arthroscopic shaver. The patient was noted to have an anterior full-thickness tear without retraction. Fibertape sutures were then passed through the rotator cuff tear in anterior-posterior fashion in an inverted horizontal mattress fashion. The suture lines were then brought together and a single lateral Arthrex SwiveLock anchors was placed for reduction onto the greater tuberosity of the rotator cuff tendon. The remaining suture limbs were then cut. There was some significant fraying of a coracoacromial ligament as well as some undersurface spurring of the acromion and acromioplasty was performed using a radiofrequency ablator and an arthroscopic bur. Arthroscopic instruments were then removed without complication. Wounds were then irrigated thoroughly with normal saline. Subcutaneous tissue was approximated using a 2-0 Vicryl. Portals were approximated using a 3-0 Monocryl. Sterile dressings were applied. Shoulder immobilizer was placed. The patient was awakened and transferred to PACU in st able condition. Postoperative Plan: The patient will be nonweightbearing in a shoulder immobilizer for 6 weeks. We will follow the medium rotator cuff repair protocol 3 weeks postoperatively. Complications: None Implants: 4.75 mm Arthrex swivel lock Fluids & blood products: Per anesthesia record Transferred to: Recovery Room Condition: Good
[2023-08-02 10:29] VITALS: O2SAT 96
--- NOTE | 2023-08-02 10:29 | RAD REPORT ---
EXAM DESCRIPTION: RAD - Shoulder 1 View - 08/02/2023 10:18 am CLINICAL HISTORY: shoulder surgery FINDINGS: Frontal view of the shoulder was obtained. No fracture or dislocation is seen. Postsurgical changes left shoulder.
[2023-08-02] MEDS ORDERED: CODEINE 30MG/APAP 300MG TAB ONE (10:49)
[2023-08-02 11:25] VITALS: BP 136/73; TEMP 97.3
== END 2023-08-02 11:35 | disposition home or self-care (01) ==
LOC: OR 05:51
PROVIDERS: ATTEND Orthopaedic Surgery Sports Medicine
PROC: 0RNK4ZZ Release Left Shoulder Joint, Percutaneous Endoscopic Approach (ICD-10-PCS; 2023-08-02)
PROC: 0LM24ZZ Reattachment of Left Shoulder Tendon, Percutaneous Endoscopic Approach (ICD-10-PCS; 2023-08-02)
PROC: 0LM24ZZ Reattachment of Left Shoulder Tendon, Percutaneous Endoscopic Approach (ICD-10-PCS; 2023-08-02)
PROC: 0LM24ZZ Reattachment of Left Shoulder Tendon, Percutaneous Endoscopic Approach (ICD-10-PCS; principal; 2023-08-02 08:00)
DX: M75.112 Incomplete rotator cuff tear or rupture of left shoulder, not specified as traumatic (principal); M75.22 Bicipital tendinitis, left shoulder; M75.42 Impingement syndrome of left shoulder
CPT/HCPCS: 29827; 29826; 29822; 85025; 80048; 36415; 85610; 82947 ×2; 85730; 71046; 73020; 87811; J2704; J1100; J2001 ×2; J2371; J2250; J3010; J0171 ×2; J2405; J7120; J7030

== ENCOUNTER 2023-10-16 10:35 | Day surgery (SDC) | payer BC ==
[2023-10-16 08:54] LABS: Absolute Eosinophils 0.2 K/uL (0-0.5); Absolute Lymphocytes (CBC) 1.4 K/uL (0.7-4.9); Absolute Monocytes 0.5 K/uL (0.1-1.3); Absolute Neutrophil 2.9 K/uL (1.8-8.0); Eosinophils % 3.3 % (0-4.4); Hematocrit 44.2 % (39.6-49.0); Hemoglobin 14.9 g/dL (13.6-17.9); MCH 28.7 pg (27.0-35.0); MCHC 33.8 g/dL (32.0-36.0); MCV 84.7 fL (80-100); MPV 9.8 fL (7.6-11.3); Monocytes % 10.3 % (3.3-12.3); Neutrophils % 58.4 % (41.7-73.7); Platelets 156 thou/uL (152-406); RBC Red Blood Cell Count 5.22 M/uL (4.33-5.43); Red Cell Distribution Width 15.8 % (12.1-15.2)
[2023-10-16 09:12] LABS: Anion Gap 8.5 mEq/L (5.0-15.0); Potassium 4.5 mEq/L (3.5-5.1)
[2023-10-16] MEDS ORDERED: HEPA 1000U/500MLS 2,000 UNIT/1,000 ML BAG IV ONE (10:46)
[2023-10-16] MEDS ORDERED: NA CHLORIDE 0.9% 500 ML ONE (10:46)
[2023-10-16] MEDS ORDERED: FENTANYL CITR 100 MCG/2 ML ONE ×3 (10:47→15:22)
[2023-10-16] MEDS ORDERED: MIDAZOLAM HCL 2 MG/2 ML INJ ONE (10:47)
[2023-10-16] MEDS ORDERED: LIDOCAINE 1% 20 ML MDV ONE (10:47)
[2023-10-16] MEDS ORDERED: HEPARIN 10,000 UNIT/10 ML VIAL IV ONE (10:47)
[2023-10-16] MEDS ORDERED: NALOXONE 0.4 MG/ML VIAL ONE (10:47)
[2023-10-16] MEDS ORDERED: FLUMAZENIL 0.1 MG/ML (5 mL VIAL) IV ONE (10:48)
[2023-10-16] MEDS ORDERED: METOPROLOL TARTRATE 5 MG/5 ML INJ IV ONE (12:27)
[2023-10-16] MEDS ORDERED: LABETALOL 20 MG/4ML SYRINGE IV ONE (12:45)
[2023-10-16 17:51] VITALS: BP 130/78; O2SAT 98
== END 2023-10-16 17:35 | disposition home or self-care (01) ==
LOC: CCL 10:35
PROVIDERS: ATTEND Radiology Diagnostic Radiology
DX: I70.234 Atherosclerosis of native arteries of right leg with ulceration of heel and midfoot (principal); I70.92 Chronic total occlusion of artery of the extremities; E11.51 Type 2 diabetes mellitus with diabetic peripheral angiopathy without gangrene; I10 Essential (primary) hypertension; E78.5 Hyperlipidemia, unspecified; G47.30 Sleep apnea, unspecified; J45.909 Unspecified asthma, uncomplicated; N40.0 Benign prostatic hyperplasia without lower urinary tract symptoms; Z79.84 Long term (current) use of oral hypoglycemic drugs; Z88.0 Allergy status to penicillin; Z88.5 Allergy status to narcotic agent
CPT/HCPCS: 85025; 80048; 36415; 82947; 37224; 37228; 76937; C1893; C1725; C1769; J2001; J2250; J3010 ×3; J7040; 36200; 36245; 99152; 99153; J2310

== ENCOUNTER → 2023-11-04 | Day surgery (SDC) | payer BC ==
[~2023-11-04] MED LIST changes: +CEFAZOLIN SODIUM 1 GM/VIAL ONE; +EPHEDRINE SULF 50 MG/ML VIAL ONE; +FENTANYL CITR 100 MCG/2 ML ONE; +GLYCOPYRROLATE 0.2 MG/ML SYR ONE; +LIDOCAINE 2% MPF 5 ML VIAL ONE; +MIDAZOLAM HCL 2 MG/2 ML INJ ONE; +NEOSTIGMINE 1 MG/ML -10 ML VIAL ONE; +ONDANSETRON 4 MG/2 ML VIAL ONE; +TRAMADOL 37.5mg/APAP 325mg PER TAB PO PRN; -TRANEXAMIC ACID 1,000 MG in NA CHLORIDE 0.9% 50 ML IV SCH; -VANCOMYCIN/NS 1 gm 1 GM/250 ML BAG IV SCH; +dexAMETHasone 10 MG/ML VIAL ONE; +propofoL 200 MG/20 ML VIAL IV ONE
[2023-11-04] MEDS: NA CHLORIDE 0.9% 1,000 ML ONE (06:50)
[2023-11-04] MEDS: CEFAZOLIN SODIUM 2 GM/VIAL ONE (08:30)
[2023-11-04] MEDS: BUPIVACAINE 0.5% PF 10 ML VIAL ONE (08:44)
[2023-11-04] MEDS: COLLAGENASE 30 GM OINTMENT TOP ONE (08:55)
--- NOTE | 2023-11-04 09:07 | P.OP ---
Date of Service: 11/04/23 Preop diagnosis: Nonhealing right foot wound with history of infection and peripheral vascular disease Postop diagnosis: Same Procedure performed: Debridement of right foot wound 3 x 3 cm to subcutaneous tissue Surgeon: Gunnar Velazquez MD Banking Services Clerk: None Estimated blood loss: Minimal Specimen: Debridement tissue Findings: As above Anesthesia: General Complications: None Drains: None Fluids and blood products: Nonapplicable Disposition: Recovery room Operative note: Patient brought to the OR and placed in supine position. General anesthesia began. Patient prepped and draped in the usual sterile fashion. Marcaine 0.5% infiltrated locally. 15 blade used to make a 3 x 3 cm incision to excise all of the undermining tissue. Subcutaneous tissue debrided with sharp dissection. Wound irrigated and bleeding controlled cautery. Wet-to-dry normal saline dressing changes with Santyl applied. Patient awakened and taken to recovery room in good general condition. CC:
[2023-11-04 10:29] VITALS: BP 113/65; TEMP 96.4; O2SAT 97
== END | disposition home or self-care (01) ==
LOC: PRE 06:34
PROVIDERS: ATTEND Surgery
PROC: 0JBQ0ZZ Excision of Right Foot Subcutaneous Tissue and Fascia, Open Approach (ICD-10-PCS; principal; 2023-11-04 08:30)
DX: T81.49XA Infection following a procedure, other surgical site, initial encounter (principal); I73.9 Peripheral vascular disease, unspecified; E11.621 Type 2 diabetes mellitus with foot ulcer; I10 Essential (primary) hypertension
CPT/HCPCS: 36415; 85610; 82947 ×2; 88304; 85730; 11042; J3590; J2704; J2710; J2001; J2250; J3010 ×2; J1100; J2405; J7030; J0690

== ENCOUNTER 2025-01-01 06:11 | Day surgery (SDC) | payer BC ==
[2024-12-28 12:21] LABS: Absolute Eosinophils 0.4 K/uL (0-0.5); Absolute Lymphocytes (CBC) 1.1 K/uL (0.7-4.9); Absolute Monocytes 0.4 K/uL (0.1-1.3); Absolute Neutrophil 3.6 K/uL (1.8-8.0); Basophils % 0.8 % (0-1.3); Eosinophils % 6.7 % (0-4.4); Hematocrit 38.3 % (39.6-49.0); Hemoglobin 13.4 g/dL (13.6-17.9); Lymphocytes % 19.9 % (15.3-44.8); MCH 30.8 pg (27.0-35.0); MCV 88.2 fL (80-100); MPV 10.5 fL (7.6-11.3); Monocytes % 6.5 % (3.3-12.3); Neutrophils % 66.1 % (41.7-73.7); Nucleated Red Blood Cells % 0.1 % (0-0); Platelets 148 thou/uL (152-406); RBC Red Blood Cell Count 4.35 M/uL (4.33-5.43); Red Cell Distribution Width 13.1 % (12.1-15.2)
[2024-12-28 12:27] LABS: PT Prothrombin Time 10.6 SECONDS (10-13.0); Protime INR 0.93
[2024-12-28 12:28] LABS: PTT, Activated Partial Thromb 31.8 SECONDS (27.2-37.4)
[2024-12-28 12:38] LABS: Anion Gap 10.4 mEq/L (5.0-15.0); Potassium 4.4 mEq/L (3.5-5.1)
--- NOTE | 2024-12-28 12:43 | RAD REPORT ---
EXAM: Chest Pa And Lat (2 Views) HISTORY: 59 years Male pre op COMPARISON: 07/29/2023 FINDINGS: LUNGS/PLEURA: The lungs are clear. No pleural effusions or pneumothorax. No pulmonary edema. CARDIAC/MEDIASTINUM: The cardiac silhouette is within normal limits. UPPER ABDOMEN: No significant abnormality. BONES: No acute abnormality. LINES/TUBES/OTHER: N/A IMPRESSION: No evidence of acute cardiopulmonary disease. No significant change from prior.
[2025-01-01] MEDS ORDERED: EPINEPHRINE 1 MG/ML VIAL ONE (07:42)
[2025-01-01] MEDS ORDERED: FENTANYL CITR 100 MCG/2 ML ONE (07:42)
[2025-01-01] MEDS ORDERED: MIDAZOLAM HCL 2 MG/2 ML INJ ONE ×2 (07:42→07:58)
[2025-01-01] MEDS ORDERED: dexAMETHasone 10 MG/ML VIAL ONE ×2 (07:42→07:58)
[2025-01-01] MEDS ORDERED: BUPIVACAINE 0.5% PF 10 ML VIAL ONE (07:42)
[2025-01-01] MEDS ORDERED: LIDOCAINE 1% MPF 5 ML VIAL ONE (07:42)
[2025-01-01] MEDS ORDERED: ROCURONIUM 50 MG/5 ML VIAL IV ONE (07:58)
[2025-01-01] MEDS ORDERED: propofoL 200 MG/20 ML VIAL IV ONE (07:58)
[2025-01-01] MEDS ORDERED: ONDANSETRON 4 MG/2 ML VIAL ONE (07:58)
[2025-01-01] MEDS ORDERED: KETOROLAC 30 MG/ML INJ ONE (07:58)
[2025-01-01] MEDS ORDERED: LIDOCAINE 2% MPF 5 ML VIAL ONE (07:58)
[2025-01-01] MEDS: CEFAZOLIN SODIUM 2 GM/VIAL ONE (08:00)
[2025-01-01] MEDS: EPINEPHRINE 1 MG/ML VIAL ONE (08:50)
--- NOTE | 2025-01-01 10:44 | RAD REPORT ---
EXAMINATION: Shoulder 1 View VIEWS: One view CLINICAL INDICATION: Male, 59 years old. S/P RCR REVISION, BT COMPARISON: No prior exam. IMPRESSION: Postoperative changes in the soft tissues of the left shoulder. No acute fracture identified.
[2025-01-01 10:55] VITALS: TEMP 97
--- NOTE | 2025-01-01 11:10 | P.BOP ---
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
[2025-01-01] MEDS: CODEINE 30MG/APAP 300MG TAB ONE (11:18)
[2025-01-01] MEDS: NA CHLORIDE 0.9% 1,000 ML ONE (11:50)
[2025-01-01 12:51] VITALS: BP 107/64
[2025-01-01 12:52] VITALS: O2SAT 94
--- NOTE | 2025-01-05 12:53 | EKG ---
Test Date: 2024-12-28 Test Time: 11:34:27 Modeler: DAVID MEASUREMENT RESULTS: Intervals: Rate: 68 MS: 164 QRSD: 80 QT: 378 QTc: 401 [place]: P: 43 MS: 164 QRS: 23 T: 39 INTERPRETIVE STATEMENTS: Normal sinus rhythm Low voltage QRS Borderline ECG Compared to ECG 07/23/2023 11:22:42 Low QRS voltage now present Electronically Signed On 01-05-25 12:34:34 CDT by Ceasar Fernandez
== END 2025-01-01 12:00 | disposition home or self-care (01) ==
LOC: OR 06:11
PROVIDERS: ATTEND Orthopaedic Surgery Sports Medicine
PROC: 0LM24ZZ Reattachment of Left Shoulder Tendon, Percutaneous Endoscopic Approach (ICD-10-PCS; principal; 2025-01-01 08:00)
DX: S46.012A Strain of muscle(s) and tendon(s) of the rotator cuff of left shoulder, initial encounter (principal); M75.22 Bicipital tendinitis, left shoulder
CPT/HCPCS: 93005; 85025; 80048; 36415; 85610; 82947 ×2; 85730; 71046; 73020; 29827; J2704; J2003 ×2; J2250 ×2; J3010; J1100 ×2; J0171 ×2; J2405; J7030